=== PATIENT | male | born 1950 | race Caucasian/White ===

== ENCOUNTER → 2017-08-01 08:34 | Outpatient (CLI) | payer MEDICARE, OTHER, SELFPAY ==
--- NOTE | 2017-08-01 08:38 | AAAS_ITS ---
Reason For Study: AAA Aorta Measurements Aorta Doppler Measurements Proximal aorta measures1.6 x 1.6cm. in cross- Peak systolic flow velocities within the proximal sectional axis. aorta measure 77.3 cm/sec. Proximal aorta measures1.7cm. in longitudinal Peak systolic flow velocities within the mid axis. aorta measure 81.2 cm/sec. Mid aorta measures2.5 x 2.6cm. in cross-sectionalPeak systolic flow velocities within the distal axis. aorta measure 99.4 cm/sec. Mid aorta measures2.4cm. in longitudinal axis. Distal aorta measures1.6 x 1.7cm. in cross- sectional axis. Distal aorta measures1.7cm. in longitudinal axis. Left Iliac Artery Left iliac artery measures 1.2 cm. in the longitudinal axis. Left iliac artery measures 1.3 x 1.2 cm. in the cross-sectional axis. Peak systolic velocity in the left iliac artery measures 140.0 cm/sec. Right Iliac Artery Right iliac artery measures 1.1 cm. in the longitudinal axis. Right iliac artery measures 1.1 x 1.1 cm. in the cross-sectional axis. Peak systolic velocity in the right iliac artery measures 83.6 cm/sec. Procedure Aorta IVC Iliac vasculature or bypass grafts 42028. Exam performed in department. Interpretation Summary No evidence for abdominal aortic aneurysm wth maximal mid aortic diameter of 2.5 x 2.6 cm Right iliac 1.1cm Left iliac 1.3 cm Ordering Physician: Zeferino Melchor Referring Physician: Zeferino Melchor Performed By: Sandi Bean RVT
== END ==
PROVIDERS: Family Provider Internal Medicine; PCP Internal Medicine; Visit Provider Surgery
DX: I71.4 Abdominal aortic aneurysm, without rupture (principal)
CPT/HCPCS: 76706

== ENCOUNTER 2022-06-08 08:42 | Day surgery (SDC) | payer MEDICARE, SELFPAY ==
--- NOTE | 2022-06-05 12:06 | EKG12_ITS ---
Test Reason : PREOP Blood Pressure : / mmHG Vent. Rate : 074 BPM Atrial Rate : 074 BPM P-R Int : 198 ms QRS Dur : 078 ms QT Int : 390 ms P-R-T Axes : 046 -17 046 degrees QTc Int : 432 ms Normal sinus rhythm Normal ECG Confirmed by JOANN ALEX, MOISES ([id number]), primer expeditor and drier KEVIN CORONADO ([id number]) on 06/05/2022 1:21:09 PM Referred By: León Cook Confirmed By:MOISES DAVID MD
--- NOTE | 2022-06-05 12:06 | RAD_ITS ---
EXAM: XR CHEST, 2 VIEWS CLINICAL INDICATION: PRE-OP -- HAS EKG FIRST, WILL CALL TECHNIQUE: Frontal and lateral views of the chest. This report was created using [employer] report generation technology. COMPARISON: None. FINDINGS: LUNGS AND PLEURAL SPACES: Unremarkable. No consolidation or edema. No pneumothorax. No effusion. HEART: Unremarkable. Cardiac silhouette not enlarged. MEDIASTINUM: Central airways and mediastinal contour are unremarkable. BONES/JOINTS: Unremarkable. SOFT TISSUES: Unremarkable. RAD/Chest PA and Lateral IMPRESSION: No radiographic evidence of acute cardiopulmonary disease. Electronically Signed: Deshawn Capone MD at 5:54 EST ,
[2022-06-05 12:26] LABS: Absolute Lymphocyte Count 1.55 X10^3/uL (0.83-4.51); Basophil# 0.02 X10^3/uL; Basophil% 0.2 % (0-1); Eosinophil# 0.15 X10^3/uL; Eosinophils% 1.8 % (0-5); Hematocrit 40.3 % (40-54); Hemoglobin 13.8 g/dL (13.0-16.5); Lymphocyte # 1.55 X10^3/ul (0.83-4.51); Lymphocyte % 18.7 % (19-41); Mean Corp Hgb Conc 34.2 g/dL (32-36); Mean Corpuscular Hgb 31.7 pg (27.0-32.0); Mean Corpuscular Volume 92.4 fL (80-94); Mean Platelet Vol. 10.9 fl (6.2-12.0); Monocyte# 0.48 X10^3/uL; Monocyte% 5.8 % (0-10); NRBC Flagged by Analyzer 0 % (0-5); Neutrophil % 72.3 % (47-70); Platelet Count 183 K/mm3 (150-450); RBC Distribution Width CV 12.1 % (11.6-14.6); RBC Distribution Width SD 41.6 fl (35.1-43.9); Red Blood Count 4.36 M/mm3 (4.6-6.2); White Blood Count 8.3 K/mm3 (4.4-11.0)
[2022-06-05 12:57] LABS: Anion Gap 6 (5-15); BUN 24 mg/dL (7-18); BUN/Creat Ratio 24.9 RATIO (10-20); Calcium,Total 8.7 mg/dL (8.5-10.1); Chloride 106 mmol/L (98-107); Creatinine, Serum 0.96 mg/dL (0.70-1.30); EST Glomerular Filtration Rate 82 mL/min (>60); Est Glom Filt Rate - Afr Amer 99 mL/min (>60); Glucose 280 mg/dL (74-106); Sodium Level 140 mmol/L (136-145)
[2022-06-05 14:16] LABS: Hemoglobin A1c 8.1 % (3.8-5.6)
[2022-06-08] MEDS: Lactated Ringers 1,000 ML 15 ML IV (08:55)
[2022-06-08 09:18] VITALS: BP 144/79; PULSE 72; RESP 16; TEMP 36.9; O2SAT 94; BMI 29.8
[2022-06-08 09:41] LABS: Bedside Glucose 193 mg/dL (74-106)
[2022-06-08] MEDS: Cefazolin 2 GM in 0.9% Normal Saline 100 ML IV (10:22)
--- NOTE | 2022-06-08 10:45 | RAD_ITS ---
STUDY: X-RAY - LEFT ANKLE REASON FOR EXAM: Male, 71 years old. Intraoperative digital documentation views of ORIF of ankle. TECHNIQUE: 10 intraoperative digital documentation view(s) of the ankle. COMPARISON: None. FINDINGS: 10 intraoperative digital documentation views show plate and screw fixation of the fibula and syndesmotic fusion. RAD/Ankle 2 Views IMPRESSION: Intraoperative digital documentation views. Electronically Signed: Kimani Lacey, at 11:43 EST ,
[2022-06-08 11:35] VITALS: BP 144/79; BP 147/68; PULSE 90; RESP 18; TEMP 36.1; O2SAT 93
[2022-06-08 11:45] VITALS: BP 144/79; BP 164/77; PULSE 82; RESP 18; O2SAT 95
[2022-06-08 12:00] VITALS: BP 144/79; BP 149/7; PULSE 78; RESP 18; O2SAT 95
[2022-06-08 12:14] VITALS: BP 144/79; BP 150/74; PULSE 77; RESP 18; TEMP 36.4; O2SAT 97
[2022-06-08 12:30] VITALS: BP 144/79
[2022-06-08 12:35] LABS: Bedside Glucose 166 mg/dL (74-106)
--- NOTE | 2022-06-08 20:50 | OP.PCM_ITS ---
Report of Operation Date of Procedure: 06/08/22 Description of Surgical Findings:: Description of Surgical Findings:: Preoperative diagnosis: 1. Left ankle syndesmosis rupture/Maisonneuve fracture Postoperative diagnosis: 1. Left ankle syndesmosis rupture/Maisonneuve fracture Procedure: Open reduction internal fixation left ankle syndesmosis Primary Surgeon: León Cook DO Auto Damage Adjuster: Cammy Nagy PA-C Anesthesia: General with popliteal block [employer] Plant Operator: Deniz De La Rosa CRNA Complications: None apparent Estimated blood loss: 10 cc IV fluids: Per anesthesia record Intraoperative medications: 2 g Ancef, 10 cc 0.25% medial ankle periosteal block Urine output: None recorded Specimen: None Packing/drains: None Implants: Arthrex tight rope x2 with Arthrex 2 hole syndesmosis tubular plate Preoperative indications: This is a 71-year-old male who sustained an injury to his left ankle approximately 2 weeks ago. X-rays revealed a proximal fibula fracture. He followed up in our office and stress radiographs revealed medial clear space widening with concern for syndesmotic injury. Operative intervention in the form of left ankle syndesmosis open reduction internal fixation was reviewed with the patient. I discussed the risks, benefits, alternatives to procedure. Risks included but were not limited to bleeding, infection, loss of life or limb, persistent pain, persistent instability, stiffness, hardware removal or symptomatic hardware, posttraumatic arthritis, risk of anesthesia. Patient expressed understanding of these risks and wished to proceed with surgery. Description of procedure: Patient was identified in the preoperative holding area by name, medical record number, and date of . The operative extremity was marked. All questions were answered to patient satisfaction. Informed consent was confirmed. In the preoperative holding area, a popliteal block was administered by anesthesia staff for intraoperative and postoperative analgesia. At time of his procedure, patient was brought to the operative suite and positioned supine a standard operating table. General anesthesia was induced and laryngeal mask airway placed. After securing the tube, patient was positioned for surgery. A bump was placed under the patient's left hip and the left lower extreme was elevated on bath blankets. All bony prominences were well-padded. We then prepped and draped the right ankle in a normal, sterile orthopedic fashion. We then performed a timeout with all parties in attendance in agreement with the side, site, operation to be performed. No concerns were voiced and elected proceed. 2 g Ancef was administered by the incision by anesthesia staff. I first brought in fluoroscopy to perform stress radiography of the ankle. An external rotation, abduction stress test was applied to the right ankle and revealed medial clear space widening and increased tib-fib gapping. I then planned my incision overlying the syndesmosis. Skin was sharply incised with a 15 blade scalpel. Dissection was carried down to the level of the periosteum of the fibula. I opened the anterior compartment fascia to gain access to the syndesmosis. Injury to the syndesmotic ligaments was visualized. I placed a hemostat within the syndesmosis applying a translatory cotton test, which also demonstrated syndesmotic instability. I applied digital pressure over the lateral fibula to reduce the syndesmosis. I then drilled quad cortically for a Arthrex tight rope at the inferior portion of the syndesmosis and approximately 30 degree anterior angle in line with the qawalangin syndesmosis. The 3.5 mm drill was then removed and the tight rope was passed through the vendor supplied 2 hole plate and subsequently through all 4 cortices. I then flipped the button and subsequently tightened the suture button device to maximum tension. Approximately 1 cm proximal, and additional quad cortical drill course was made parallel with the prior 1 and parallel with the tibial plafond. Again, the tight rope was passed, flipped, tightened, and tied. Sutures were cut. F luoroscopic stress test was applied and syndesmosis appeared stable. Wound was copiously irrigated with normal saline. I anesthetized the medial ankle periosteum with 10 cc 0.25% plain bupivacaine. Dermis was reapproximated with 2-0 Vicryl suture. Horizontal mattress 3-0 nylon suture was used to reapproximate the skin. Sterile compression dressing applied as well as a well- padded posterior fiberglass splint was applied. Patient was able to be safely extubated in the operative suite without difficulty. He was transferred to his hospital bed and subsequently to PACU in stable condition. Need for skilled physician assistant: Cmamy Nagy PA-C was critical to the outcome of the case. During the course of the procedure the physician physician assistant played a vital role. Her intimate knowledge of my steps in the procedure aided in safe and expedient completion of the procedure. The PA played a vital role in positioning particularly in obtaining the appropriate positioning. The PA was also vital in the retraction of soft tissues during the exposure and protecting vital structures. The PA was also vital and obtaining fracture reduction and assisting with hardware placement. She also played a vital role in closure and splint application with my direct supervision. Post Operative Plan: Weightbearing: Nonweightbearing operative extremity Antibiotics: 2 g Ancef x 1 dose preoperatively DVT Prophylaxis:ASA 81 mg BID Hayden: None Dressing: Maintain splint, keep it clean dry and intact until follow-up X-Rays: 2 weeks postop in the office out of splint Pain Medication: Oxycodone prescription provided in the office Follow-up: 2 weeks post-operatively with me in the office
--- NOTE | 2022-06-08 20:50 | DCINST_ITS ---
Discharge Instructions Follow Up Care Test Results: Test results from this visit will be discussed in further detail at your follow- up appointment, if applicable. Discharge Plan Admission Attending Provider: León Coko Primary Care Provider: Gladys Sasm Discharge Orders/Prescriptions Prescriptions: No Action metformin 500 mg tablet extended release 24 hr 500 mg PO TID atorvastatin 20 MG tablet 20 mg PO QHS amlodipine 5 MG tablet 5 mg PO DAILY ascorbic acid (vitamin C) 500 MG tablet 500 mg PO DAILY@0800 lisinopril 30 MG tablet 40 mg PO DAILY aspirin 81 MG tablet,chewable 81 mg PO DAILY@0800 cinnamon bark 500 MG capsule 500 mg PO DAILY carvedilol 6.25 mg Tablet 6.25 mg PO BID Rx Instructions: must administer with a meal/food Referrals / Follow Up: Gladys Sams MD [Primary Care Provider] - Disposition Disposition (needs filled in before D/C Order can be placed): Home, Self Care
== END 2022-06-08 13:00 | disposition home or self-care (01) ==
LOC: SDC 08:46 → AC 08:53
PROVIDERS: Anesthesiology; PCP Internal Medicine; Referring Provider Student in an Organized Health Care Education/Training Program; Visit Provider Student in an Organized Health Care Education/Training Program
PROC: (CPT 27829; principal; 2022-06-08 10:15)
DX: S82.862A Displaced Maisonneuve's fracture of left leg, initial encounter for closed fracture (principal); E11.9 Type 2 diabetes mellitus without complications; W10.9XXA Fall (on) (from) unspecified stairs and steps, initial encounter; I10 Essential (primary) hypertension; E78.00 Pure hypercholesterolemia, unspecified; E66.8 Other obesity; Z68.31 Body mass index [BMI] 31.0-31.9, adult; Z79.82 Long term (current) use of aspirin; Z79.84 Long term (current) use of oral hypoglycemic drugs; Z79.899 Other long term (current) drug therapy; Z87.891 Personal history of nicotine dependence
CPT/HCPCS: 27829; 01480; 36415; 71046; 73600; 76000; 80048; 82962; 83036; 85025; 93005; C1713; J7120; J2405

== ENCOUNTER 2023-04-07 21:34 | Emergency (ER) | payer MEDICARE, SELFPAY ==
[2023-04-07 21:35] VITALS: BP 188/72; PULSE 79; RESP 15; TEMP 36.8; O2SAT 95; BMI 29.9
[2023-04-07 22:01] LABS: Bacteria 0 SEEN /hpf (None Seen); Mucous, Urine 0 SEEN /hpf (<or=2+); Squamous Epithelial Cells - UA 0 SEEN /hpf (0-5)
--- NOTE | 2023-04-07 22:06 | CT_ITS ---
STUDY: CT ABDOMEN AND PELVIS WITHOUT CONTRAST REASON FOR EXAM: Male, 72 years old. flank pain RADIATION DOSAGE (If Supplied By Facility): CTDIvol = ( 10.89 ) mGy, DLP = ( 568.74 ) mGycm TECHNIQUE: Transaxial images were obtained from the dome of the diaphragm to the symphysis pubis without oral contrast, and without intravenous contrast. Sagittal and coronal images were reconstructed. Individualized dose optimization techniques were used for this CT. COMPARISON: None. FINDINGS: The visualized lung bases are unremarkable. Coronary artery atherosclerosis. Normal liver. Normal gallbladder and extrahepatic biliary system. Normal spleen. Normal pancreas. Normal bilateral adrenal glands. Normal right kidney. Mild left hydronephrosis and perinephric stranding with a 3 mm calculus in the distal left ureter on image 148 of series 2. Normal visualized stomach. Normal small intestine. Normal colon. The appendix is visualized and appears normal. Atherosclerosis of the abdominal aorta with aortobiiliac stent graft. Normal inferior vena cava. Normal retroperitoneum. Normal urinary bladder. There is a small umbilical hernia containing fat. There are diffuse degenerative changes of the visualized lumbar spine. CT/Abdomen/Pelvis without Cont IMPRESSION: Distal left ureter calculus with mild hydronephrosis/obstruction. Electronically Signed: Chidi Shetty MD ([place]) at 22:41 EDT ,
[2023-04-07 22:07] LABS: Color, Urine Yellow (Yellow); Glucose, Dipstick 100 mg/dl (Normal); Ketone-Dipstick 15 mg/dl (Negative); Leukocyte Esterase-Dipstick Negative /ul (Negative); Nitrite-Dipstick Negative (Negative); Occult Blood-Urine 250 /ul (Negative); Protein-Dipstick 30 mg/dl (Negative); Specific Gravity, Urine 1.015 (1.002-1.030); Urine Bilirubin Dipstick Negative (Negative); Urine Clarity Sl. Cloudy (Clear); Urine Urobilinogen Normal (Normal)
[2023-04-07] MEDS: Ketorolac 15 MG/ML Vial IV (22:14)
[2023-04-07] MEDS: Ondansetron 4 MG/2 ML Vial IV (22:14)
[2023-04-07] MEDS: 0.9% Normal Saline (1000mL) 1,000 ML 999 ML IV (22:15)
[2023-04-07 22:18] LABS: Red Blood Cells-Urine > 100 SEEN /hpf (0-5)
[2023-04-07 22:21] LABS: White Blood Cells 0-5 SEEN /hpf (0-5)
[2023-04-07 22:27] LABS: Absolute Lymphocyte Count 1.44 X10^3/uL (0.83-4.51); Absolute Neutrophil Count 7.2 X10^3/uL (2.0-7.7); Basophil# 0.02 X10^3/uL; Basophil% 0.2 % (0-1); Eosinophil# 0.19 X10^3/uL; Hematocrit 39.8 % (40-54); Hemoglobin 13.4 g/dL (13.0-16.5); Lymphocyte # 1.44 X10^3/ul (0.83-4.51); Lymphocyte % 15.4 % (19-41); Mean Corp Hgb Conc 33.7 g/dL (32-36); Mean Corpuscular Hgb 31.3 pg (27.0-32.0); Mean Platelet Vol. 11.3 fl (6.2-12.0); Monocyte# 0.45 X10^3/uL; Monocyte% 4.8 % (0-10); NRBC Flagged by Analyzer 0 % (0-5); Neutrophil # 7.24 X10^3/uL (2.7-7.7); Neutrophil % 77.3 % (47-70); Platelet Count 140 K/mm3 (150-450); RBC Distribution Width CV 12.3 % (11.6-14.6); RBC Distribution Width SD 42.1 fl (35.1-43.9); Red Blood Count 4.28 M/mm3 (4.6-6.2); White Blood Count 9.4 K/mm3 (4.4-11.0)
[2023-04-07 22:41] LABS: Anion Gap 8 (5-15); BUN 25 mg/dL (7-18); BUN/Creat Ratio 26.6 RATIO (10-20); Calcium,Total 9.2 mg/dL (8.5-10.1); Chloride 106 mmol/L (98-107); Creatinine, Serum 0.94 mg/dL (0.70-1.30); EST Glomerular Filtration Rate 84 mL/min (>60); Est Glom Filt Rate - Afr Amer 101 mL/min (>60); Estimated Creatinine Clearance 66.41 ml/min; Glucose 246 mg/dL (74-106); Potassium 3.9 mmol/L (3.5-5.1); Sodium Level 142 mmol/L (136-145)
--- NOTE | 2023-04-07 23:31 | EX.ED.DYSGE1 ---
HPI History of Present Illness Chief Complaint: Flank Pain Informant: patient and spouse/S.O. Narrative Narrative: Patient is a 72-year-old male with past medical history of hypertension hyperlipidemia and diabetes. He states that around dinnertime he was sitting at rest when he noticed some left-sided back/flank pain. He states there was no trauma or excessive activity. He states the pain was sharp and causes nausea. He reports the pain improved but then 1 to 2 hours later returned and increased in severity. He states the pain has been persistent since that time and secondary to this comes in for evaluation [facility] Medical History (Updated 04/08/23 @ 00:[address] Gabe Arevalo, DO) AAA (abdominal aortic aneurysm) without rupture Back pain Cardiology follow-up encounter Diabetes Dietary restriction Former smoker History of stress test HTN (hypertension) Hyperlipidemia Wears glasses Home Medications amlodipine 5 mg tablet 5 mg PO DAILY 10/31/16 [History Last Taken 06/08/22] ascorbic acid (vitamin C) 500 mg tablet 500 mg PO DAILY@0800 10/31/16 [History Last Taken 10/31/16] aspirin 81 mg chewable tablet 81 mg PO DAILY@0800 10/31/16 [History Last Taken 10/31/16] atorvastatin 20 mg tablet 20 mg PO QHS 10/31/16 [History Last Taken 10/30/16] cinnamon bark 500 mg capsule 500 mg PO DAILY 10/31/16 [History Last Taken 10/31/16] lisinopril 30 mg tablet 40 mg PO DAILY 10/31/16 [History Last Taken 06/08/22] metformin 500 mg tablet,extended release 24 hr 500 mg PO TID 08/03/17 [History Last Taken Unknown] carvedilol 6.25 mg tablet 6.25 mg PO BID 06/05/22 [History Last Taken 06/08/22] ketorolac 10 mg tablet 10 mg PO Q6H PRN pain 5 days #20 tabs 04/07/23 [Rx Last Taken Unknown] ondansetron 4 mg disintegrating tablet 4 mg PO TID PRN nausea and vomiting #21 tabs 04/07/23 [Rx Last Taken Unknown] oxycodone-acetaminophen 5 mg-325 mg tablet (Percocet) 1 tab PO Q6H PRN pain 3 days #12 tabs 04/07/23 [Rx Last Taken Unknown] tamsulosin 0.4 mg capsule (Flomax) 0.4 mg PO DAILY #14 caps 04/07/23 [Rx Last Taken Unknown] Allergy/AdvReac Type Severity Reaction Status Date / Time No Known Allergies Allergy Verified 04/07/23 21:40 Family History (Updated 08/03/17 @ 09:32 by Danyelle Gonzalez) Mother Cancer lung Father Cancer brain Surgical History S/P colonoscopy S/P tonsillectomy Status post AAA (abdominal aortic aneurysm) repair Social History (Updated 08/03/17 @ 09:[address] Zeferino Melchor MD) Smoking Status: Former smoker ROS ROS ED Constitutional Constitutional ED: Denies chills or fever(s) ENT ENT ED: Denies sore throat Cardiovascular Cardiovascular: Denies chest pain Respiratory/Chest Respiratory/Chest: Denies cough or dyspnea Gastrointestinal Gastrointestinal: Reports abdominal pain; Denies diarrhea, nausea or vomiting Genitourinary Genitourinary ED: Denies dysuria, hematuria or urinary frequency Musculoskeletal Musculoskeletal: Reports back pain; Denies myalgias Integumentary Denies rash Neurologic Neurologic: Denies headache(s) Hematologic/Lymphatic Hematologic/Lymphatic: Denies easy bleeding or easy bruising EXAM Physical Exam Const Vital Signs: 04/07/23 21:35 04/07/23 23:45 Temperature 98.2 F Temperature Source Temporal Pulse Rate 79 70 Respiratory Rate 15 18 Blood Pressure 188/72 H 136/64 H Blood Pressure Mean 110 88 Pulse Ox 95 96 Oxygen Delivery Method Room Air Positive well nourished and well developed General Appearance ED: well developed HEENT HEENT Narrative: Normocephalic atraumatic Eyes PERRL and EOMs intact bilaterally General Eye ED: Negative for scleral icterus Neck supple Resp normal respiratory effort and clear to auscultation bilaterally Cardio regular rate and regular rhythm Rate: other Other Details: Heart is regular rate and rhythm without murmurs rubs or gallops Radial and carotid pulses are equal and symmetric GI normal to inspection, nondistended, normoactive bowel sounds, non-tender, non-distended and no masses GI Narrative: No voluntary guarding or rigidity Pulsatile mass or fluid wave Auscultation: normoactive bowel sounds Palpation: soft Back/Spine Back/Spine Narrative: Positive left CVA pain noted Extremity normal to inspection Neuro oriented x3, CN's II-XII intact bilaterally and no sensory deficits noted Sensorium / Orientation: alert Motor Exam: strength 5/5 throughout Psych mental status grossly normal Skin no rashes or lesions noted Skin Narrative: No overlying soft tissue changes to suggest trauma or infection General Skin Exam: Negative for jaundice MDM MDM MDM Narrative Medical decision making narrative: Patient presented to the ER hypertensive but otherwise with stable vitals. History and exam is most concerning for kidney stone but other differential diagnoses are for diverticulitis versus UTI versus pyelonephritis versus pancreatitis or biliary colic. As history and exam is most consistent with kidney stone I like to perform basic laboratory study. Patient CT scan did show a 3 mm stone causing mild hydronephrosis. However there are no signs of urosepsis or acute kidney injury or UTI or severe electrolyte derangement. After treatment patient reported resolution of his pain and vitals remained stable and therefore he is otherwise safe for discharge and can follow-up with urology on an outpatient basis History & Record Review Discussion w/independent historian: Patient and Significant other Lab Data Attestation: I reviewed the patient's lab results. Labs: Laboratory Results - last 24 hr 04/07/23 04/07/23 21:53 22:15 WBC 9.4 RBC 4.28 L Hgb 13.4 Hct 39.8 L MCV 93.0 MCH 31.3 MCHC 33.7 RDW Std Deviation 42.1 RDW Coeff of Pricila 12.3 Plt Count 140 L MPV 11.3 Immature Gran % (Auto) 0.300 Neut % (Auto) 77.3 H Lymph % (Auto) 15.4 L Woods % (Auto) 4.8 Eos % (Auto) 2.0 Baso % (Auto) 0.2 Absolute Neuts (auto) 7.2 Absolute Lymphs (auto) 1.44 Nucleated RBC % 0 Sodium 142 Potassium 3.9 Chloride 106 Carbon Dioxide 28.0 Anion Gap 8 BUN 25 H Creatinine 0.94 Estim Creat Clear Calc 66.41 Est GFR (MDRD) Af Amer 101 Est GFR (MDRD) Non-Af 84 BUN/Creatinine Ratio 26.6 H Glucose 246 H Calcium 9.2 Urine Color Yellow Urine Clarity Sl. Cloudy Urine pH 8.0 Ur Specific [place] 1.015 Urine Protein 30 H Urine Glucose (UA) 100 H Urine Ketones 15 H Urine Occult Blood 250 H Urine Nitrite Negative Urine Bilirubin Negative Urine Urobilinogen Normal Ur Leukocyte Esterase Negative Urine RBC > 100 SEEN Urine WBC 0-5 SEEN Ur Squamous Epith Cells 0 SEEN Urine Bacteria 0 SEEN Urine Mucus 0 SEEN Radiography Diagnostic Testing: Clinical Impression(s) from Imaging Studies Abdomen/Pelvis CT 04/07/23 22:06 IMPRESSION: Distal left ureter calculus with mild hydronephrosis/obstruction. Electronically Signed: Chidi Shetty MD ([place]) at 22:41 EDT , Discharge Plan Triage Chief Complaint: Flank Pain ED Provider: Gabe Arevalo Dx/Rx/DC Orders Clinical Impression: Renal colic, Kidney stone on left side, Diabetes, HTN (hypertension) Instructions: ED Kidney Stone w/ Colic Prescriptions: New tamsulosin [Flomax] 0.4 mg capsule 0.4 mg PO DAILY Qty: 14 0RF ondansetron 4 mg tablet,disintegrating 4 mg PO TID PRN (Reason: nausea and vomiting) Qty: 21 0RF ketorolac 10 mg tablet 10 mg PO Q6H PRN (Reason: pain) 5 Days Qty: 20 0RF oxycodone-acetaminophen [Percocet] 5-325 mg tablet 1 tab PO Q6H PRN (Reason: pain) 3 Days Qty: 12 0RF No Action metformin 500 mg tablet extended release 24 hr 500 mg PO TID atorvastatin 20 MG tablet 20 mg PO QHS amlodipine 5 MG tablet 5 mg PO DAILY ascorbic acid (vitamin C) 500 MG tablet 500 mg PO DAILY@0800 lisinopril 30 MG tablet 40 mg PO DAILY aspirin 81 MG tablet,chewable 81 mg PO DAILY@0800 cinnamon bark 500 MG capsule 500 mg PO DAILY carvedilol 6.25 mg Tablet 6.25 mg PO BID Rx Instructions: must administer with a meal/food Primary Care Provider: Gladys Sams Referrals: Guillaume Rosas MD [Med Staff - Active Staff] - Gladys Sams MD [Primary Care Provider] - Activity Restrictions/Additional Instructions: Please return to the ER if you develop a fever over 100.4 or your pain is not controlled outpatient therapy Disposition Disposition: Home, Self Care Discharge Date/Time: 04/07/23 23:46
[2023-04-07] MEDS: Oxycodone/Apap 5/325 Tablet PO (23:42)
[2023-04-07 23:45] VITALS: BP 136/64; PULSE 70; RESP 18; O2SAT 96
== END 2023-04-07 23:46 | disposition home or self-care (01) ==
PROVIDERS: Emergency Provider Emergency Medicine; PCP Internal Medicine; Visit Provider Emergency Medicine
DX: N13.2 Hydronephrosis with renal and ureteral calculous obstruction (principal); E11.9 Type 2 diabetes mellitus without complications; I10 Essential (primary) hypertension; E78.5 Hyperlipidemia, unspecified; Z79.82 Long term (current) use of aspirin; Z79.899 Other long term (current) drug therapy; Z87.891 Personal history of nicotine dependence
CPT/HCPCS: 74176; 80048; 81001; 85025; 96361; 96374; 96375; 99283; J7030; A4216; J2405

== ENCOUNTER 2025-04-26 13:00 | Emergency (ER) | payer MEDICARE, SELFPAY ==
[2025-04-26 13:01] VITALS: BP 150/74; PULSE 65; RESP 18; TEMP 36.4; O2SAT 99; BMI 28.2
--- OUTSIDE RECORDS SUMMARY | 2025-04-26 15:22 | XMS RPT_ITS | CCD ---
Author Organization [facility] Care Team Providers Care Bookstore Manager Name Role Phone MARIA ISABEL, TRENT E Unavailable Unavailable MARIA ISABEL, TRENT E Unavailable Unavailable MARIA ISABEL, TRENT Unavailable Unavailable MARIA ISABEL, TRENT Unavailable Unavailable MARIA ISABEL, TRENT Unavailable Unavailable MARIA ISABEL, TRENT Unavailable Unavailable KENNYYOBANI SONG Attending Unavailable KENNYYOBANI RUELAS Primary Care Unavailable KENNYYOBANI RUELAS Admitting Unavailable KENNYYOBANI SONG Attending Unavailable KENNYYOBANI RUELAS Primary Care Unavailable KENNYYOBANI SONG Admitting Unavailable India Sams MD Primary Care Provider Yobani Davis Unavailable India Sams MD Primary Care Provider Yobani Davis Unavailable [phone] Yobani Davis Unavailable [phone] India Sams Primary Care Unavailable Mesfin Acuña Attending Unavailable León Cook Referring Unavailable León Cook Referring Unavailable León Cook Attending Unavailable India Sams Primary Care Unavailable India Sams MD Primary Care Provider Yobani Davis Unavailable [phone] Yobani Davis OD Unavailable India Sams MD Primary Care Provider Torin TECHNICAL SUPPORT ANALYST.SENIOR EDITOR, Abigail Unavailable Teodoro TECHNICAL SUPPORT ANALYST.PACKING AND STAMPING MACHINE OPERATOR, Marium Unavailable Teodoro TECHNICAL SUPPORT ANALYST.PACKING AND STAMPING MACHINE OPERATOR, Marium Unavailable Harkins TECHNICAL SUPPORT ANALYST.SENIOR EDITOR, Abigail Unavailable INDIA SAMS Attending Unavailable TALAMPAS, INDIA D Primary Care Unavailable MARIUM VALERIO Attending Unavailable TALAMPAS, INDIA D Primary Care Unavailable TALAMPAS, INDIA D Primary Care Unavailable MARIUM VALERIO Referring Unavailable TALAMPAS, INDIA D Primary Care Unavailable TALAMPAS, INDIA D Referring Unavailable TALAMPAS, INDIA D Primary Care Unavailable TALAMPAS, INDIA D Referring Unavailable Medications Current Medications Medication Drug Class(es) Dates Sig (Normalized) Sig (Original) acetaminophen 325 mg / oxyCODONE hydrochloride 5 mg oral tablet (1 source) Opioid Agonist Start: 04-07-2023 take 1 tablet by mouth every six hours Oxycodone-Acetam inophen (Percocet) 5-325 mg tablet Active 1 TABLET PO EVERY 6 HOURS 12 3 April 07, 2023 amLODIPine 10 mg oral tablet (20 sources) Dihydropyridine Calcium Channel Charlie Start: 08-05-2024 take 1 tablet by mouth once daily amLODIPine (NORVASC) 10 mg tablet Take 1 tablet by mouth once daily. 90 tablet 3 08/05/2024 Active Start: 03-27-2022 End: 08-02-2024 take 1 tablet by mouth once daily amLODIPine (NORVASC) 10 mg tablet Take 1 tablet by mouth once daily. 90 tablet 3 12/29/2022 08/02/2024 Discontinued Start: 06-09-2021 End: 03-25-2022 take 1 tablet by mouth once daily amLODIPine (NORVASC) 10 mg tablet Take 1 tablet by mouth once daily. 90 tablet 3 06/09/2021 03/25/2022 Discontinued Start: 10-31-2016 take 5 mg by mouth once daily Amlodipine Active 5 MG PO DAILY October 31, 2016 12:00am Comment on above: Take 1 tablet by vania th once daily. ascorbic acid 500 mg oral tablet (20 sources) Vitamin C Start: 08-13-2007 ascorbic acid(VITAMIN C 500 MG TAB) Take one(1) tablet daily. 0 08/13/2007 Active Comment on above: Take one(1) tablet d aily. aspirin 81 mg chewable tablet (20 sources) Platelet Aggregation Inhibitor, Nonsteroidal Anti-inflammatory Drug Start: 10-31-2016 take 81 mg by mouth once daily Aspirin Active 81 MG PO DAILY@0800 October 31, 2016 12:00am Start: 08-13-2007 aspirin(ECOTRI N LOW STRENGTH 81 MG TAB) Take one(1) tablet daily. 0 08/13/2007 Active Comment on above: Take one(1) tablet d aily. atorvastatin 20 mg oral tablet (20 sources) HMG-CoA Reductase Inhibitor Start: take 1 tablet by mouth once daily atorvastatin (LIPITOR) 20 mg tablet Indications: Mixed hyperlipidemia Take 1 tablet by mouth once daily. 90 tablet 3 11/24/2024 Active Start: 10-31-2016 End: 11-22-2024 take 1 tablet by mouth once daily atorvastatin (LIPITOR) 20 mg tablet Indications: Mixed hyperlipidemia Take 1 tablet by mouth once daily. 90 tablet 3 02/21/2023 11/22/2024 Discontinued Comment on above: Take 1 tablet by vania th once daily. carvedilol 6.25 mg oral tablet (20 sources) alpha-Adrenergic Charlie, beta-Adrenergic Charlie Start: 06-05-2022 End: 01-26-2025 take 1 tablet by mouth twice daily carvedilol (COREG) 6.25 mg tablet Indications: Essential hypertension Take 1 tablet by mouth two times a day. 180 tablet 3 01/27/2025 Active Start: 10-31-2021 take 1 tablet by vania th twice daily carvedilol (COREG) 6.25 mg tablet Indications: Essential hypertension Take 1 tablet by mouth twice daily. 180 tablet 3 10/31/2021 Active Start: 01-05-2021 take 1 tablet by vania th twice daily carvedilol (COREG) 6.25 mg tablet Indications: Essential hypertension Take 1 tablet by mouth twice daily. 180 tablet 3 01/05/2021 Active Comment on above: Take 1 tablet by vania th twice daily. Take 1 tablet by vania th two times a day. cinnamon bark 500 mg oral capsule (20 sources) Start: 12-10-19 10 cinnamon bark(CINNAMON 500 MG CAP) Take one(1) tablet daily. 0 12/09/2009 Active Comment on above: Take one(1) tablet d aily. ibuprofen 200 mg oral tablet (20 sources) Nonsteroidal Anti-inflammatory Drug Start: 07-31-19 19 ibuprofen (MOTRIN) 200 mg tablet Indications: Back strain, initial encounter , Acute right-sided low back pain with right-sided sciatica May take 2 to 4 pills up to 4 times daily (max 2400 mg per day) 07/31/2018 Active Comment on above: May take 2 to 4 pill s up to 4 times daily (max 2400 mg per day) ketorolac tromethamine 10 mg oral tablet (1 source) Nonsteroidal Anti-inflammatory Drug, Cyclooxygenase Inhibitor Start: 04-07-20 take 10 mg by mouth every six hours Ketorolac Active 10 MG PO EVERY 6 HOURS 04 11April 07, 2023 12:00am lisinopril 40 mg oral tablet (20 sources) Angiotensin Converting Enzyme Inhibitor Start: 08-05-19 take 1 tablet by mouth once daily lisinopril (ZESTRIL) 40 mg tablet Indications: Essential hypertension Take 1 tablet by mouth once daily. 90 tablet 3 08/05/2024 Active Start: 12-29-2022 End: 08-02-2024 take 1 tablet by mouth once daily lisinopril (ZESTRIL) 40 mg tablet Indications: Essential hypertension Take 1 tablet by mouth once daily. 90 tablet 3 12/29/2022 08/02/2024 Discontinued Start: 05-13-2021 End: 02-27-2022 take 1 tablet by mouth once daily lisinopril (ZESTRIL, PRINIVIL) 40 mg tablet Indications: Essential hypertension Take 1 tablet by mouth once daily. 90 tablet 3 02/28/2022 Active Start: 10-31-2016 take 40 mg by mouth once daily Lisinopril Active 40 MG PO DAILY October 31, 2016 12:00am Comment on above: Take 1 tablet by vania th once daily. 24 hr metFORMIN hydrochloride 500 mg extended release oral tablet (20 sources) Biguanide Start: 08-03-19 End: 10-31-19 take 1 tablet by mouth three times daily before mealtime metFORMIN ER (GLUCOPHAGE XR) 500 mg 24 hr tablet Indications: Controlled type 2 diabetes mellitus without complication, without long-term current use of insulin (HCC) Take 1 tablet by mouth three times a day before meals. 270 tablet 3 10/30/2024 Active Comment on above: TAKE 1 TABLET BY VANIA TH THREE TIMES DAILY BEFORE MEALS. ondansetron 4 mg disintegrating oral tablet (1 source) Serotonin-3 Receptor Antagonist Start: 04-07-20 take 4 mg by mouth three times daily Ondansetron Active 4 MG PO THREE TIMES A DAY April 07, 2023 11:32pm tamsulosin hydrochloride 0.4 mg oral capsule (1 source) alpha-Adrenergic Charlie Start: 04-07-20 take 1 capsule by mouth once daily Tamsulosin (Flomax) 0.4 mg capsule Active 0.4 MG PO DAILY April 07, 2023 12:00am Completed/Discontinued Medications Medication Drug Class(es) Dates Sig (Normalized) Sig (Original) acetaminophen 325 mg / HYDROcodone bitartrate 5 mg oral tablet (2 sources) Opioid Agonist Start: 10-31-2016 End: 08-03-2017 Hydrocodone-Acetami nophen Discontinued 1 EACH PO EVERY 6 HOURS NEEDED October 31, 2016 12:00pm August 03, 2017 10:33am Blood-Glucose Meter (RELION PRIME METER) misc (1 source) Start: 12-21-2015 End: 07-25-2021 Blood-Glucose Meter (RELION PRIME METER) misc Checks sugars every 3 days or so 0 12/21/2015 07/25/2021 Discontinued Comment on above: Checks sugars every 3 days or so Problems Active Problems Problem Classification Problem Date Documented Date Episodic/Chronic Calculus of urinary tract (2 sources) Renal colic; Translations: [Unspecified renal colic] 04-07-2023 Episodic Diabetes mellitus with complications (6 sources) Hyperlipidemia; Translations: [Type 2 diabetes mellitus with other specified complication] Onset: 09-29-2024 09-29-2024 Chronic Diabetes mellitus without complication (20 sources) Type 2 diabetes mellitus without complication; Translations: [Type 2 diabetes mellitus without complications] Onset: 06-13-2021 Chronic Disorders of lipid metabolism (20 sources) Other hyperlipidemia; Translations: [Mixed hyperlipidemia] Onset: 08-13-2007 Resolved: 10-06-2013 Chronic Essential hypertension (20 sources) Essential (primary) hypertension; Translations: [Essential hypertension] Onset: 07-06-2016 Chronic Fracture of lower limb (1 source) Other fracture of upper and lower end of left fibula, initial encounter for closed fracture; Translations: [Other fracture of upper and lower end of left fibula, initial encounter for closed fracture] Onset: 07-18-2022 Episodic Immunizations and screening for infectious disease (6 sources) Patient encounter status; Translations: [Encounter for immunization] 10-02-2023 Episodic Occlusion or stenosis of precerebral arteries (20 sources) Carotid artery occlusion; Translations: [Occlusion and stenosis of unspecified carotid artery] Onset: 11-19-2013 11-19-2013 Chronic Other aftercare (1 source) Encounter for therapeutic drug level monitoring; Translations: [Encounter for therapeutic drug monitoring] Onset: 03-31-2025 Episodic Other circulatory disease (7 sources) History of repair of aneurysm of abdominal aorta using endovascular stent graft; Translations: [Presence of other vascular implants and grafts] 09-24-2016 Chronic Other circulatory disease (15 sources) History of endovascular stent graft for repair of abdominal aortic aneurysm; Translations: [Presence of other vascular implants and grafts] 09-24-2016 Chronic Other infections; including parasitic (1 source) Personal history of other infectious and parasitic diseases; Translations: [Personal history of COVID-19] Episodic Other nervous system disorders (20 sources) Disorder of autonomic nervous system; Translations: [Disorder of the autonomic nervous system, unspecified] Onset: 08-13-2007 11-18-2008 Chronic Other screening for suspected conditions (not mental disorders or infectious disease) (9 sources) Blood chemistry abnormal; Translations: [Other specified abnormal findings of blood chemistry] Onset: 08-13-2007 Resolved: 10-06-2013 10-06-2013 Episodic Other upper respiratory infections (2 sources) Acute upper respiratory infection; Translations: [Acute upper respiratory infection, unspecified] 05-14-2023 Episodic Residual codes; unclassified (2 sources) History of colonoscopy; Translations: [Other specified postprocedural states] 06-05-2022 Episodic Residual codes; unclassified (2 sources) History of repair of aneurysm of abdominal aorta; Translations: [Other specified postprocedural states] 06-05-2022 Episodic Screening and history of mental health and substance abuse codes (2 sources) Encounter for screening for depression; Translations: [Encounter for screening examination for other mental health and behavioral disorders] Onset: 04-07-2025 Episodic Unclassified (1 source) Unknown / UNK(Unknown) Onset: 04-23-2017 Past or Other Problems Problem Classification Problem Date Documented Da te Episodic/Chronic Abdominal hernia (20 sources) Umbilical hernia; Translations: [Umbilical hernia without obstruction or gangrene] Onset: 12-29-2013 12-29-2013 Episodic Aortic; peripheral; and visceral artery aneurysms (10 sources) Abdominal aortic aneurysm without rupture; Translations: [Abdominal aortic aneurysm (AAA) without rupture] Onset: 11-11-2013 Resolved: 09-24-2016 06-05-2022 Chronic Other connective tissue disease (20 sources) Plantar fasciitis of left foot; Translations: [Plantar fascial fibromatosis] Onset: 03-28-2018 03-28-2018 Episodic Other nutritional; endocrine; and metabolic disorders (8 sources) Obesity; Translations: [Obesity, unspecified] Onset: 08-13-2007 Resolved: 10-06-2013 10-06-2013 Chronic Unclassified (8 sources) Type 2 diabetes mellitus without complication; Translations: [Uncontrolled type 2 diabetes mellitus without complication, without long-term current use of insulin] Onset: 09-11-2016 Resolved: 10-11-2017 10-11-2017 Results Test Name Value Interpretation Reference Range Facility ALBUMIN/CREATININE RATIO, UR INEon 03-31-2025 Albumin DL <= 20 mg/L (U) [Mass/Vol] mg/dL Normal [facility] Comment on above: Order Comment: Speci men Type: URINE SPECIMEN Ordering Facility: [facility] Address: [address] [place] [address] Performed By: #### U ACR #### [facility] CLIA [id number] [address] [place] [address] [place] Albumin/Creatinine (U) [Mass ratio] <15 Normal <30 [facility] Comment on above: Order Comment: Speci men Type: URINE SPECIMEN Ordering Facility: [facility] Address: [address] [place] [address] Result Comment: Adul t Male and Female Nephrotic Criteria: <30 mg/g is considered normal to mildly increased 30-300 mg/g is considered moderately increased >300 mg/g is considered severely increased KDIGO. (2013). KDIGO 2012 Clinical Practice Guideline for the Evaluation and Management of Chronic Kidney Disease. Official Journal of the International Society of Nephrology, 3(1), 1-150. Performed By: #### U ACR #### [facility] CLIA [id number] [address] [place] [address] [place] Creatinine (U) [Mass/Vol] 78.6 mg/dL Normal 20.0-300.0 [facility] Comment on above: Order Comment: Speci men Type: URINE SPECIMEN Ordering Facility: [facility] Address: [address] [place] [address] Performed By: #### U ACR #### [facility] CLIA [id number] [address] [place] [address] [place] CBC W Auto Differential pane l (Bld)on 03-31-2025 Basophils (Bld) [#/Vol] 0.03 10*3/uL Normal <0.11 [facility] Comment on above: Order Comment: Speci men Type: BLOOD SPECIMEN Ordering Facility: [facility] Address: [address] [place] [address] Performed By: #### 5 7021-8 #### [facility] CLIA [id number] [address] [place] [address] [place] Basophils/100 WBC (Bld) 0.5 % Normal [facility] Comment on above: Order Comment: Speci men Type: BLOOD SPECIMEN Ordering Facility: [facility] Address: [address] [place] [address] Performed By: #### 5 7021-8 #### [facility] CLIA [id number] [address] [place] [address] [place] Differential cell count method Nom (Bld) Auto Normal [facility] Comment on above: Order Comment: Speci men Type: BLOOD SPECIMEN Ordering Facility: [facility] Address: [address] [place] [address] Performed By: #### 5 7021-8 #### [facility] CLIA [id number] [address] [place] [address] [place] Eosinophils (Bld) [#/Vol] 0.25 10*3/uL Normal <0.46 [facility] Comment on above: Order Comment: Speci men Type: BLOOD SPECIMEN Ordering Facility: [facility] Address: [address] [place] [address] Performed By: #### 5 7021-8 #### [facility] CLIA [id number] [address] [place] [address] [place] Eosinophils/100 WBC (Bld) 4.1 % Normal [facility] Comment on above: Order Comment: Speci men Type: BLOOD SPECIMEN Ordering Facility: [facility] Address: [address] [place] [address] Performed By: #### 5 7021-8 #### [facility] CLIA [id number] [address] [place] [address] [place] Erythrocyte distribution width (RBC) [Ratio] 12.4 % Normal 11.5-15.0 [facility] Comment on above: Order Comment: Speci men Type: BLOOD SPECIMEN Ordering Facility: [facility] Address: [address] [place] [address] Performed By: #### 5 7021-8 #### [facility] CLIA [id number] [address] [place] [address] [place] Hematocrit (Bld) [Volume fraction] 41.5 % Normal 39.0-51.0 [facility] Comment on above: Order Comment: Speci men Type: BLOOD SPECIMEN Ordering Facility: [facility] Address: [address] [place] [address] Performed By: #### 5 7021-8 #### [facility] CLIA [id number] [address] [place] [address] [place] Hemoglobin (Bld) [Mass/Vol] 14.4 g/dL Normal 13.0-17.0 [facility] Comment on above: Order Comment: Speci men Type: BLOOD SPECIMEN Ordering Facility: [facility] Address: [address] [place] [address] Performed By: #### 5 7021-8 #### [facility] CLIA [id number] [address] [place] [address] [place] Immature granulocytes (Bld) [#/Vol] 10*3/uL Normal <0.10 [facility] Comment on above: Order Comment: Speci men Type: BLOOD SPECIMEN Ordering Facility: [facility] Address: [address] [place] [address] Performed By: #### 5 7021-8 #### [facility] CLIA [id number] [address] [place] [address] [place] Immature granulocytes/100 WBC (Bld) 0.2 % Normal [facility] Comment on above: Order Comment: Speci men Type: BLOOD SPECIMEN Ordering Facility: [facility] Address: [address] [place] [address] Performed By: #### 5 7021-8 #### [facility] CLIA [id number] [address] [place] [address] [place] Lymphocytes (Bld) [#/Vol] 1.71 10*3/uL Normal 1.00-4.00 [facility] Comment on above: Order Comment: Speci men Type: BLOOD SPECIMEN Ordering Facility: [facility] Address: [address] [place] [address] Performed By: #### 5 7021-8 #### [facility] CLIA [id number] [address] [place] [address] [place] Lymphocytes/100 WBC (Bld) 28.2 % Normal [facility] Comment on above: Order Comment: Speci men Type: BLOOD SPECIMEN Ordering Facility: [facility] Address: [address] [place] [address] Performed By: #### 5 7021-8 #### [facility] CLIA [id number] [address] [place] [address] [place] MCH (RBC) [Entitic mass] 32.4 pg Normal 26.0-34.0 [facility] Comment on above: Order Comment: Speci men Type: BLOOD SPECIMEN Ordering Facility: [facility] Address: [address] [place] [address] Performed By: #### 5 7021-8 #### [facility] CLIA [id number] [address] [place] [address] [place] MCHC (RBC) [Mass/Vol] 34.7 g/dL Normal 30.5-36.0 [facility] Comment on above: Order Comment: Speci men Type: BLOOD SPECIMEN Ordering Facility: [facility] Address: [address] [place] [address] Performed By: #### 5 7021-8 #### [facility] CLIA [id number] [address] [place] [address] [place] MCV (RBC) [Entitic vol] 93.3 fL Normal 80.0-100.0 [facility] Comment on above: Order Comment: Speci men Type: BLOOD SPECIMEN Ordering Facility: [facility] Address: [address] [place] [address] Performed By: #### 5 7021-8 #### [facility] CLIA [id number] [address] [place] [address] [place] Monocytes (Bld) [#/Vol] 0.35 10*3/uL Normal <0.87 [facility] Comment on above: Order Comment: Speci men Type: BLOOD SPECIMEN Ordering Facility: [facility] Address: [address] [place] [address] Performed By: #### 5 7021-8 #### [facility] CLIA [id number] [address] [place] [address] [place] Monocytes/100 WBC (Bld) 5.8 % Normal [facility] Comment on above: Order Comment: Speci men Type: BLOOD SPECIMEN Ordering Facility: [facility] Address: [address] [place] [address] Performed By: #### 5 7021-8 #### [facility] CLIA [id number] [address] [place] [address] [place] Neutrophils (Bld) [#/Vol] 3.71 10*3/uL Normal 1.45-7.50 [facility] Comment on above: Order Comment: Speci men Type: BLOOD SPECIMEN Ordering Facility: [facility] Address: [address] [place] [address] Performed By: #### 5 7021-8 #### [facility] CLIA [id number] [address] [place] [address] [place] Neutrophils/100 WBC (Bld) 61.2 % Normal [facility] Comment on above: Order Comment: Speci men Type: BLOOD SPECIMEN Ordering Facility: [facility] Address: [address] [place] [address] Performed By: #### 5 7021-8 #### [facility] CLIA [id number] [address] [place] [address] [place] Nucleated RBC (Bld) [#/Vol] 10*3/uL Normal <0.01 [facility] Comment on above: Order Comment: Speci men Type: BLOOD SPECIMEN Ordering Facility: [facility] Address: [address] [place] [address] Performed By: #### 5 7021-8 #### [facility] CLIA [id number] [address] [place] [address] [place] Nucleated RBC/100 WBC (Bld) [Ratio] 0.0 /100 WBC Normal [facility] Comment on above: Order Comment: Speci men Type: BLOOD SPECIMEN Ordering Facility: [facility] Address: [address] [place] [address] Performed By: #### 5 7021-8 #### [facility] CLIA [id number] [address] [place] [address] [place] Platelet mean volume (Bld) [Entitic vol] 11.2 fL Normal 9.0-12.7 [facility] Comment on above: Order Comment: Speci men Type: BLOOD SPECIMEN Ordering Facility: [facility] Address: [address] [place] [address] Performed By: #### 5 7021-8 #### [facility] CLIA [id number] [address] [place] [address] [place] Platelets (Bld) [#/Vol] 165 10*3/uL Normal 150-400 [facility] Comment on above: Order Comment: Speci men Type: BLOOD SPECIMEN Ordering Facility: [facility] Address: [address] [place] [address] Performed By: #### 5 7021-8 #### [facility] CLIA [id number] [address] [place] [address] [place] RBC (Bld) [#/Vol] 4.45 10*6/uL Normal 4.20-6.00 [facility] Comment on above: Order Comment: Speci men Type: BLOOD SPECIMEN Ordering Facility: [facility] Address: [address] [place] [address] Performed By: #### 5 7021-8 #### [facility] CLIA [id number] [address] [place] [address] [place] WBC (Bld) [#/Vol] 6.06 10*3/uL Normal 3.70-11.00 [facility] Comment on above: Order Comment: Speci men Type: BLOOD SPECIMEN Ordering Facility: [facility] Address: [address] [place] [address] Performed By: #### 5 7021-8 #### [facility] CLIA [id number] [address] [place] [address] [place] Comprehensive metabolic 2000 panelon 03-31-2025 Albumin [Mass/Vol] 4.5 g/dL Normal 3.9-4.9 [facility] Comment on above: Order Comment: Speci men Type: BLOOD SPECIMEN Ordering Facility: [facility] Address: [address] [place] [address] Performed By: #### 2 4323-8 #### [facility] CLIA [id number] [address] [place] [address] [place] ALP [Catalytic activity/Vol] 54 U/L Normal 38-113 [facility] Comment on above: Order Comment: Speci men Type: BLOOD SPECIMEN Ordering Facility: [facility] Address: [address] [place] [address] Performed By: #### 2 4323-8 #### [facility] CLIA [id number] [address] [place] [address] [place] ALT [Catalytic activity/Vol] 24 U/L Normal 10-54 [facility] Comment on above: Order Comment: Speci men Type: BLOOD SPECIMEN Ordering Facility: [facility] Address: [address] [place] [address] Performed By: #### 2 4323-8 #### [facility] CLIA [id number] [address] [place] [address] [place] Anion gap [Moles/Vol] 12 mmol/L Normal 8-15 [facility] Comment on above: Order Comment: Speci men Type: BLOOD SPECIMEN Ordering Facility: [facility] Address: [address] [place] [address] Performed By: #### 2 4323-8 #### [facility] CLIA [id number] [address] [place] [address] [place] AST [Catalytic activity/Vol] 20 U/L Normal 14-40 [facility] Comment on above: Order Comment: Speci men Type: BLOOD SPECIMEN Ordering Facility: [facility] Address: [address] [place] [address] Performed By: #### 2 4323-8 #### [facility] CLIA [id number] [address] [place] [address] [place] Bilirubin [Mass/Vol] 0.7 mg/dL Normal 0.2-1.3 [facility] Comment on above: Order Comment: Speci men Type: BLOOD SPECIMEN Ordering Facility: [facility] Address: [address] [place] [address] Performed By: #### 2 4323-8 #### [facility] CLIA [id number] [address] [place] [address] [place] Calcium [Mass/Vol] 9.7 mg/dL Normal 8.5-10.2 [facility] Comment on above: Order Comment: Speci men Type: BLOOD SPECIMEN Ordering Facility: [facility] Address: [address] [place] [address] Performed By: #### 2 4323-8 #### [facility] CLIA [id number] [address] [place] [address] [place] Chloride [Moles/Vol] 104 mmol/L Normal 98-107 [facility] Comment on above: Order Comment: Speci men Type: BLOOD SPECIMEN Ordering Facility: [facility] Address: [address] [place] [address] Performed By: #### 2 4323-8 #### [facility] CLIA [id number] [address] [place] [address] [place] CO2 [Moles/Vol] 28 mmol/L Normal 22-30 [facility] Comment on above: Order Comment: Speci men Type: BLOOD SPECIMEN Ordering Facility: [facility] Address: [address] [place] [address] Performed By: #### 2 4323-8 #### [facility] CLIA [id number] [address] [place] [address] [place] Creatinine [Mass/Vol] 0.80 mg/dL Normal 0.73-1.22 [facility] Comment on above: Order Comment: Speci men Type: BLOOD SPECIMEN Ordering Facility: [facility] Address: [address] [place] [address] Performed By: #### 2 4323-8 #### [facility] CLIA [id number] [address] [place] [address] [place] eGFRcr SerPlBld CKD-EPI 2020 93 mL/min/1.73m??? Normal >=60 [facility] Comment on above: Order Comment: Speci men Type: BLOOD SPECIMEN Ordering Facility: [facility] Address: [address] [place] [address] Result Comment: Nadya mated Glomerular Filtration Rate (eGFR) is calculated using the 2020 CKD-EPI creatinine equation. This equation utilizes serum creatinine, sex, and age as parameters. The creatinine assay has traceable calibration to isotope dilution-mass spectrometry. Refer to KDIGO guidelines for clinical interpretation. In patients with unstable renal function, e.g. those with acute kidney injury, the eGFR may not accurately reflect actual GFR. Performed By: #### 2 4323-8 #### [facility] CLIA [id number] [address] [place] [address] [place] Glucose [Mass/Vol] 128 mg/dL High 74-99 [facility] Comment on above: Order Comment: Agnes olivas Type: BLOOD SPECIMEN Ordering Facility: [facility] Address: [address] [place] [address] Result Comment: The [place] Diabetes [employer] (ADA) provides guidance for cutoff values for fasting glucose and random glucose. The ADA defines fasting as no caloric intake for at least 8 hours. Fasting plasma glucose results between 100 to 125 mg/dL indicate increased risk for diabetes (prediabetes). Fasting plasma glucose results greater than or equal to 126 mg/dL meet the criteria for diagnosis of diabetes. In the absence of unequivocal hyperglycemia, results should be confirmed by repeat testing. In a patient with classic symptoms of hyperglycemia or hyperglycemic crisis, random plasma glucose results greater than or equal to 200 mg/dL meet the criteria for diagnosis of diabetes. Reference: Standards of Medical Care in Diabetes 2016, [place] [employer]. Diabetes Care. 2016.39(Suppl 1). Performed By: #### 2 4323-8 #### [facility] CLIA [id number] [address] [place] [address] [place] Potassium [Moles/Vol] 3.9 mmol/L Normal 3.7-5.1 [facility] Comment on above: Order Comment: Agnes olivas Type: BLOOD SPECIMEN Ordering Facility: [facility] Address: [address] [place] [address] Performed By: #### 2 4323-8 #### [facility] CLIA [id number] [address] [place] [address] [place] Protein [Mass/Vol] 6.9 g/dL Normal 6.3-8.0 [facility] Comment on above: Order Comment: Agnes olivas Type: BLOOD SPECIMEN Ordering Facility: [facility] Address: [address] [place] [address] Performed By: #### 2 4323-8 #### [facility] CLIA [id number] [address] [place] [address] [place] Sodium [Moles/Vol] 144 mmol/L Normal 136-144 [facility] Comment on above: Order Comment: Agnes olivas Type: BLOOD SPECIMEN Ordering Facility: [facility] Address: [address] [place] [address] Performed By: #### 2 4323-8 #### [facility] CLIA [id number] [address] [place] [address] [place] Urea nitrogen [Mass/Vol] 15 mg/dL Normal 9-24 [facility] Comment on above: Order Comment: Agnes olivas Type: BLOOD SPECIMEN Ordering Facility: [facility] Address: [address] [place] [address] Performed By: #### 2 4323-8 #### [facility] CLIA [id number] [address] [place] [address] [place] HbA1c (Bld)on 03-31-2025 Average glucose Estimated from glycated hemoglobin (Bld) [Mass/Vol] 134 mg/dL Normal [facility] Comment on above: Order Comment: Agnes olivas Type: BLOOD SPECIMEN Ordering Facility: [facility] Address: [address] [place] [address] Result Comment: eAG: (Estimated average glucose) is a calculated value from HgbA1c and is financial representative of the average blood glucose level in the last 2-3 month period. Performed By: #### 5 5454-3 #### [facility] CLIA [id number] [address] [place] [address] [place] HbA1c (Bld) [Mass fraction] 6.3 % High 4.3-5.6 [facility] Comment on above: Order Comment: Agnes olivas Type: BLOOD SPECIMEN Ordering Facility: [facility] Address: [address] [place] [address] Result Comment: [place] Diabetes Association guidelines indicate that patients with HgbA1c in the range 5.7-6.4% are at increased risk for development of diabetes, and intervention by lifestyle modification may be beneficial. HgbA1c greater or equal to 6.5% is considered diagnostic of diabetes. 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 Chief Complaint Patient presents with: F/U 6 months HPI Jose D is a 74 year old male who presents for follow-up for hypertension. They are here today for a recheck of blood pressure. Blood pressure appears to be stable. Denies any symptoms referable to elevated blood pressure. No reports of headache, chest pain, palpitations, dyspnea and peripheral edema. Tolerating medications well. Jose D Roman is a 74 year old male here today for a check up on his diabetes. He is compliant on taking his medications :Yes No reports of low blood sugar reaction. No reports of urinating, eating, and drinking. Most recent HbA1c tests were: Lab Results Component Value Date HBA1C 7.6 (H) 09/26/2024 HBA1C 8.0 (H) 03/28/2024 HBA1C 8.0 (H) 09/29/2023 Jose D Roman is an 74 year old male is being seen today for a check on hyperlipidemia. Cholesterol, Total (mg/dL) Date Value 09/26/2024 129 09/29/2023 139 07/19/2021 140 12/31/2020 153 HDL Cholesterol (mg/dL) Date Value 09/26/2024 37 09/29/2023 47 07/19/2021 41 12/31/2020 41 LDL Cholesterol (mg/dL) Date Value 09/26/2024 64 09/29/2023 81 07/19/2021 75 12/31/2020 87 Triglyceride (mg/dL) Date Value 09/26/2024 138 09/29/2023 54 07/19/2021 118 12/31/2020 126 His medications were reviewed today and his list is now up to date. Medications Current Outpatient Medications Medication Sig amLODIPine (NORVASC) 10 mg tablet Take 1 tablet by mouth once daily. lisinopril (ZESTRIL) 40 mg tablet Take 1 tablet by mouth once daily. carvedilol (COREG) 6.25 mg tablet Take 1 tablet by mouth two times a day. atorvastatin (LIPITOR) 20 mg tablet Take 1 tablet by mouth once daily. metFORMIN ER (GLUCOPHAGE XR) 500 mg 24 hr tablet Take 1 tablet by mouth three times daily before meals. ibuprofen (MOTRIN) 200 mg tablet May take 2 to 4 pills up to 4 times daily (max 2400 mg per day) cinnamon bark(CINNAMON 500 MG CAP) Take one(1) tablet daily. aspirin(ECOTRIN LOW STRENGTH 81 MG TAB) Take one(1) tablet daily. ascorbic acid(VITAMIN C 500 MG TAB) Take one(1) tablet daily. No current facility-administered medications for this visit. 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 Respiratory: Negative. Cardiovascular: Negative. OBJECTIVE BP 128/60 Pulse 69 Wt 187 lb 2.7 oz (84.9kg) SpO2 96% Physical Exam Vitals and nursing note reviewed. Constitutional: General: He is awake. He is not in acute distress. Appearance: Normal appearance. He is well-developed and well-groomed. He is not ill-appearing, toxic-appearing or diaphoretic. HENT: Head: Normocephalic. Right Ear: External ear normal. Left Ear: External ear normal. Nose: Nose normal. Eyes: General: Vision grossly intact. Conjunctiva/sclera: Conjunctivae normal. Pupils: Pupils are equal, round, and reactive to light. Neck: Vascular: No JVD. Trachea: Trachea normal. Cardiovascular: Rate and Rhythm: Normal rate and regular rhythm. Pulses: Normal pulses. Heart sounds: Normal heart sounds. No murmur heard. Pulmonary: Effort: Pulmonary effort is normal. No accessory muscle usage, prolonged expiration or respiratory distress. Breath sounds: Normal breath sounds. Musculoskeletal: Cervical back: Neck supple. Skin: General: Skin is warm and dry. Capillary Refill: Capillary refill takes less than 2 seconds. Neurological: General: No focal deficit present. Mental Status: He is alert and oriented to person, place, and time. Mental status is (more content not included)... Normal [facility] CBC panel Auto (Bld)on 09-26 Erythrocyte distribution width (RBC) [Ratio] 12.4 % Normal 11.5-15.0 [facility] Comment on above: Order Comment: Agnes olivas Type: BLOOD SPECIMEN Ordering Facility: [facility] Address: [address] [place] [address] Performed By: #### 5 8410-2 #### [facility] CLIA [id number] [address] [place] [address] [place] [address] [place] Hematocrit (Bld) [Volume fraction] 43.3 % Normal 39.0-51.0 [facility] Comment on above: Order Comment: Agnes olivas Type: BLOOD SPECIMEN Ordering Facility: [facility] Address: [address] [place] [address] Performed By: #### 5 8410-2 #### [facility] CLIA [id number] [address] [place] [address] [place] Hemoglobin (Bld) [Mass/Vol] 14.2 g/dL Normal 13.0-17.0 [facility] Comment on above: Order Comment: Speci men Type: BLOOD SPECIMEN Ordering Facility: [facility] Address: [address] [place] [address] Performed By: #### 5 8410-2 #### [facility] CLIA [id number] [address] [place] [address] [place] MCH (RBC) [Entitic mass] 31.3 pg Normal 26.0-34.0 [facility] Comment on above: Order Comment: Speci men Type: BLOOD SPECIMEN Ordering Facility: [facility] Address: [address] [place] [address] Performed By: #### 5 8410-2 #### [facility] CLIA [id number] [address] [place] [address] [place] MCHC (RBC) [Mass/Vol] 32.8 g/dL Normal 30.5-36.0 [facility] Comment on above: Order Comment: Speci men Type: BLOOD SPECIMEN Ordering Facility: [facility] Address: [address] [place] [address] Performed By: #### 5 8410-2 #### [facility] CLIA [id number] [address] [place] [address] [place] MCV (RBC) [Entitic vol] 95.6 fL Normal 80.0-100.0 [facility] Comment on above: Order Comment: Speci men Type: BLOOD SPECIMEN Ordering Facility: [facility] Address: [address] [place] [address] Performed By: #### 5 8410-2 #### [facility] CLIA [id number] [address] [place] [address] [place] Nucleated RBC (Bld) [#/Vol] 10*3/uL Normal <0.01 [facility] Comment on above: Order Comment: Speci men Type: BLOOD SPECIMEN Ordering Facility: [facility] Address: [address] [place] [address] Performed By: #### 5 8410-2 #### [facility] CLIA [id number] [address] [place] [address] [place] Platelet mean volume (Bld) [Entitic vol] 11.6 fL Normal 9.0-12.7 [facility] Comment on above: Order Comment: Speci men Type: BLOOD SPECIMEN Ordering Facility: [facility] Address: [address] [place] [address] Performed By: #### 5 8410-2 #### [facility] CLIA [id number] [address] [place] [address] [place] Platelets (Bld) [#/Vol] 170 10*3/uL Normal 150-400 [facility] Comment on above: Order Comment: Speci men Type: BLOOD SPECIMEN Ordering Facility: [facility] Address: [address] [place] [address] Performed By: #### 5 8410-2 #### [facility] CLIA [id number] [address] [place] [address] [place] RBC (Bld) [#/Vol] 4.53 10*6/uL Normal 4.20-6.00 [facility] Comment on above: Order Comment: Speci men Type: BLOOD SPECIMEN Ordering Facility: [facility] Address: [address] [place] [address] Performed By: #### 5 8410-2 #### [facility] CLIA [id number] [address] [place] [address] [place] WBC (Bld) [#/Vol] 6.31 10*3/uL Normal 3.70-11.00 [facility] Comment on above: Order Comment: Speci men Type: BLOOD SPECIMEN Ordering Facility: [facility] Address: [address] [place] [address] Performed By: #### 5 8410-2 #### [facility] CLIA [id number] [address] [place] [address] [place] Comprehensive metabolic 2000 panelon 09-26-2024 Albumin [Mass/Vol] 4.5 g/dL Normal 3.9-4.9 [facility] Comment on above: Order Comment: Speci men Type: BLOOD SPECIMEN Ordering Facility: [facility] Address: [address] [place] [address] Performed By: #### 2 4331-1, 68827-2 #### [facility] CLIA [id number] [address] [place] [address] [place] ALP [Catalytic activity/Vol] 57 U/L Normal 38-113 [facility] Comment on above: Order Comment: Speci men Type: BLOOD SPECIMEN Ordering Facility: [facility] Address: [address] [place] [address] Performed By: #### 2 4331-1, 50637-6 #### [facility] CLIA [id number] [address] [place] [address] [place] ALT [Catalytic activity/Vol] 28 U/L Normal 10-54 [facility] Comment on above: Order Comment: Speci men Type: BLOOD SPECIMEN Ordering Facility: [facility] Address: [address] [place] [address] Performed By: #### 2 4331-1, 03601-6 #### [facility] CLIA [id number] [address] [place] [address] [place] Anion gap [Moles/Vol] 10 mmol/L Normal 8-15 [facility] Comment on above: Order Comment: Speci men Type: BLOOD SPECIMEN Ordering Facility: [facility] Address: [address] [place], [place] [address] Performed By: #### 2 4331-1, 79077-1 #### [facility] CLIA [id number] [address] [place] [address] [place] AST [Catalytic activity/Vol] 21 U/L Normal 14-40 [facility] Comment on above: Order Comment: Speci men Type: BLOOD SPECIMEN Ordering Facility: [facility] Address: [address] [place] [address] Performed By: #### 2 4331-1, 50947-4 #### [facility] CLIA [id number] [address] [place] [address] [place] Bilirubin [Mass/Vol] 0.7 mg/dL Normal 0.2-1.3 [facility] Comment on above: Order Comment: Speci men Type: BLOOD SPECIMEN Ordering Facility: [facility] Address: [address] [place] [address] Performed By: #### 2 4331-1, 71168-4 #### [facility] CLIA [id number] [address] [place] [address] [place] Calcium [Mass/Vol] 9.7 mg/dL Normal 8.5-10.2 [facility] Comment on above: Order Comment: Speci men Type: BLOOD SPECIMEN Ordering Facility: [facility] Address: [address] [place] [address] Performed By: #### 2 4331-1, #### [facility] CLIA [id number] [address] [place] [address] [place] Chloride [Moles/Vol] 104 mmol/L Normal 98-107 [facility] Comment on above: Order Comment: Speci men Type: BLOOD SPECIMEN Ordering Facility: [facility] Address: [address] [place], [place] [address] Performed By: #### 2 4331-1, 34621-9 #### [facility] CLIA [id number] [address] [place], [place] [address] [place] CO2 [Moles/Vol] 28 mmol/L Normal 22-30 [facility] Comment on above: Order Comment: Speci men Type: BLOOD SPECIMEN Ordering Facility: [facility] Address: [address] [place] [address] Performed By: #### 2 4331-1, 37819-2 #### [facility] CLIA [id number] [address] [place] [address] [place] Creatinine [Mass/Vol] 0.81 mg/dL Normal 0.73-1.22 [facility] Comment on above: Order Comment: Speci men Type: BLOOD SPECIMEN Ordering Facility: [facility] Address: [address] [place] [address] Performed By: #### 2 4331-1, 98443-1 #### [facility] CLIA [id number] [address] [place] [address] [place] Creatinine and Glomerular filtration rate.predicted panel (S/P/Bld) 93 mL/min/1.73m??? Normal >=60 [facility] Comment on above: Order Comment: Speci men Type: BLOOD SPECIMEN Ordering Facility: [facility] Address: [address] [place] [address] Result Comment: Nadya mated Glomerular Filtration Rate (eGFR) is calculated using the 2020 CKD-EPI creatinine equation. This equation utilizes serum creatinine, sex, and age as parameters. The creatinine assay has traceable calibration to isotope dilution-mass spectrometry. Refer to KDIGO guidelines for clinical interpretation. In patients with unstable renal function, e.g. those with acute kidney injury, the eGFR may not accurately reflect actual GFR. Performed By: #### 2 4331-1, 04158-6 #### [facility] CLIA [id number] [address] [place], [place] [address] [place] Glucose [Mass/Vol] 163 mg/dL High 74-99 [facility] Comment on above: Order Comment: Agnes olivas Type: BLOOD SPECIMEN Ordering Facility: [facility] Address: [address] [place] [address] Result Comment: The [place] Diabetes [employer] (ADA) provides guidance for cutoff values for fasting glucose and random glucose. The ADA defines fasting as no caloric intake for at least 8 hours. Fasting plasma glucose results between 100 to 125 mg/dL indicate increased risk for diabetes (prediabetes). Fasting plasma glucose results greater than or equal to 126 mg/dL meet the criteria for diagnosis of diabetes. In the absence of unequivocal hyperglycemia, results should be confirmed by repeat testing. In a patient with classic symptoms of hyperglycemia or hyperglycemic crisis, random plasma glucose results greater than or equal to 200 mg/dL meet the criteria for diagnosis of diabetes. Reference: Standards of Medical Care in Diabetes 2016, [place] [employer]. Diabetes Care. 2016.39(Suppl 1). Performed By: #### 2 4331-1, 07478-9 #### [facility] CLIA [id number] [address] [place] [address] [place] Potassium [Moles/Vol] 4.1 mmol/L Normal 3.7-5.1 [facility] Comment on above: Order Comment: Agnes olivas Type: BLOOD SPECIMEN Ordering Facility: [facility] Address: [address] [place] [address] Performed By: #### 2 4331-1, 47668-4 #### [facility] CLIA [id number] [address] [place] [address] [place] Protein [Mass/Vol] 6.7 g/dL Normal 6.3-8.0 [facility] Comment on above: Order Comment: Agnes olivas Type: BLOOD SPECIMEN Ordering Facility: [facility] Address: [address] [place] [address] Performed By: #### 2 4331-1, 21362-1 #### [facility] CLIA [id number] [address] [place] [address] [place] Sodium [Moles/Vol] 142 mmol/L Normal 136-144 [facility] Comment on above: Order Comment: Agnes men Type: BLOOD SPECIMEN Ordering Facility: [facility] Address: [address] [place] [address] Performed By: #### 2 4331-1, 96494-6 #### [facility] CLIA [id number] [address] [place] [address] [place] Urea nitrogen [Mass/Vol] 13 mg/dL Normal 9-24 [facility] Comment on above: Order Comment: Gregi men Type: BLOOD SPECIMEN Ordering Facility: [facility] Address: [address] [place] [address] Performed By: #### 2 4331-1, 04678-8 #### [facility] CLIA [id number] [address] [place] [address] [place] HbA1c (Bld)on 09-26-2024 Average glucose Estimated from glycated hemoglobin (Bld) [Mass/Vol] 171 mg/dL Normal [facility] Comment on above: Order Comment: Agnes men Type: BLOOD SPECIMEN Ordering Facility: [facility] Address: [address] [place] [address] Result Comment: eAG: (Estimated average glucose) is a calculated value from HgbA1c and is financial representative of the average blood glucose level in the last 2-3 month period. Performed By: #### 5 5454-3 #### [facility] CLIA [id number] [address] [place] [address] [place] HbA1c (Bld) [Mass fraction] 7.6 % High 4.3-5.6 [facility] Comment on above: Order Comment: Agnes brendon Type: BLOOD SPECIMEN Ordering Facility: [facility] Address: [address] [place] [address] Result Comment: [place] Diabetes Association guidelines indicate that patients with HgbA1c in the range 5.7-6.4% are at increased risk for development of diabetes, and intervention by lifestyle modification may be beneficial. HgbA1c greater or equal to 6.5% is considered diagnostic of diabetes. Performed By: #### 5 5454-3 #### [facility] CLIA [id number] [address] [place] [address] [place] Lipid 1996 panelon 5 Cholesterol [Mass/Vol] 129 mg/dL Normal <200 [facility] Comment on above: Order Comment: Speci men Type: BLOOD SPECIMEN Ordering Facility: [facility] Address: [address] [place] [address] Result Comment: <200 mg/dL, Desirable 200-239 mg/dL, Borderline high >239 mg/dL, High Performed By: #### 2 4331-1, 57439-6 #### [facility] CLIA [id number] [address] [place] [address] [place] Cholesterol in HDL [Mass/Vol] 37 mg/dL Low >39 [facility] Comment on above: Order Comment: Speci men Type: BLOOD SPECIMEN Ordering Facility: [facility] Address: [address] [place] [address] Result Comment: 40-5 9 mg/dL, Acceptable >59 mg/dL, High: Negative risk factor for coronary heart disease <40 mg/dL, Low: Positive risk factor for coronary heart disease Performed By: #### 2 4331-1, 88902-6 #### [facility] CLIA [id number] [address] [place] [address] [place] Cholesterol in LDL [Mass/Vol] 64 mg/dL Normal <100 [facility] Comment on above: Order Comment: Speci men Type: BLOOD SPECIMEN Ordering Facility: [facility] Address: [address] [place] [address] Result Comment: <100 mg/dL, Optimal 100-129 mg/dL, Near optimal/above optimal 130-159 mg/dL, Borderline high 160-189 mg/dL, High >189 mg/dL, Very high Secondary prevention optimal LDL Cholesterol levels are recommended to be < 70 mg/dL Performed By: #### 2 4331-1, 00178-0 #### [facility] CLIA [id number] [address] [place] [address] [place] Cholesterol in LDL/Cholesterol in HDL [Mass ratio] 1.73 {ratio} Normal <2.54 [facility] Comment on above: Order Comment: Agnes olivas Type: BLOOD SPECIMEN Ordering Facility: [facility] Address: [address] [place] [address] Result Comment: Refe rence: 1. National Cholesterol Education Program ATP III Guideline At-A-Glance Quick Desk Reference: National Heart, Lung, and Blood [place]. National Institutes of Health. 2001: NIH Publication No. 01-3305. 2. An International Atherosclerosis Society position paper: global recommendations for the management of dyslipidemia: executive summary, Atherosclerosis. 2014: 232(2):410-413. Performed By: #### 2 4331-1, 56885-8 #### [facility] CLIA [id number] [address] [place] [address] [place] Cholesterol in VLDL [Mass/Vol] 28 mg/dL Normal <30 [facility] Comment on above: Order Comment: Agnes olivas Type: BLOOD SPECIMEN Ordering Facility: [facility] Address: [address] [place] [address] Performed By: #### 2 4331-1, 46029-5 #### [facility] CLIA [id number] [address] [place] [address] [place] Cholesterol non HDL [Mass/Vol] 92 mg/dL Normal <130 [facility] Comment on above: Order Comment: Agnes olivas Type: BLOOD SPECIMEN Ordering Facility: [facility] Address: [address] [place] [address] Result Comment: <130 mg/dL, Optimal 130-159 mg/dL, Near optimal/above optimal 160-189 mg/dL, Borderline high 190-219 mg/dL, High >219 mg/dL, Very high Secondary prevention optimal non HDL Cholesterol levels are recommended to be <100 mg/dL Performed By: #### 2 4331-1, 92207-5 #### [facility] CLIA [id number] [address] [place] [address] [place] Cholesterol.total/Cho lesterol in HDL [Mass ratio] 3.49 {ratio} Normal <5.10 [facility] Comment on above: Order Comment: Speci men Type: BLOOD SPECIMEN Ordering Facility: [facility] Address: [address] [place] [address] Performed By: #### 2 4331-1, 40570-2 #### [facility] CLIA [id number] [address] [place] [address] [place] FASTING TIME 12 hrs Normal [facility] Comment on above: Order Comment: Speci men Type: BLOOD SPECIMEN Ordering Facility: [facility] Address: [address] [place] [address] Performed By: #### 2 4331-1, 15117-9 #### [facility] CLIA [id number] [address] [place] [address] [place] Triglyceride [Mass/Vol] 138 mg/dL Normal <150 [facility] Comment on above: Order Comment: Speci men Type: BLOOD SPECIMEN Ordering Facility: [facility] Address: [address] [place] [address] Result Comment: <150 mg/dL, Normal 150-199 mg/dL, Borderline high 200-499 mg/dL, High >499 mg/dL, Very high Performed By: #### 2 4331-1, 64156-8 #### [facility] CLIA [id number] [address] [place] [address] [place] STREP A MOLECULAR (POC)on Procedural Control Valid [facility] Strep A (POCT) Negative Negative [facility] Absolute lymphocyte countOrd ered By: Gabe Arevalo on 04-07-2023 Lymphocytes Auto (Unsp spec) [#/Vol] 1.44 10*3/uL 0.83-4.51 [facility] Basophil percentageOrdered B y: Gabe Arevalo on 04-07-2023 Basophils/100 WBC (Bld) 0.2 % 0-1 [facility] Chloride [Moles/Vol] 106 mmol/L 98-107 [facility] Eosinophils/100 WBC (Bld) 2.0 % 0-5 [facility] Glucose [Mass/Vol] 246 mg/dL 74-106 [facility] Comment on above: Glucose result great er than or equal to 200 mg/dLsuggests DIABETES MELLITUS per A.D.A. criteria. Neutrophils (Bld) [#/Vol] 7.2 10*3/uL 2.0-7.7 [facility] Neutrophils/100 WBC (Bld) 77.3 % 47-70 [facility] Potassium [Moles/Vol] 3.9 mmol/L 3.5-5.[address] [facility] Sodium [Moles/Vol] 142 mmol/L 136-145 [facility] WBC (Bld) [#/Vol] 9.4 10*3/uL 4.4-11.0 [facility] Basophil percentage 0-5 SEEN /hpf 0-5 [facility] Bilirubin Test strip Ql (U)O rdered By: Gabe Arevalo on 04-07-2023 Bilirubin Ql (U) Negative Negative [facility] Blood erythrocytes count (nu mber/volume)Ordered By: Gabe Arevalo on 04-07-2023 RBC (Bld) [#/Vol] 4.28 10*6/uL 4.6-6.2 [facility] Blood hemoglobin measurement (mass/volume)Ordered By: Gabe Arevalo on 04-07-2023 Hemoglobin (Bld) [Mass/Vol] 13.4 g/dL 13.0-16.5 [facility] Blood lymphocytes/100 leukoc ytesOrdered By: Gabe Arevalo on 04-07-2023 Lymphocytes/100 WBC (Bld) 15.4 % 19-41 [facility] Blood monocytes/100 leukocyt esOrdered By: Gabe Arevalo on 04-07-2023 Monocytes/100 WBC (Bld) 4.8 % 0-10 [facility] Blood platelet mean volumeOr dered By: Gabe Arevalo on 04-07-2023 Platelet mean volume (Bld) [Entitic vol] 11.3 fL 6.2-12.0 [facility] Determination of erythrocyte mean corpuscular volume (MCV)Ordered By: Gabe Arevalo on 04-07-2023 MCV (RBC) [Entitic vol] 93.0 fL 80-94 [facility] Hematocrit Auto (Bld) [Volum e fraction]Ordered By: Gabe Arevalo on 04-07-2023 Hematocrit (Bld) [Volume fraction] 39.8 % 40-54 [facility] Ketones Test strip Ql (U)Ord ered By: Gabe Arevalo on 04-07-2023 Ketones Ql (U) 15 mg/dl Negative [facility] Laboratory - Chemistry and C hemistry - challengeOrdered By: Gabe Arevalo on 04-07-2023 CO2 [Moles/Vol] 28.0 mmol/L 21.0-32.0 [facility] Urea nitrogen/Creatinine [Mass ratio] 26.6 mg/mg 10-20 [facility] Laboratory - Hematology and Cell countsOrdered By: Gabe Arevalo on 04-07-2023 Erythrocyte distribution width (RBC) [Entitic vol] 42.1 fL 35.1-43.9 [facility] Erythrocyte distribution width (RBC) [Ratio] 12.3 % 11.6-14.6 [facility] Immature granulocytes/100 WBC (Bld) 0.300 % 0.0-0.9 [facility] Comment on above: IG% - Immature Granu locytes (promyelocytes, myelocytes and metamyelocytes) > 1% indicates that a LEFT SHIFT is Present. MCH (RBC) [Entitic mass] 31.3 pg 27.0-32.0 [facility] Nucleated RBC/100 WBC (Bld) [Ratio] 0 % 0-5 [facility] MCHC Auto (RBC) [Mass/Vol]Or dered By: Gabe Arevalo on 04-07-2023 MCHC (RBC) [Mass/Vol] 33.7 g/dL 32-[address] [facility] Mucus LM Ql (Urine sed)Order ed By: Gabe Arevalo on 04-07-2023 Mucus Ql (Urine sed) 0 SEEN /hpf [facility] Nitrite Test strip Ql (U)Ord ered By: Gabe Arevalo on 04-07-2023 Nitrite Ql (U) Negative Negative [facility] No Panel InformationOrdered By: Gabe Arevalo on 04-07-2023 Estimated Creatinine Clearance Calc 66.41 ml/min [facility] Estimated GFR (MDRD) Amer 101 mL/min >60 [facility] Comment on above: GFR Calc Estimated GFR (MDRD) Non-Af Amer 84 mL/min >60 [facility] Comment on above: Non- GFR Calc Platelets bldOrdered By: Varun Arevalo on 04-07-2023 Platelets (Bld) [#/Vol] 140 10*3/uL 150-450 [facility] Protein Test strip Ql (U)Ord ered By: Gabe Arevalo on 04-07-2023 Protein Ql (U) 30 mg/dl Negative [facility] Serum or plasma calcium kimberly urement (mass/volume)Ordered By: Gabe Arevalo on 04-07-2023 Calcium [Mass/Vol] 9.2 mg/dL 8.5-10.1 [facility] Serum or plasma creatinine m easurement (mass/volume)Ordered By: Gabe Arevalo on 04-07-2023 Creatinine [Mass/Vol] 0.94 mg/dL 0.70-1.[address] [facility] Comment on above: The validity of the calculated GFR & GFRAA in patients over 70 years has not been determined. Clinical correlation is essential. Serum or plasma urea nitroge n measurement (mass/volume)Ordered By: Gabe Arevalo on 04-07-2023 Urea nitrogen [Mass/Vol] 25 mg/dL 7-18 [facility] Squamous epithelial cells de tection in urine sediment by light microscopyOrdered By: Gabe Arevalo on 04-07-2023 Epithelial cells.squamous LM Ql (Urine sed) 0 SEEN /hpf 0-5 [facility] Thin prep Papanicolaou smear with manual screeningOrdered By: Gabe Arevalo on 04-07-2023 Thin prep Papanicolaou smear with manual screening 8 5-15 [facility] Urine blood detectionOrdered By: Gabe Arevalo on 04-07-2023 RBC Ql (U) 250 /ul Negative [facility] RBC Ql (U) > 100 SEEN /hpf 0-5 [facility] Urine clarityOrdered By: Varun Arevalo on 04-07-2023 Clarity (U) Sl. Cloudy Clear [facility] Urine color determinationOrd ered By: Gabe Arevalo on 04-07-2023 Color (U) Yellow Yellow [facility] Urine glucose detectionOrder ed By: Gabe Arevalo on 04-07-2023 Glucose Ql (U) 100 mg/dl Normal [facility] Urine leukocyte esterase det ection by dipstickOrdered By: Gabe Arevalo on 04-07-2023 Leukocyte esterase Test strip Ql (U) Negative Negative [facility] Urine pHOrdered By: Gabe lopez on 04-07-2023 pH (U) 8.0 [pH] 5.0 - 8.0 [facility] Urine sediment bacteria coun t by microscopy (number/high power field)Ordered By: Gabe Arevalo on 04-07-2023 Bacteria LM.HPF (Urine sed) [#/Area] 0 /[HPF] None Seen [facility] Urine specific gravity measu rementOrdered By: Gabe Arevalo on 04-07-2023 Specific gravity (U) [Rel density] 1.015 1.002-1.03 0 [facility] Urobilinogen Auto test strip Ql (U)Ordered By: Gabe Arevalo on 04-07-2023 Urobilinogen Ql (U) Normal mg/dl Normal [facility] ALBUMIN/CREAT RATIO RND URon 03-27-2023 Albumin DL <= 20 mg/L (U) [Mass/Vol] [facility] Albumin/Creatinine (U) [Mass ratio] <30 mg/g [facility] Creatinine (U) [Mass/Vol] 133.4 mg/dL 20.0 - 300.0 mg/dL [facility] Ankle 2 Viewson 06-08-[address] [facility] [address] [place] [address] Ankle 2 Views MR#: [id number] Acct: [id number] Name: JOSE D ROMAN Jr. Rep #: [id number] : 1950 M 71 From: Kimani Lacey MD PCP: Dr. India Sams MD Status: [facility] Study: Ankle 2 Views Date of Exam: 06/08/22 Exam# [id number] Ordering Dr: León Cook DO STUDY: X-RAY - LEFT ANKLE REASON FOR EXAM: Male, 71 years old. Intraoperative digital documentation views of ORIF of ankle. TECHNIQUE: 10 intraoperative digital documentation view(s) of the ankle. COMPARISON: None. FINDINGS: 10 intraoperative digital documentation views show plate and screw fixation of the fibula and syndesmotic fusion. RAD/Ankle 2 Views IMPRESSION: Intraoperative digital documentation views. Electronically Signed: Kimani Lacey, at 11:43 EST , CC: Dr. India Sams MD; Dr. León Cook DO [employer]: Signed Normal [facility] Bedside Glucoseon 06-08-2022 FINGERSTICK GLU 166 mg/dL High 74-106 [facility] Comment on above: Result Comment: VERONICA GEMENT OF PATIENT CARE PER NURSING PROTOCOL Performed By: #### L 501.080 #### [facility] [address] [facility] [place], [address] FINGERSTICK GLU 193 mg/dL High 74-106 [facility] Comment on above: Result Comment: VERONICA GEMENT OF PATIENT CARE PER NURSING PROTOCOL Performed By: #### L 501.080 #### [facility] [address] [place], [address] Discharge Instructionon 05-19 Discharge Instruction [facility] Medical Records Department [address] [place] [address] Instructions for Home/Discharge Instructions 06/08/222049 MR#: [id number] Acct: [id number] Name: JOSE D ROMAN Jr. Rep #: [id number] : 1950 71 From: León Coko DO PCP: Dr. India Sams MD Status:[facility] Discharge Instructions Follow Up Care Test Results: Test results from this visit will be discussed in further detail at your follow-up appointment, if applicable. Discharge Plan Admission Attending Provider: León Cook Primary Care Provider: India Sams Discharge Orders/Prescriptions Prescriptions: No Action metformin 500 mg tablet extended release 24 hr 500 mg PO TID atorvastatin 20 MG tablet 20 mg PO QHS amlodipine 5 MG tablet 5 mg PO DAILY ascorbic acid (vitamin C) 500 MG tablet 500 mg PO DAILY@0800 lisinopril 30 MG tablet 40 mg PO DAILY aspirin 81 MG tablet,chewable 81 mg PO DAILY@0800 cinnamon bark 500 MG capsule 500 mg PO DAILY carvedilol 6.25 mg Tablet 6.25 mg PO BID Rx Instructions: must administer with a meal/food Referrals / Follow Up: India Sams MD [Primary Care Provider] - Disposition Disposition (needs filled in before D/C Order can be placed): Home, Self Care 06/08/222049 León Cook DO CC: Dr. India Sams MD Signed Normal [facility] Glucose Glucometer (BldC) [M ass/Vol]on 06-08-2022 Glucose [Mass/Vol] 166 mg/dL 74-106 [facility] Work Phone: Comment on above: MANAGEMENT OF PATIEN T CARE PER NURSING PROTOCOL Operative Reporton Operative Report [facility] Medical Records Department [address] [place] [address] Operative Report 06/08/222049 MR#: [id number] Acct: [id number] Name: JOSE D ROMAN Rep #: [id number] : 1950 71 From: León Cook DO PCP: Dr. India Sams MD Status:[facility] Location: [facility] Report of Operation Date of Procedure: 06/08/22 Description of Surgical Findings:: Description of Surgical Findings:: Preoperative diagnosis: 1. Left ankle syndesmosis rupture/Maisonneuve fracture Postoperative diagnosis: 1. Left ankle syndesmosis rupture/Maisonneuve fracture Procedure: Open reduction internal fixation left ankle syndesmosis Primary Surgeon: León Cook DO Miter Operator: Cammy Nagy PA-C Anesthesia: General with popliteal block Pipe Line Walker: Deniz De La Rosa CRNA Complications: None apparent Estimated blood loss: 10 cc IV fluids: Per anesthesia record Intraoperative medications: 2 g Ancef, 10 cc 0.25% medial ankle periosteal block Urine output: None recorded Specimen: None Packing/drains: None Implants: Arthrex tight rope x2 with Arthrex 2 hole syndesmosis tubular plate Preoperative indications: This is a 71-year-old male who sustained an injury to his left ankle approximately 2 weeks ago. X-rays revealed a proximal fibula fracture. He followed up in our offi ce and stress radiographs revealed medial clear space widening with concern for syndesmotic injury. Operative intervention in the form of left ankle syndesmosis open reduction internal fixation was reviewed with the patient. I discussed the risks, benefits, alternatives to procedure. Risks included but were not limited to bleeding, infection, loss of life or limb, persistent pain, persistent instability, stiffness, hardware removal or symptomatic hardware, posttraumatic arthritis, risk of anesthesia. Patient expressed understanding of these risks and wished to proceed with surgery. Description of procedure: Patient was identified in the preoperative holding area by name, medical record number, and date of . The operative extremity was marked. All questions were answered to patient satisfaction. Informed consent was confirmed. In the preoperative holding area, a popliteal block was administered by anesthesia staff for intraoperative and postoperative analgesia. At time of his procedure, patient was brought to the operative suite and positioned supine a standard operating table. General anesthesia was induced and laryngeal mask airway placed. After securing the tube, patient was positioned for surgery. A bump was placed under the patient's left hip and the left lower extreme was elevated on bath blankets. All bony prominences were well- padded. We then prepped and draped the right ankle in a normal, sterile orthopedic fashion. We then performed a timeout with all parties in attendance in agreement with the side, site, operation to be performed. No concerns were voiced and elected proceed. 2 g Ancef was administered by the incision by anesthesia staff. I first brought in fluoroscopy to perform stress radiography of the ankle. An external rotation, abduction stress test was applied to the right ankle and revealed medial clear space widening and increased tib-fib gapping. I then planned my incision overlying the syndesmosis. Skin was sharply incised with a 15 blade scalpel. Dissection was carried down to the level of the periosteum of the fibula. I opened the anterior compartment fascia to gain access to the syndesmosis. Injury to the syndesmotic ligaments was visualized. I placed a hemostat within the syndesmosis applying a translatory cotton test, which also demonstrated syndesmotic instability. I applied digital pressure over the lateral fibula to reduce the syndesmosis. I then drilled quad cortically for a Arthrex tight rope at the inferior portion of the syndesmosis and approximately 30 degree anterior angle in line with the cold springs syndesmosis. The 3.5 mm drill was then removed and the tight rope was passed through the vendor supplied 2 hole plate and subsequently through all 4 cortices. I then flipped the button and subsequently tightened the suture button device to maximum tension. Approximately 1 cm proximal, and additional quad cortical drill course was made parallel with the prior 1 and parallel with the tibial plafond. Again, the tight rope was passed, flipped, tightened, and tied. Sutures were cut. Fluoroscopic stress test was applied and syndesmosis appeared stable. Wound was copiously irrigated with normal saline. I anesthetized the medial ankle periosteum with 10 cc 0.25% plain bupivacaine. Dermis was reapproximated with 2-0 Vicryl suture. Horizontal mattress 3-0 nylon suture was used to reapproximate the skin. Sterile compression dressing applied as well as a well-padded posterior fiberglass splint was applied. (more content not included)... Normal [facility] 12 Lead EKGon 06-05-2022 12 Lead EKG [facility] [address] [place] [address] 12 Lead EKG 06/05/22 1215 MR#: [id number] Acct: [id number] Name: JOSE D ROMAN Jr. Rep #: [id number] : 1950 71 From: Mesfin Acuña MD Attending Dr: Dr. León Cook DO Status: PRE [facility] Ordering Dr: León Cook DO Date: 06/05/22 Location: [facility] Sex: M C Admitted: Test Reason : PREOP Blood Pressure : / mmHG Vent. Rate : 074 BPM Atrial Rate : 074 BPM P-R Int : 198 ms QRS Dur : 078 ms QT Int : 390 ms P-R-T Axes : 046 -17 046 degrees QTc Int : 432 ms Normal sinus rhythm Normal ECG Confirmed by JOANN ALEX, MESFIN ([id number]), proposal editor KEVIN CORONADO ([id number]) on 06/05/2022 1:21:09 PM Referred By: León Cook Confirmed By:MESFIN ACUÑA MD 06/05/22 1321 Date Mesfin Acuña MD CC: Dr. India Sams MD; Dr. León Cook DO Signed Normal [facility] Absolute lymphocyte counton 06-05-2022 Lymphocytes Auto (Unsp spec) [#/Vol] 1.55 10*3/uL 0.83-4.51 [facility] Work Phone: Basic Metabolic Profile (BMP )on 06-05-2022 BUN/CRE 24.9 RATIO High 10-20 [facility] Comment on above: Performed By: #### L 100.0100, L500.2500 #### [facility] [address] [place], [address] CA,Total 8.7 mg/dL Normal 8.5-10.1 [facility] Comment on above: Performed By: #### L 100.0100, L500.2500 #### [facility] [address] [place], [address] Chloride [Moles/Vol] 106 mmol/L Normal 98-107 [facility] Comment on above: Performed By: #### L 100.0100, L500.2500 #### [facility] [address] [place], [address] CO2 [Moles/Vol] 28.0 mmol/L Normal 21.0-32.0 [facility] Comment on above: Performed By: #### L 100.0100, L500.2500 #### [facility] [address] [place], [address] Creatinine [Mass/Vol] 0.96 mg/dL Normal 0.70-1.[address] [facility] Comment on above: Result Comment: The validity of the calculated GFR GFRAA in patients over 70 years has not been determined. Clinical correlation is essential. Performed By: #### L 100.0100, L500.2500 #### [facility] [address] [place], [address] EST GFR - AA 99 mL/min Normal >60 [facility] Comment on above: Result Comment: Afri can [place] GFR Calc Performed By: #### L 100.0100, L500.2500 #### [facility] [address] [place], [address] GAP 6 Normal 5-15 [facility] Comment on above: Performed By: #### L 100.0100, L500.2500 #### [facility] [address] [place], [address] GFR/1.73 sq M.predicted among non-blacks MDRD (S/P/Bld) [Vol rate/Area] 82 mL/min/{1.73_m2} Normal >60 [facility] Comment on above: Result Comment: Non- GFR Calc Performed By: #### L 100.0100, L500.2500 #### [facility] [address] [place], [address] Glucose [Mass/Vol] 280 mg/dL High 74-106 [facility] Comment on above: Result Comment: Gluc ose result greater than or equal to 200 mg/dL suggests DIABETES MELLITUS per A.D.A. criteria. Performed By: #### L 100.0100, L500.2500 #### [facility] [address] [place], [address] Potassium [Moles/Vol] 4.0 mmol/L Normal 3.5-5.[address] [facility] Comment on above: Performed By: #### L 100.0100, L500.2500 #### [facility] [address] [place], [address] Sodium [Moles/Vol] 140 mmol/L Normal 136-145 [facility] Comment on above: Performed By: #### L 100.0100, L500.2500 #### [facility] [address] [place], [address] Urea nitrogen [Mass/Vol] 24 mg/dL High 7-18 [facility] Comment on above: Performed By: #### L 100.0100, L500.2500 #### [facility] [address] [place], [address] Basophil percentageon -- 2021 Basophils/100 WBC (Bld) 0.2 % 0-1 [facility] Work Phone: Chloride [Moles/Vol] 106 mmol/L 98-107 [facility] Work Phone: Eosinophils/100 WBC (Bld) 1.8 % 0-5 [facility] Work Phone: Glucose [Mass/Vol] 280 mg/dL 74-106 [facility] Work Phone: Comment on above: Glucose result great er than or equal to 200 mg/dLsuggests DIABETES MELLITUS per A.D.A. criteria. Neutrophils (Bld) [#/Vol] 6.0 10*3/uL 2.0-7.7 [facility] Work Phone: Neutrophils/100 WBC (Bld) 72.3 % 47-70 [facility] Work Phone: Potassium [Moles/Vol] 4.0 mmol/L 3.5-5.[address] [facility] Work Phone: Sodium [Moles/Vol] 140 mmol/L 136-145 [facility] Work Phone: WBC (Bld) [#/Vol] 8.3 10*3/uL 4.4-11.0 [facility] Work Phone: Blood erythrocytes count (nu mber/volume)on 06-05-2022 RBC (Bld) [#/Vol] 4.36 10*6/uL 4.6-6.2 [facility] Work Phone: Blood hemoglobin measurement (mass/volume)on 06-05-2022 Hemoglobin (Bld) [Mass/Vol] 13.8 g/dL 13.0-16.5 [facility] Work Phone: Blood lymphocytes/100 leukoc yteson 06-05-2022 Lymphocytes/100 WBC (Bld) 18.7 % 19-41 [facility] Work Phone: Blood monocytes/100 leukocyt eson 06-05-2022 Monocytes/100 WBC (Bld) 5.8 % 0-10 [facility] Work Phone: Blood platelet mean volumeon 06-05-2022 Platelet mean volume (Bld) [Entitic vol] 10.9 fL 6.2-12.0 [facility] Work Phone: CBC W/Diff, Automatedon 05-18 Absolute Lymph 1.55 X10 3/uL Normal 0.83-4.51 [facility] Comment on above: Performed By: #### L 100.0100, L500.2500 #### [facility] [address] [place], [address] Absolute Neut 6.0 X10 3/uL Normal 2.0-7.7 [facility] Comment on above: Performed By: #### L 100.0100, L500.2500 #### [facility] [address] [place], [address] Basophils/100 WBC (Bld) 0.2 % Normal 0-1 [facility] Comment on above: Performed By: #### L 100.0100, L500.2500 #### [facility] [address] [place], [address] Eosinophils/100 WBC (Bld) 1.8 % Normal 0-5 [facility] Comment on above: Performed By: #### L 100.0100, L500.2500 #### [facility] [address] [place], [address] Erythrocyte distribution width (RBC) [Ratio] 12.1 % Normal 11.6-14.6 [facility] Comment on above: Performed By: #### L 100.0100, L500.2500 #### [facility] [address] [place], [address] Hematocrit (Bld) [Volume fraction] 40.3 % Normal 40-54 [facility] Comment on above: Performed By: #### L 100.0100, L500.2500 #### [facility] [address] [place], [address] Hemoglobin (Bld) [Mass/Vol] 13.8 g/dL Normal 13.0-16.5 [facility] Comment on above: Performed By: #### L 100.0100, L500.2500 #### [facility] [address] [place], [address] IG% 1.200 High 0.0-0.9 [facility] Comment on above: Result Comment: IG% - Immature Granulocytes (promyelocytes, myelocytes and metamyelocytes) > 1% indicates that a LEFT SHIFT is Present. Performed By: #### L 100.0100, L500.2500 #### [facility] [address] [place], [address] Lymphocytes/100 WBC (Bld) 18.7 % Low 19-41 [facility] Comment on above: Performed By: #### L 100.0100, L500.2500 #### [facility] [address] [place], [address] MCH (RBC) [Entitic mass] 31.7 pg Normal 27.0-32.0 [facility] Comment on above: Performed By: #### L 100.0100, L500.2500 #### [facility] [address] [place], [address] MCHC (RBC) [Mass/Vol] 34.2 g/dL Normal 32-[address] [facility] Comment on above: Performed By: #### L 100.0100, L500.2500 #### [facility] [address] [place], [address] MCV (RBC) [Entitic vol] 92.4 fL Normal 80-94 [facility] Comment on above: Performed By: #### L 100.0100, L500.2500 #### [facility] [address] [place], [address] Monocytes/100 WBC (Bld) 5.8 % Normal 0-10 [facility] Comment on above: Performed By: #### L 100.0100, L500.2500 #### [facility] [address] [place], [address] Neutrophils/100 WBC (Bld) 72.3 % High 47-70 [facility] Comment on above: Performed By: #### L 100.0100, L500.2500 #### [facility] [address] [place], [address] Nucleated RBC (Bld) [#/Vol] 0 10*3/uL Normal 0-5 [facility] Comment on above: Performed By: #### L 100.0100, L500.2500 #### [facility] [address] [place], [address] Platelet mean volume (Bld) [Entitic vol] 10.9 fL Normal 6.2-12.0 [facility] Comment on above: Performed By: #### L 100.0100, L500.2500 #### [facility] [address] [place], [address] Platelets (Bld) [#/Vol] 183 10*3/uL Normal 150-450 [facility] Comment on above: Performed By: #### L 100.0100, L500.2500 #### [facility] [address] [place], [address] RBC (Bld) [#/Vol] 4.36 10*6/uL Low 4.6-6.2 [facility] Comment on above: Performed By: #### L 100.0100, L500.2500 #### [facility] [address] [place], [address] RDW SD 41.6 fl Normal 35.1-43.9 [facility] Comment on above: Performed By: #### L 100.0100, L500.2500 #### [facility] [address] [place], [address] WBC (Bld) [#/Vol] 8.3 10*3/uL Normal 4.4-11.0 [facility] Comment on above: Performed By: #### L 100.0100, L500.2500 #### [facility] [address] [place], [address] Chest PA and Lateralon 06-05 Chest PA and Lateral [facility] [address] [place] [address] Chest PA and Lateral MR#: [id number] Acct: [id number] Name: JOSE D ROMAN JrPina Rep #: [id number] : 1950 M 71 From: Deshawn North PCP: Dr. India Sams MD Status: PRE SDC Study: Chest PA and Lateral Date of Exam: 06/05/22 Exam# [id number] Ordering Dr: León Cook DO EXAM: XR CHEST, 2 VIEWS CLINICAL INDICATION: PRE-OP -- HAS EKG FIRST, WILL CALL TECHNIQUE: Frontal and lateral views of the chest. This report was created using [employer] report generation technology. COMPARISON: None. FINDINGS: LUNGS AND PLEURAL SPACES: Unremarkable. No consolidation or edema. No pneumothorax. No effusion. HEART: Unremarkable. Cardiac silhouette not enlarged. MEDIASTINUM: Central airways and mediastinal contour are unremarkable. BONES/JOINTS: Unremarkable. SOFT TISSUES: Unremarkable. RAD/Chest PA and Lateral IMPRESSION: No radiographic evidence of acute cardiopulmonary disease. Electronically Signed: Deshawn Capone MD at 5:54 EST , CC: Dr. India Sams MD; Dr. León Cook DO [employer]: Signed Normal [facility] Determination of erythrocyte mean corpuscular volume (MCV)on 06-05-2022 MCV (RBC) [Entitic vol] 92.4 fL 80-94 [facility] Work Phone: Hematocrit Auto (Bld) [Volum e fraction]on 06-05-2022 Hematocrit (Bld) [Volume fraction] 40.3 % 40-54 [facility] Work Phone: Hemoglobin A1con 06-05-2022 HbA1c (Bld) [Mass fraction] 8.1 % High 3.8-5.6 [facility] Comment on above: Result Comment: Norm al < 5.7 % Prediabetic 5.7 - 6.4 % Diabetic >or= 6.5 % Please note range changes. Performed By: #### L 501.9985 #### [facility] [address] [place], [place], [id number] Laboratory - Chemistry and C hemistry - challengeon 06-05-2022 CO2 [Moles/Vol] 28.0 mmol/L 21.0-32.0 [facility] Work Phone: Urea nitrogen/Creatinine [Mass ratio] 24.9 mg/mg 10-20 [facility] Work Phone: Laboratory - Hematology and Cell countson 06-05-2022 Erythrocyte distribution width (RBC) [Entitic vol] 41.6 fL 35.1-43.9 [facility] Work Phone: Erythrocyte distribution width (RBC) [Ratio] 12.1 % 11.6-14.6 [facility] Work Phone: Immature granulocytes/100 WBC (Bld) 1.200 % 0.0-0.9 [facility] Work Phone: Comment on above: IG% - Immature Granu locytes (promyelocytes, myelocytes and metamyelocytes) > 1% indicates that a LEFT SHIFT is Present. MCH (RBC) [Entitic mass] 31.7 pg 27.0-32.0 [facility] Work Phone: Nucleated RBC/100 WBC (Bld) [Ratio] 0 % 0-5 [facility] Work Phone: MCHC Auto (RBC) [Mass/Vol]on 06-05-2022 MCHC (RBC) [Mass/Vol] 34.2 g/dL 32-[address] [facility] Work Phone: No Panel Informationon 06-05 Estimated GFR (MDRD) Amer 99 mL/min >60 [facility] Work Phone: Comment on above: GFR Calc Estimated GFR (MDRD) Non-Af Amer 82 mL/min >60 [facility] Work Phone: Comment on above: Non- GFR Calc Platelets bldon 06-05-2022 Platelets (Bld) [#/Vol] 183 10*3/uL 150-450 [facility] Work Phone: Serum or plasma calcium kimberly urement (mass/volume)on 06-05-2022 Calcium [Mass/Vol] 8.7 mg/dL 8.5-10.1 [facility] Work Phone: Serum or plasma creatinine m easurement (mass/volume)on 06-05-2022 Creatinine [Mass/Vol] 0.96 mg/dL 0.70-1.[address] [facility] Work Phone: Comment on above: The validity of the calculated GFR & GFRAA in patients over 70 years has not been determined. Clinical correlation is essential. Serum or plasma urea nitroge n measurement (mass/volume)on 06-05-2022 Urea nitrogen [Mass/Vol] 24 mg/dL 7- [facility] Work Phone: Thin prep Papanicolaou smear with manual screeningon 06-05-2022 Thin prep Papanicolaou smear with manual screening 6 -15 [facility] Work Phone: Whole blood hemoglobin A1c/t otal hemoglobin ratio (mass fraction)on 06-05-2022 HbA1c (Bld) [Mass fraction] 8.1 % 3.8-5.6 [facility] Work Phone: Comment on above: Normal < 5.7 % Predi abetic 5.7 - 6.4 % Diabetic >or= 6.5 % Please note range changes. CNOVon 04-23-2017 CNOV Office Visit (AGCARDWST) ----JOSE D ROMAN ([id number]) 1950 MDate Time Provider Cwmxuqkcow75/6/17 9:00 AM TRENT NICOLAS During your visit today, we recorded the following information about you: Pulse Blood pressure Weight 58/minute 172/77 85.4 kgTrent Nicolas MD 04/24/2017 8:46 AM SignedPERTINENT CARDIAC HISTORYADHERENCE TO GUIDELINESACE-I or ARB for HF with prior LVEFANDlt;40 (NQF 0081) - N/AASA or Plavix for ASHD (NQF 0067) - metBeta charlie for ASHD with prior VA or prior LVEFANDlt;40 (NQF 0070) - N/ABeta charlie for HF with prior LVEFANDlt;40 (NQF 0083) - N/AACE-I or ARB for ASHD with DM or prior LVEFANDlt;40 (NQF 0066) - metStatin therapy for ASHD or FHL or DM - metBMI documented and plan if ANDgt;25 (NQ 0421) - lifestyle recommendation formTobacco use screening and referral (NQ 0028) - lifestyle recommendation formRecommendation for whole food, plant based diet - lifestyle recommendation formCLINICAL IMPRESSION/PLAN:Jose D Roman is doing well. He's had no recurrent syncope. Blood pressure isprobably okay at home, but he's been advised to check this frequently over thenext 2 weeks and contact me. We can increase amlodipine if necessary.I've encouraged him to continue his current activity.I will see him in 8 months or as needed.Written and verbal health teaching given to patient, patient verbalizesunderstanding and agrees with treatment plan.This note was generated using [employer] voice recognition system, and there may besome incorrect words, spellings, and punctuation that were not noted inchecking the note before saving.DIAGNOSIS FOR VISIT:HypertensionHISTORY OF PRESENT ILLNESSJose D Roman returns for follow-up of his hypertension and syncope. Hereports good exercise tolerance. He has been walking 5 miles per day onaverage. He's had no chest discomfort.He denies orthopnea, edema, palpitations, TIAs, amaurosis or claudication. Hehas had no syncope. He has been under better control with systolic pressures inthe 130-140 range. These have been confirmed on recent visits when he broughthis own cough in for validation. He has been following in vascular surgery.ALLERGIES:ALLERGIESNo Known AllergiesCURRENT OUTPATIENT MEDICATIONS:amLODIPine (NORVASC) 5 mg tablet Take 1 tablet by mouth once daily.metFORMIN (GLUCOPHAGE) 500 mg tablet Take 1 tablet by mouth daily withbreakfast.metoprolol tartrate, short acting, (LOPRESSOR) 25 mg tablet Take 0.5 tablets bymouth twice daily.atorvastatin (LIPITOR) 20 mg tablet Take 1 tablet by mouth once daily.lisinopril 30 mg tablet Take 1 tablet by mouth once daily.blood sugar diagnostic (RELION PRIME TEST STRIPS) test strip Test glucose onceevery 3 days or soBlood-Glucose Meter (RELION PRIME METER) [facility] Checks sugars every 3 days or socinnamon bark(CINNAMON 500 MG CAP) Take one(1) tablet daily.aspirin(ECOTRIN LOW STRENGTH 81 MG TAB) Take one(1) tablet daily.ascorbic acid(VITAMIN C 500 MG TAB) Take one(1) tablet daily.PHYSICAL EXAMINATION:VITAL SIGNS: BP 172/77 Pulse 58 Wt 188 lb 4.8 oz (85.4kg)Chest: Clear to percussion and auscultation. Trachea is midline. Air entry isequal. Cardiac: Regular rhythm. S1 and S2 are normal. PMI is nondisplaced.There are no murmurs, rubs or gallops. Carotids are brisk without bruits.JVP is less than 10 cm. Abdomen: Soft and nontender. There are no pulsatilemasses or bruits. No liver enlargement. Bowel sounds are active.Extremities: No edema. Pulses are intact and symmetrical.Recent labs reviewed. Renal function is normal. LDL was 68.Electronically Signed:Trent Nicolas MDApril 23, 2017 9:04 [facility]: Phillip Stanley MD 04/23/2017 9:05 AM SignedLIFESTYLE CHANGEA healthy lifestyle is the most important component of your overall treatmentplan. Please give serious thought to the following areas and commit to makinglong term changes.EAT A WHOLE FOOD, PLANT BASED DIETThe nutrition your body gets is more important than the medicine you take.What matters most is the overall way you eat. We encourage you to minimize theuse of animal products (which include dairy and all meats except fatty fish)and use whole, unprocessed plant foods to provide your protein, vitamins andother nutrients. We have a lot of information to share with you on this topic. We also hold Shared Medical Appointments, where you can come visit with in the company of other patients and spend over an hour talking aboutthe challenges of changing the way you eat. This is not a ANDquot;dietANDquot;.It is a way of life that you will keep with you.EXERCISE REGULARLYIt is not important to spend hours in the gym, lifting weights and perspiringheavily. A total of 2-3 hours per week of aerobic (causing you to bemoderately short of breath) exercise is sufficient to improve your health.Talk to us before you begin a new exercise program, if you have heart diseaseor experience shortness of breath or chest pain.REDUCE STRESSChronic emotional and physical stress leads to disease. Ways of reducingstress include meditation, visualization, prayer, yoga and other forms ofrelaxation therapy. Consistency is the combs. Find a technique that works foryou and do it every day.CULTIVATE RELATIONSHIPSLoneliness and isolation have a major negative impact on health. Seek outothers who can love, care for and nurture you. Avoid hurtful relationships.MAINTAIN IDEAL BODY WEIGHTThe best way to do this is to do all the things above. Our bodies naturallyfind the right weight if we keep moving and feed ourselves the right food. Ifyour BMI is greater than 25, we strongly recommend a referral to a weightmanagement program. Please speak to us or your family physician aboutavailable programs.AVOID NICOTINE IN ALL FORMSThis includes all tobacco products, whether chewed, smoked, vaped, or rubbed onthe skin. Smoking cessation programs, which can make use of tobaccosubstitutes, medications to suppress cravings and behavior management, areavailable. Please contact your family physician about programs in your area.Referring Provider: TRENT NICOLAS [[id number]]Allergies As of Date: 04/23/2017(No Known Allergies)Date Reviewed: 04/23/2017Reviewed by: Khalida Manzano - Fully AssessedReason for Visit: Recheck [92]Primary Visit Diagnosis:Other hyperlipidemia [E78.4] Other Visit Diagnosis:Hypertension, essential [I10]Prescriptions as of 04/23/2017 Sig: AMLODIPINE 5 MG TABLET Take 1 tablet by mouth once d* METFORMIN 500 MG TABLET Take 1 tablet by mouth daily * METOPROLOL TARTRATE 25 MG TAB* Take 0.5 tablets by mouth twi* ATORVASTATIN 20 MG TABLET Take 1 tablet by mouth once d* LISINOPRIL 30 MG TABLET Take 1 tablet by mouth once d* BLOOD SUGAR DIAGNOSTIC STRIPS Test glucose once every 3 day* BLOOD-GLUCOSE METER Checks sugars every 3 days or* CINNAMON 500 MG CAPSULE Take one(1) tablet daily. ECOTRIN LOW STRENGTH 81 MG TA* Take one(1) tablet daily. VITAMIN C 500 MG TABLET Take one(1) tablet daily.Problem List As Of Date 04/23/2017 Noted Resolved LEFT HORNERS SYNDROME [G90.9] INVALID FOR* Other and unspecified hyperlipidemia [E78.5] INVALID FOR*10/06/2013 HYPERGLYCEMIA [R79.89] INVALID FOR*10/06/2013 OVERWEIGHT [E66.9] INVALID FOR*10/06/2013 AAA (abdominal aortic aneurysm) (HCC) [I71.4] INVALID FOR*09/24/2016 Occlusion and stenosis of carotid artery withou*INVALID FOR* Umbilical hernia [K42.9] INVALID FOR* Diabetes mellitus type 2, controlled, without c* More... Hyperlipidemia [E78.5] Essential hypertension [I10] INVALID FOR* Uncontrolled type 2 diabetes mellitus without c*INVALID FOR* Hx of endovascular stent graft for abdominal ao* Other instructions from your clinician: LIFESTYLE CHANGE A healthy lifestyle is the most important component of your overall treatment plan. 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 EAT A WHOLE FOOD, PLANT BASED DIET The nutrition your body gets is more important than the medicine you take. What matters most is the overall way you eat. We encourage you to minimize the use of animal products (which include dairy and all meats except fatty fish) and use whole, unprocessed plant foods to provide your protein, vitamins and other nutrients. We have a lot of information to share with you on this topic. We also hold Shared Medical Appointments, where you can come visit with Dr. Nicolas in the company of other patients and spend over an hour talking about the challenges of changing the way you eat. This is not a diet. It is a way of life that you will keep with you. EXERCISE REGULARLY It is not important to spend hours in the gym, lifting weights and perspiring heavily. A total of 2-3 hours per week of aerobic (causing you to be moderately short of breath) exercise is sufficient to improve your health. Talk to us before you begin a new exercise program, if you have heart disease or experience shortness of breath or chest pain. REDUCE STRESS Chronic emotional and physical stress leads to disease. Ways of reducing stress include meditation, visualization, prayer, yoga and other forms of relaxation therapy. Consistency is the combs. Find a technique that works for you and do it every day. CULTIVATE RELATIONSHIPS Loneliness and isolation have a major negative impact on health. Seek out others who can love, care for and nurture you. Avoid hurtful relationships. MAINTAIN IDEAL BODY WEIGHT The best way to do this is to do all the things above. Our bodies naturally find the right weight if we keep moving and feed ourselves the right food. If your BMI is greater than 25, we strongly recommend a referral to a weight management program. Please speak to us or your family physician about available programs. AVOID NICOTINE IN ALL FORMS This includes all tobacco products, whether chewed, smoked, vaped, or rubbed on the skin. Smoking cessation programs, which can make use of tobacco substitutes, medications to suppress cravings and behavior management, are available. Please contact your family physician about programs in your area. Status:Closed by TRENT NICOLAS MD on 04/24/17 [facility] PROGRESSon 04-23-2017 PROGRESS HNO ID: [id number] thor: Trent Navas: (none)Author Type: PhysicianType: Progress NotesFiled: 04/24/2017 8:46 AMNote Text:PERTINENT CARDIAC HISTORYADHERENCE TO GUIDELINESACE-I or ARB for HF with prior LVEF<40 (NQF 0081) - N/AASA or Plavix for ASHD (NQF 0067) - metBeta charlie for ASHD with prior VA or prior LVEF<40 (NQF 0070) - N/ABeta charlie for HF with prior LVEF<40 (NQF 0083) - N/AACE-I or ARB for ASHD with DM or prior LVEF<40 (NQF 0066) - metStatin therapy for ASHD or FHL or DM - metBMI documented and plan if >25 (NQF 0421) - lifestyle recommendation formTobacco use screening and referral (NQF 0028) - lifestyle recommendationformRecommendat ion for whole food, plant based diet - lifestyle recommendationformCLINICAL IMPRESSION/PLAN:Jose D Roman is doing well. He's had no recurrent syncope. Bloodpressure is probably okay at home, but he's been advised to check thisfrequently over the next 2 weeks and contact me. We can increaseamlodipine if necessary.I've encouraged him to continue his current activity.I will see him in 8 months or as needed.Written and verbal health teaching given to patient, patient verbalizesunderstanding and agrees with treatment plan.This note was generated using My e[employer] App voice recognition system, and theremay be some incorrect words, spellings, and punctuation that were notnoted in checking the note before saving.DIAGNOSIS FOR VISIT:HypertensionHISTORY OF PRESENT ILLNESSJose D Roman returns for follow-up of his hypertension and syncope. Hereports good exercise tolerance. He has been walking 5 miles per day onaverage. He's had no chest discomfort.He denies orthopnea, edema, palpitations, TIAs, amaurosis or claudication.He has had no syncope. He has been under better control with systolicpressures in the 130-140 range. These have been confirmed on recent visitswhen he brought his own cough in for validation. He has been following invascular surgery.ALLERGIES:ALLERGIESNo Known AllergiesCURRENT OUTPATIENT MEDICATIONS:amLODIPine (NORVASC) 5 mg tablet Take 1 tablet by mouth once daily.metFORMIN (GLUCOPHAGE) 500 mg tablet Take 1 tablet by mouth daily withbreakfast.metoprolol tartrate, short acting, (LOPRESSOR) 25 mg tablet Take 0.5tablets by mouth twice daily.atorvastatin (LIPITOR) 20 mg tablet Take 1 tablet by mouth once daily.lisinopril 30 mg tablet Take 1 tablet by mouth once daily.blood sugar diagnostic (RELION PRIME TEST STRIPS) test strip Test glucoseonce every 3 days or soBlood-Glucose Meter (RELION PRIME METER) [facility] [place] sugars every 3 daysor socinnamon bark(CINNAMON 500 MG CAP) Take one(1) tablet daily.aspirin(ECOTRIN LOW STRENGTH 81 MG TAB) Take one(1) tablet daily.ascorbic acid(VITAMIN C 500 MG TAB) Take one(1) tablet daily.PHYSICAL EXAMINATION:VITAL SIGNS: BP 172/77 Pulse 58 Wt 188 lb 4.8 oz (85.4kg)Chest: Clear to percussion and auscultation. Trachea is midline. Airentry is equal. Cardiac: Regular rhythm. S1 and S2 are normal. PMI isnondisplaced. There are no murmurs, rubs or gallops. Carotids are briskwithout bruits. JVP is less than 10 cm. Abdomen: Soft and nontender.There are no pulsatile masses or bruits. No liver enlargement. Bowelsounds are active. Extremities: No edema. Pulses are intact andsymmetrical.Recent labs reviewed. Renal function is normal. LDL was 68.Electronically Signed:Trent Nicolas MDNov2016 9:04 [facility]: India Sams MD [facility] Vital Signs Date Time Vital Sign Value Performing Clinician Facility 09-29-2024 07:08-0400 Body mass index (BMI) [Ratio] 29.03 kg/m2 Marium Teodoro TECHNICAL SUPPORT ANALYST.PACKING AND STAMPING MACHINE OPERATOR Work Phone: [facility] 09-29-2024 07:08-0400 Body weight 84.9 kg Marium Teodoro TECHNICAL SUPPORT ANALYST.PACKING AND STAMPING MACHINE OPERATOR Work Phone: [facility] 09-29-2024 07:08-0400 Diastolic blood pressure 60 mm[Hg] Marium Hesterr TECHNICAL SUPPORT ANALYST.PACKING AND STAMPING MACHINE OPERATOR Work Phone: [facility] 09-29-2024 07:08-0400 Heart rate 69 /min Marium Teodoro TECHNICAL SUPPORT ANALYST.PACKING AND STAMPING MACHINE OPERATOR Work Phone: [facility] 09-29-2024 07:08-0400 SaO2% (BldA) [Mass fraction] 96 % Marium Hesterr TECHNICAL SUPPORT ANALYST.PACKING AND STAMPING MACHINE OPERATOR Work Phone: [facility] 09-29-2024 07:08-0400 Systolic blood pressure 128 mm[Hg] Marium Hesterr TECHNICAL SUPPORT ANALYST.PACKING AND STAMPING MACHINE OPERATOR Work Phone: [facility] 04-02-2024 09:13-0400 Diastolic blood pressure 62 mm[Hg] India Sams MD Work Phone: [facility] 04-02-2024 09:13-0400 Systolic blood pressure 136 mm[Hg] India Sams MD Work Phone: [facility] 04-02-2024 08:38-0400 Body height 171 cm India Sams MD Work Phone: [facility] 04-02-2024 08:38-0400 Body mass index (BMI) [Ratio] 29.38 kg/m2 India Sams MD Work Phone: [facility] 04-02-2024 08:38-0400 Body temperature 97.2 [degF] India Sams MD Work Phone: [facility] 04-02-2024 08:38-0400 Body weight 85.9 kg India Sams MD Work Phone: [facility] 04-02-2024 08:38-0400 Heart rate 73 /min India Sams MD Work Phone: [facility] 04-02-2024 08:38-0400 Respiratory rate 16 /min India Sams MD Work Phone: [facility] 04-02-2024 08:38-0400 SaO2% (BldA) [Mass fraction] 98 % India Sams MD Work Phone: [facility] 10-02-2023 09:47-0400 Body mass index (BMI) [Ratio] 29.7 kg/m2 India Sams MD Work Phone: [facility] 10-02-2023 09:47-0400 Body temperature 96.3 [degF] India Sams MD Work Phone: [facility] 10-02-2023 09:47-0400 Body weight 83.46 kg India Sams MD Work Phone: [facility] 10-02-2023 09:47-0400 Diastolic blood pressure 64 mm[Hg] India Sams MD Work Phone: [facility] 10-02-2023 09:47-0400 Heart rate 70 /min India Sams MD Work Phone: [facility] 10-02-2023 09:47-0400 Respiratory rate 18 /min India Sams MD Work Phone: [facility] 10-02-2023 09:47-0400 SaO2% (BldA) [Mass fraction] 96 % India Sams MD Work Phone: [facility] 10-02-2023 09:47-0400 Systolic blood pressure 118 mm[Hg] India Sams MD Work Phone: [facility] 05-14-2023 13:22-0500 Body temperature 99 [degF] Donya Benites APRN.PACKING AND STAMPING MACHINE OPERATOR Work Phone: [facility] 05-14-2023 13:22-0500 Body weight 84.55 kg Donya Benites APRN.PACKING AND STAMPING MACHINE OPERATOR Work Phone: [facility] 05-14-2023 13:22-0500 Diastolic blood pressure 58 mm[Hg] Donya Benites APRN.PACKING AND STAMPING MACHINE OPERATOR Work Phone: [facility] 05-14-2023 13:22-0500 Heart rate 90 /min Donya Benites APRN.PACKING AND STAMPING MACHINE OPERATOR Work Phone: [facility] 05-14-2023 13:22-0500 Respiratory rate 21 /min Donya Benites APRN.PACKING AND STAMPING MACHINE OPERATOR Work Phone: [facility] 05-14-2023 13:22-0500 SaO2% (BldA) [Mass fraction] 94 % Donya Benites APRN.PACKING AND STAMPING MACHINE OPERATOR Work Phone: [facility] 05-14-2023 13:22-0500 Systolic blood pressure 122 mm[Hg] Donya Benites APRN.PACKING AND STAMPING MACHINE OPERATOR Work Phone: [facility] 04-07-2023 23:45-0400 Diastolic blood pressure 64 mm[Hg] [facility] 04-07-2023 23:45-0400 Heart rate 70 /min [facility] 04-07-2023 23:45-0400 Respiratory rate 18 /min [facility] 04-07-2023 23:45-0400 SaO2% (BldA) [Mass fraction] 96 % [facility] 04-07-2023 23:45-0400 Systolic blood pressure 136 mm[Hg] [facility] 04-07-2023 21:35-0400 Body height 170.18 cm [facility] 04-07-2023 21:35-0400 Body mass index (BMI) [Ratio] 29.9 kg/m2 [facility] 04-07-2023 21:35-0400 Body temperature 98.2 [degF] [facility] 04-07-2023 21:35-0400 Body weight 86.63 kg [facility] 03-27-2023 08:47-0400 Diastolic blood pressure 62 mm[Hg] India Sams MD Work Phone: [facility] 03-27-2023 08:47-0400 Systolic blood pressure 132 mm[Hg] India Sams MD Work Phone: [facility] 03-27-2023 08:04-0400 Body height 167.6 cm India Sams MD Work Phone: [facility] 03-27-2023 08:04-0400 Body temperature 97.39 [degF] India Sams MD Work Phone: [facility] 03-27-2023 08:04-0400 Body weight 85.73 kg India Sams MD Work Phone: [facility] 03-27-2023 08:04-0400 Heart rate 70 /min India Sams MD Work Phone: [facility] 03-27-2023 08:04-0400 Respiratory rate 18 /min India Sams MD Work Phone: [facility] 03-27-2023 08:04-0400 SaO2% (BldA) [Mass fraction] 97 % India Sams MD Work Phone: [facility] 09-15-2022 09:47-0400 Body temperature 97.39 [degF] India Sams MD Work Phone: [facility] 09-15-2022 09:47-0400 Body weight 85.73 kg India Sams MD Work Phone: [facility] 09-15-2022 09:47-0400 Diastolic blood pressure 68 mm[Hg] India Sams MD Work Phone: [facility] 09-15-2022 09:47-0400 Heart rate 67 /min India Sams MD Work Phone: [facility] 09-15-2022 09:47-0400 Respiratory rate 18 /min India Sams MD Work Phone: [facility] 09-15-2022 09:47-0400 SaO2% (BldA) [Mass fraction] 97 % India Sams MD Work Phone: [facility] 09-15-2022 09:47-0400 Systolic blood pressure 126 mm[Hg] India Sams MD Work Phone: [facility] 06-08-2022 12:14-0500 Body temperature 97.5 [degF] [facility] Work Phone: 06-08-2022 12:14-0500 Diastolic blood pressure 74 mm[Hg] [facility] Work Phone: 06-08-2022 12:14-0500 Heart rate 77 /min [facility] Work Phone: 06-08-2022 12:14-0500 Respiratory rate 18 /min [facility] Work Phone: 06-08-2022 12:14-0500 SaO2% (BldA) [Mass fraction] 97 % [facility] Work Phone: 06-08-2022 12:14-0500 Systolic blood pressure 150 mm[Hg] [facility] Work Phone: 06-08-2022 09:18-0500 Body height 170.18 cm [facility] Work Phone: 06-08-2022 09:18-0500 Body mass index (BMI) [Ratio] 29.8 kg/m2 [facility] Work Phone: 06-08-2022 09:18-0500 Body weight 86.5 kg [facility] Work Phone: 07-25-2021 09:18-0500 Diastolic blood pressure 72 mm[Hg] India Sams MD Work Phone: [facility] 07-25-2021 09:18-0500 Systolic blood pressure 130 mm[Hg] India Sams MD Work Phone: [facility] 07-25-2021 08:53-0500 Body weight 88.91 kg India Sams MD Work Phone: [facility] 07-25-2021 08:53-0500 Heart rate 82 /min India Sams MD Work Phone: [facility] Encounters Encounter Date Encounter Type Care Provider Facility Start: 04-07-2025 End: 04-07-2025 ambulatory INDIA SAMS Facility:[facility] Start: 04-07-2025 Patient encounter procedure INDIA SAMS [facility] Start: 04-03-2025 End: 04-03-2025 ambulatory INDIA Can SAMS Facility:[facility] Start: 03-31-2025 End: 03-31-2025 ambulatory INDIA Can SAMS Facility:[facility] Start: 01-26-2025 End: 01-27-2025 Refill India Sams MD Work Phone: [facility] Comment on above: Refill Request Start: 11-22-2024 End: 11-24-2024 Refill Francoise Urrutia TECHNICAL SUPPORT ANALYST.PACKING AND STAMPING MACHINE OPERATOR Work Phone: [facility] [place] Comment on above: Refill Request Start: 10-30-2024 End: 10-30-2024 Refill India Sams MD Work Phone: [facility] Comment on above: Refill Request Start: 09-29-2024 End: 09-29-2024 ambulatory MARIUM VALERIO Facility:[facility] Start: 09-29-2024 End: 09-29-2024 Patient encounter procedure Marium Valerio TECHNICAL SUPPORT ANALYST.PACKING AND STAMPING MACHINE OPERATOR Work Phone: [facility] Comment on above: Essential hypertensi on (Primary Dx); Controlled type 2 diabetes mellitus without complication, without long-term current use of insulin (HCC); Mixed hyperlipidemia; Hyperlipidemia associated with type 2 diabetes mellitus (HCC); Encounter for therapeutic drug monitoring Start: 09-26-2024 End: 09-26-2024 ambulatory INDIA SAMS Facility:[facility] Start: 08-02-2024 End: 08-05-2024 Refill Abigail Harkins APRN.SENIOR EDITOR Work Phone: [facility] Comment on above: Refill Request Start: 07-31-2024 End: 07-31-2024 ambulatory India Sams MD Work Phone: [facility] Comment on above: Allied Health Visit (Medication Adherence Outreach ) Start: 04-02-2024 End: 04-02-2024 Patient encounter procedure India Sams MD Work Phone: [facility] Comment on above: Medicare annual well ness visit, subsequent (Primary Dx); Controlled type 2 diabetes mellitus without complication, without long-term current use of insulin (HCC); Essential hypertension; Mixed hyperlipidemia; Encounter for screening examination for other mental health and behavioral disorders; Encounter for immunization; Screening for depression Start: 10-02-2023 End: 10-02-2023 Office outpatient visit 25 minutes India Sams MD Work Phone: [facility] [place] Comment on above: Controlled type 2 di abetes mellitus without complication, without long-term current use of insulin (HCC) (Primary Dx); Essential hypertension; Mixed hyperlipidemia; Encounter for immunization; Encounter for long-term current use of medication Start: 06-04-2023 Refill Abigail PRESTONSENIOR EDITOR Work Phone: [facility] [place] Comment on above: Refill Request Start: 05-15-2023 Telephone encounter India ulrich MD Work Phone: [facility] Comment on above: Patient Update (coug h continues and elevated blood sugars) Start: 05-14-2023 End: 05-14-2023 Patient encounter procedure Donya Benites APRN.PACKING AND STAMPING MACHINE OPERATOR Work Phone: [facility] Comment on above: URI, acute (Primary Dx); Sore throat Start: 04-07-2023 End: 04-07-2023 Emergency department patient visit [facility] Work Phone: Start: 03-27-2023 End: 03-27-2023 Office outpatient visit 25 minutes India Sams MD Work Phone: Internal [facility] Comment on above: Controlled type 2 di abetes mellitus without complication, without long-term current use of insulin (HCC) (Primary Dx); Essential hypertension; Mixed hyperlipidemia; Umbilical hernia without obstruction and without gangrene Start: 02-20-2023 Refill Abigail Seymour PRN.SENIOR EDITOR Work Phone: [facility] [place] Comment on above: Refill Request Start: 02-06-2023 Refill Francoise Andrews TECHNICAL SUPPORT ANALYST .PACKING AND STAMPING MACHINE OPERATOR Work Phone: [facility] Comment on above: Refill Request Start: 12-29-2022 Refill India maddox MD Work Phone: Internal [facility] Comment on above: Refill Request Start: 09-15-2022 End: 09-15-2022 Office outpatient visit 25 minutes India Sams MD Work Phone: [facility] [place] Comment on above: Controlled type 2 di abetes mellitus without complication, without long-term current use of insulin (HCC) (Primary Dx); Essential hypertension; Mixed hyperlipidemia Start: 06-08-2022 End: 06-08-2022 ambulatory León Cook Facility:[facility] Start: 06-08-2022 End: 06-08-2022 Admission to same day surgery center [facility] Start: 06-08-2022 End: 06-08-2022 ambulatory [facility] Work Phone: Start: 06-05-2022 End: 06-05-2022 ambulatory India Sams [place] [place] Start: 04-29-2022 Refill Abigail Seymour PRN.SENIOR EDITOR Work Phone: Internal [facility] Comment on above: Refill Request Start: 04-19-2022 Refill Rafael MARTIN.PACKING AND STAMPING MACHINE OPERATOR Work Phone: [facility] Comment on above: Refill Request Start: 04-08-2022 End: 04-08-2022 ambulatory [facility] Work Phone: [facility] Comment on above: Arrived Start: 03-25-2022 Refill Abigail Seymour PRN.SENIOR EDITOR Work Phone: Internal [facility] Comment on above: Refill Request Start: 02-27-2022 Refill India maddox MD Work Phone: [facility] Comment on above: Refill Request Start: 07-25-2021 End: 07-25-2021 Patient encounter procedure India Sams MD Work Phone: [facility] [place] Comment on above: Essential hypertensi on (Primary Dx); Mixed hyperlipidemia; Controlled type 2 diabetes mellitus without complication, without long-term current use of insulin (HCC); Personal history of COVID-19 Start: 09-06-2020 End: 09-06-2020 Patient encounter procedure [facility] Start: 08-12-2020 End: 08-12-2020 Patient encounter procedure [facility] Start: 12-21-2017 Ambulatory TRENT NICOLAS Facility :[facility] Start: 04-23-2017 End: 04-23-2017 [facility] Procedures Date Procedure Procedure Detail Performing Clinician Start: 04-02-2024 Adult depression scr eening assessment India Sams MD Work Phone: Start: 05-14-2023 STREP A MOLECULAR (POC) Donya Benites APRN.PACKING AND STAMPING MACHINE OPERATOR Work Phone: Start: 04-07-2023 CT of abdomen and pe lvis without contrast Start: 06-08-2022 Fluoroscopic guidance Start: 06-08-2022 Radiography of ankle Start: 06-08-2022 Open reduction with internal fixation Start: 06-05-2022 Plain chest X-ray Start: 04-08-2022 INFLUENZA SEASONAL QUADRIVALENT HIGH DOSE AGE 65+ Gavin Gamboa MD Work Phone: Start: 07-25-2021 Adult depression scr eening assessment India Sams MD Work Phone: Start: 07-29-2018 Colonoscopy India flores MD Work Phone: History of tonsillectomy S/P tonsillectom y Plan of Treatment Date Care Activity Detail Author Start: 01-05-2031 Urine microalbumin profile [facility] Start: 07-29-[address] [facility] Start: 07-29-2028 COLORECTAL CANCER SCREENING COLORECTAL CANCER SCREENING [facility] Start: 07-29-2028 Screening for malign ant neoplasm of colon [facility] Start: 09-29-2025 Annual PCP Team Strip Polisher freedom Disease Visit Annual PCP Team Chronic Disease Visit [facility] Start: 09-29-2025 BP Controlled (<130/80) BP Controlle d (<130/80) [facility] Start: 09-26-2025 Hepatitis B surface antibody level LDL Cholesterol [facility] Start: 2025 RSV Vaccine (1 - 1-d ose 75+ series) RSV Vaccine (1 - 1-dose 75+ series) [facility] Start: 04-07-2025 End: 04-07-2025 Patient encounter procedure 04/07/2025 9:40 AM EDT Office Visit [facility] [address], [place] [id number] India Sams MD [address] [place], [place] [id number] Medicare Wellness [facility] [place] Comment on above: Medicare Wellness Start: 04-02-2025 Annual PCP Team Strip Polisher freedom Disease Visit Annual PCP Team Chronic Disease Visit [facility] Start: 04-02-2025 Anxiety Screening Anxiety Screening [facility] Start: 04-02-2025 Depression Screening Depression Scre ening [facility] Start: 04-02-2025 Diabetic foot examination Diabetic Foot Exam [facility] Start: 03-28-2025 Hemoglobin A1c measurement HbA1C [facility] Start: 03-28-2025 Hepatitis B screening Urine Al bumin:Creatinine Ratio [facility] Start: 03-01-2025 End: 05-31-2025 CBC W Auto Differential panel - Blood COMPLETE BLOOD COUNT AND DIFFERENTIAL Lab Routine Encounter for therapeutic drug monitoring Expected: 03/01/2025, Expires: 05/31/2025 [facility] Work Phone: Comment on above: Expected: 03/01/2025 , Expires: 05/31/2025 Start: 03-01-2025 End: 05-31-2025 Comprehensive metabolic 2000 panel - Serum or Plasma COMPREHENSIVE METABOLIC PANEL Lab Routine Essential hypertension Encounter for therapeutic drug monitoring Expected: 03/01/2025, Expires: 05/31/[address] [facility] Comment on above: Expected: 03/01/2025 , Expires: 05/31/2025 Start: 03-01-2025 End: 05-31-2025 Hemoglobin A1c in Blood HEMOGLOBIN A1C Lab Routine Controlled type 2 diabetes mellitus without complication, without long-term current use of insulin (HCC) Expected: 03/01/2025, Expires: 05/31/[address] [facility] Comment on above: Expected: 03/01/2025 , Expires: 05/31/2025 Start: 03-01-2025 End: 05-31-2025 Microalbumin/Creatinine [Mass Ratio] in Urine ALBUMIN/CREATININE RATIO, URINE Lab Routine Controlled type 2 diabetes mellitus without complication, without long-term current use of insulin (HCC) Hyperlipidemia associated with type 2 diabetes mellitus (HCC) Expected: 03/01/2025, Expires: 05/31/[address] [facility] Comment on above: Expected: 03/01/2025 , Expires: 05/31/2025 Start: 02-16-2025 Influenza vaccination Influenza Vacc ine (#1) [facility] Start: 01-22-2025 Glaucoma screening Dilated Retinal E xam [facility] Start: 10-01-2024 Annual PCP Team Strip Polisher freedom Disease Visit Annual PCP Team Chronic Disease Visit [facility] Start: 10-01-2024 BP Controlled (<130/80) BP Controlle d (<130/80) [facility] Start: 10-01-2024 End: 10-01-2024 Patient encounter procedure 10/01/2024 9:00 AM EDT Office Visit [facility] [address] [place] [address] India Sams MD [address] [facility] [place] [address] 6 month follow up [facility] Comment on above: 6 month follow up Start: 09-28-2024 Hepatitis B surface antibody level LDL Cholesterol [facility] Start: 08-31-2024 End: 11-30-2024 CBC panel - Blood by Automated count COMPLETE BLOOD COUNT Lab Routine Controlled type 2 diabetes mellitus without complication, without long-term current use of insulin (HCC) Essential hypertension Expected: 08/31/2024 (Approximate), Expires: 11/30/[address] [facility] Comment on above: Expected: 08/31/2024 (Approximate), Expires: 11/30/2024 Start: 08-31-2024 End: 11-30-2024 Comprehensive metabolic 2000 panel - Serum or Plasma COMPREHENSIVE METABOLIC PANEL Lab Routine Controlled type 2 diabetes mellitus without complication, without long-term current use of insulin (HCC) Essential hypertension Expected: 08/31/2024 (Approximate), Expires: 11/30/2024 [facility] Work Phone: Comment on above: Expected: 08/31/2024 (Approximate), Expires: 11/30/2024 Start: 08-31-2024 End: 11-30-2024 Hemoglobin A1c in Blood HEMOGLOBIN A1C Lab Routine Controlled type 2 diabetes mellitus without complication, without long-term current use of insulin (HCC) Expected: 08/31/2024 (Approximate), Expires: 11/30/[address] [facility] Comment on above: Expected: 08/31/2024 (Approximate), Expires: 11/30/2024 Start: 08-31-2024 End: 11-30-2024 Lipid 1996 panel - Serum or Plasma LIPID PANEL BASIC Lab Routine Controlled type 2 diabetes mellitus without complication, without long-term current use of insulin (HCC) Mixed hyperlipidemia Expected: 08/31/2024 (Approximate), Expires: 11/30/[address] [facility] Comment on above: Expected: 08/31/2024 (Approximate), Expires: 11/30/2024 Start: 07-31-2024 Glaucoma screening Dilated Retinal E xam [facility] Start: 06-28-2024 Hemoglobin A1c measurement HbA1C [facility] Start: 06-18-2024 Advance Directive Discussion Advance Directive Discussion [facility] Start: 06-18-2024 Medicare Advantage Annual Wellness Visit Medicare Advantage Annual Wellness Visit [facility] Start: 05-14-2024 BP Controlled (<130/80) BP Controlle d (<130/80) [facility] Start: 04-02-2024 End: 04-02-2024 Patient encounter procedure 04/02/2024 8:40 AM EDT Office Visit Internal Medicine [facility] [address] [place], [place] [id number] India Sams MD [address] [place] [address] Yearly/6 month follow up [facility] Comment on above: Yearly/6 month follo w up Start: 03-27-2024 3 comp foot exam completed Diabetic Foot Exam [facility] Start: 03-27-2024 Annual PCP Team Strip Polisher freedom Disease Visit Annual PCP Team Chronic Disease Visit [facility] Start: 03-27-2024 Covid-19 Vaccine () Covid-19 Vaccine () [facility] Comment on above: Postponed from 02/16 (Declined at this time) Start: 03-27-2024 Diabetic foot examination Diabetic Foot Exam [facility] Start: 03-27-2024 Hepatitis B screening Urine Al bumin:Creatinine Ratio [facility] Start: 03-27-2024 Hepatitis B Vaccine (1 of 3 - Risk 3-dose series) Hepatitis B Vaccine (1 of 3 - Risk 3-dose series) [facility] Comment on above: Postponed from 08/10 (Declined at this time) Start: 03-22-2024 Hepatitis B surface antibody level LDL Cholesterol [facility] Start: 03-03-2024 End: 06-02-2024 Comprehensive metabolic 2000 panel - Serum or Plasma COMPREHENSIVE METABOLIC PANEL Lab Routine Controlled type 2 diabetes mellitus without complication, without long-term current use of insulin (HCC) Essential hypertension Encounter for long-term current use of medication Expected: 03/03/2024 (Approximate), Expires: 06/02/[address] [facility] Comment on above: Expected: 03/03/2024 (Approximate), Expires: 06/02/2024 Start: 03-03-2024 End: 06-02-2024 Hemoglobin A1c in Blood HEMOGLOBIN A1C Lab Routine Controlled type 2 diabetes mellitus without complication, without long-term current use of insulin (HCC) Encounter for long-term current use of medication Expected: 03/03/2024 (Approximate), Expires: 06/02/2024 [facility] Work Phone: Comment on above: Expected: 03/03/2024 (Approximate), Expires: 06/02/2024 Start: 03-03-2024 End: 06-02-2024 Microalbumin/Creatinine [Mass Ratio] in Urine ALBUMIN/CREATININE RATIO, URINE Lab Routine Controlled type 2 diabetes mellitus without complication, without long-term current use of insulin (HCC) Encounter for long-term current use of medication Expected: 03/03/2024 (Approximate), Expires: 06/02/[address] [facility] Comment on above: Expected: 03/03/2024 (Approximate), Expires: 06/02/2024 Start: 02-24-2024 Glaucoma screening Dilated Retinal E xam [facility] Start: 02-24-2024 Hepatitis C antibody , confirmatory test Dilated Retinal Exam [facility] Start: 12-29-2023 Hemoglobin A1c measurement HbA1C [facility] Start: 09-26-2023 End: 11-26-2023 CBC panel - Blood by Automated count CBC Lab Routine Controlled type 2 diabetes mellitus without complication, without long-term current use of insulin (HCC) Essential hypertension Expected: 09/26/2023 (Approximate), Expires: 11/26/2023 [facility] Work Phone: Comment on above: Expected: 09/26/2023 (Approximate), Expires: 11/26/2023 Start: 09-26-2023 End: 11-26-2023 Comprehensive metabolic 2000 panel - Serum or Plasma COMP METABOLIC PANEL Lab Routine Controlled type 2 diabetes mellitus without complication, without long-term current use of insulin (HCC) Essential hypertension Expected: 09/26/2023 (Approximate), Expires: 11/26/2023 [facility] Work Phone: Comment on above: Expected: 09/26/2023 (Approximate), Expires: 11/26/2023 Start: 09-26-2023 End: 11-26-2023 Hemoglobin A1c in Blood HGB A1C Lab Routine Controlled type 2 diabetes mellitus without complication, without long-term current use of insulin (HCC) Expected: 09/26/2023 (Approximate), Expires: 11/26/2023 [facility] Work Phone: Comment on above: Expected: 09/26/2023 (Approximate), Expires: 11/26/2023 Start: 09-26-2023 End: 11-26-2023 Lipid 1996 panel - Serum or Plasma LIPID PANEL BASIC Lab Routine Controlled type 2 diabetes mellitus without complication, without long-term current use of insulin (HCC) Mixed hyperlipidemia Expected: 09/26/2023 (Approximate), Expires: 11/26/2023 [facility] Work Phone: Comment on above: Expected: 09/26/2023 (Approximate), Expires: 11/26/2023 Start: 09-21-2023 Hemoglobin A1c measurement HbA1C [facility] Start: 09-21-2023 Hemoglobin A1c/Hemoglobin.total in Blood HbA1C [facility] Start: 09-16-2023 ANNUAL PCP TEAM SENIOR QA ENGINEER FREEDOM DISEASE VISIT ANNUAL PCP TEAM CHRONIC DISEASE VISIT [facility] Start: 09-16-2023 BP CONTROLLED (<130/80) BP CONTROLLE D (<130/80) [facility] Start: 09-12-2023 Hepatitis B surface antibody level LDL CHOLESTEROL [facility] Start: 06-18-2023 Behavioral Health Screening Behavioral Health Screening [facility] Start: 06-17-2023 DEPRESSION ASSESSMENT DEPRESSION ASS ESSMENT [facility] Comment on above: Postponed from 06/18 (Declined at this time) Start: 04-07-2023 [facility] Start: 03-17-2023 End: 05-17-2023 CBC panel - Blood by Automated count CBC Lab Routine Essential hypertension Expected: 03/17/2023 (Approximate), Expires: 05/17/2023 [facility] Work Phone: Comment on above: Expected: 03/17/2023 (Approximate), Expires: 05/17/2023 Start: 03-17-2023 End: 05-17-2023 Comprehensive metabolic 2000 panel - Serum or Plasma COMP METABOLIC PANEL Lab Routine Essential hypertension Controlled type 2 diabetes mellitus without complication, without long-term current use of insulin (HCC) Expected: 03/17/2023 (Approximate), Expires: 05/17/2023 [facility] Work Phone: Comment on above: Expected: 03/17/2023 (Approximate), Expires: 05/17/2023 Start: 03-17-2023 End: 05-17-2023 Hemoglobin A1c in Blood HGB A1C Lab Routine Controlled type 2 diabetes mellitus without complication, without long-term current use of insulin (HCC) Expected: 03/17/2023 (Approximate), Expires: 05/17/2023 [facility] Work Phone: Comment on above: Expected: 03/17/2023 (Approximate), Expires: 05/17/2023 Start: 03-17-2023 End: 05-17-2023 Lipid 1996 panel - Serum or Plasma LIPID PANEL BASIC Lab Routine Mixed hyperlipidemia Expected: 03/17/2023 (Approximate), Expires: 05/17/2023 [facility] Work Phone: Comment on above: Expected: 03/17/2023 (Approximate), Expires: 05/17/2023 Start: 03-17-2023 End: 05-17-2023 Urinalysis complete panel - Urine URINALYSIS, WITH MICROSCOPIC Lab Routine Controlled type 2 diabetes mellitus without complication, without long-term current use of insulin (HCC) Expected: 03/17/2023 (Approximate), Expires: 05/17/2023 [facility] Work Phone: Comment on above: Expected: 03/17/2023 (Approximate), Expires: 05/17/2023 Start: 03-14-2023 Hemoglobin A1c/Hemoglobin.total in Blood HBA1C [facility] Start: 02-23-2023 Hepatitis C antibody , confirmatory test DILATED RETINAL EXAM [facility] Start: 02-16-2023 Influenza vaccination INFLUENZA (#1) [facility] Start: 01-23-2023 3 comp foot exam completed DIABETIC FOOT EXAM [facility] Start: 01-23-2023 ANNUAL PCP TEAM SENIOR QA ENGINEER FREEDOM DISEASE VISIT ANNUAL PCP TEAM CHRONIC DISEASE VISIT [facility] Start: 01-23-2023 COVID-19 VACCINE (4 - Booster for Pfizer series) COVID-19 VACCINE (4 - Booster for Pfizer series) [facility] Comment on above: Postponed from 08/19 (Declined at this time) Postponed from 06/16 (Declined at this time) Start: 01-23-2023 COVID-19 VACCINE (4 - Pfizer series) COVID-19 VACCINE (4 - Pfizer series) [facility] Comment on above: Postponed from 06/16 (Declined at this time) Start: 01-17-2023 Hepatitis B screening URINE AL BUMIN:CREATININE RATIO [facility] Start: 01-17-2023 Hepatitis B surface antibody level LDL CHOLESTEROL [facility] Start: 07-25-2022 Adult depression screening assessment DEPRESSION SCREENING [facility] Start: 07-25-2022 ANNUAL PCP TEAM SENIOR QA ENGINEER FREEDOM DISEASE VISIT ANNUAL PCP TEAM CHRONIC DISEASE VISIT [facility] Start: 07-25-2022 BP CONTROLLED (<130/80) BP CONTROLLE D (<130/80) [facility] Start: 07-19-2022 Hepatitis B surface antibody level LDL CHOLESTEROL [facility] Start: 06-08-2022 Patient discharge [facility] Work Phone: Start: 04-19-2022 Hemoglobin A1c/Hemoglobin.total in Blood HBA1C [facility] Start: 02-16-2022 Influenza vaccination INFLUENZA (#1) [facility] Start: 01-31-2022 Hepatitis C antibody , confirmatory test DILATED RETINAL EXAM [facility] Start: 01-22-2022 End: 07-25-2022 ALBUMIN/CREAT RATIO RND UR ALBUMIN/CREAT RATIO RND UR Lab Routine Controlled type 2 diabetes mellitus without complication, without long-term current use of insulin (HCC) Expected: 01/22/2022, Expires: 07/25/2022 [facility] Work Phone: Comment on above: Expected: 01/22/2022 , Expires: 07/25/2022 Start: 01-22-2022 End: 07-25-2022 CBC panel - Blood by Automated count CBC Lab Routine Essential hypertension Expected: 01/22/2022, Expires: 07/25/2022 [facility] Work Phone: Comment on above: Expected: 01/22/2022 , Expires: 07/25/2022 Start: 01-22-2022 End: 07-25-2022 Comprehensive metabolic 2000 panel - Serum or Plasma COMP METABOLIC PANEL Lab Routine Essential hypertension Controlled type 2 diabetes mellitus without complication, without long-term current use of insulin (HCC) Expected: 01/22/2022, Expires: 07/25/2022 [facility] Work Phone: Comment on above: Expected: 01/22/2022 , Expires: 07/25/2022 Start: 01-22-2022 End: 07-25-2022 Hemoglobin A1c/Hemoglobin.total in Blood HGB A1C Lab Routine Controlled type 2 diabetes mellitus without complication, without long-term current use of insulin (HCC) Expected: 01/22/2022, Expires: 07/25/2022 [facility] Work Phone: Comment on above: Expected: 01/22/2022 , Expires: 07/25/2022 Start: 01-22-2022 End: 07-25-2022 LIPID PANEL BASIC LIPID PANEL BASIC Lab Routine Mixed hyperlipidemia Expected: 01/22/2022, Expires: 07/25/2022 [facility] Work Phone: Comment on above: Expected: 01/22/2022 , Expires: 07/25/2022 Start: 01-16-2022 Hemoglobin A1c/Hemoglobin.total in Blood HBA1C [facility] Start: 01-05-2022 3 comp foot exam completed DIABETIC FOOT EXAM [facility] Start: 12-31-2021 Hepatitis B screening URINE AL BUMIN:CREATININE RATIO [facility] Start: 06-18-2021 ADVANCE DIRECTIVE DISCUSSION ADVANCE DIRECTIVE DISCUSSION [facility] Start: 06-18-2021 DEPRESSION ASSESSMENT DEPRESSION ASS ESSMENT [facility] Start: 06-16-2021 COVID-19 VACCINE (4 - Pfizer series) COVID-19 VACCINE (4 - Pfizer series) [facility] Start: 10-14-2014 FECAL OCCULT BLOOD FECAL OCCULT BLOO D [facility] Start: 10-14-2014 Screening for malign ant neoplasm of colon Fecal Occult Blood [facility] Start: 2010 RSV Vaccine (1 1-d ose 60+ series) RSV Vaccine (1 - 1-dose 60+ series) [facility] Start: 1995 COLOGUARD (FIT-DNA) COLOGUARD (FIT-D NA) [facility] Start: [address] COLONOGRAPHY [facility] Start: 1995 Screening for malign ant neoplasm of colon [facility] Start: 1995 SIGMOIDOSCOPY SIGMOIDOSCOPY [facility] Patient Education ED Kidney Stone w/ Coli c [facility] Work Phone: Patient referral [facility] Work Phone: [facility] Immunizations Immunization Date Immunization Notes Care Provider [facility] 04-02-2024 influenza, high dose seasonal, preservative-free India Sams MD Work Phone: [facility] 04-02-2024 influenza virus vaccine, unspecified formulation India Sams MD Work Phone: [facility] 03-31-2023 influenza (HD-IIV4) vaccine, age 65+ yr, high dose, quadrivalent, PF (FLUZONE HIGH-DOSE) Donya Benites APRN.[facility] Work Phone: [facility] 04-08-2022 influenza, high-dose , quadrivalent vaccine (FLUZONE HIGH DOSE QUADRIVALENT) Immunization [place] Work Phone: [facility] 04-21-2021 COVID-19 vaccine, ag e 12+ yr ([employer] - PURPLE TOP) India Sams MD Work Phone: [facility] 04-09-2021 influenza, high-dose , quadrivalent vaccine (FLUZONE HIGH DOSE QUADRIVALENT) India Sams MD Work Phone: [facility] Work Phone: 01-05-2021 tetanus toxoid, redu tracy diphtheria toxoid, and acellular pertussis vaccine, adsorbed India Sams MD Work Phone: [facility] Work Phone: 09-06-2020 COVID-19 vaccine, ag e 12+ yr (PFIZER-BIONTECH - PURPLE TOP) India Sams MD Work Phone: [facility] 08-12-2020 COVID-19 vaccine, ag e 12+ yr (PFIZER-BIONTECH - PURPLE TOP) India Sams MD Work Phone: [facility] 06-28-2020 zoster vaccine recombinant India Sams MD Work Phone: [facility] 04-10-2020 influenza, high-dose , quadrivalent vaccine (FLUZONE HIGH DOSE QUADRIVALENT) India Sams MD Work Phone: [facility] 03-08-2020 zoster vaccine recombinant India Sams MD Work Phone: [facility] 04-01-2019 influenza, high dose seasonal, preservative-free India Sams MD Work Phone: [facility] 03-28-2018 influenza, high dose seasonal, preservative-free India Sams MD Work Phone: [facility] 03-28-2018 pneumococcal polysaccharide vaccine, 23 valent India Sams MD Work Phone: [facility] Work Phone: 04-07-2017 influenza, high dose seasonal, preservative-free India Sams MD Work Phone: [facility] 05-08-2016 influenza, high dose seasonal, preservative-free India Sams MD Work Phone: [facility] 08-18-2015 pneumococcal conjuga te vaccine, 13 valent India Sams MD Work Phone: [facility] 03-17-2015 influenza, injectabl e, quadrivalent, contains preservative India Sams MD Work Phone: [facility] 03-25-2014 influenza, seasonal, injectable India Sams MD Work Phone: [facility] 03-14-2013 influenza virus vaccine, unspecified formulation India Sams MD Work Phone: [facility] 01-03-2013 pneumococcal polysaccharide vaccine, 23 valent India Sams MD Work Phone: [facility] 01-03-2013 zoster vaccine, live India srinivasan MD Work Phone: [facility] 03-16-2012 influenza virus vaccine, unspecified formulation India Sams MD Work Phone: [facility] Work Phone: 04-08-2011 influenza virus vaccine, unspecified formulation India Sams MD Work Phone: [facility] Work Phone: 04-26-2010 influenza virus vaccine, unspecified formulation India Sams MD Work Phone: [facility] Work Phone: 03-18-2009 influenza virus vaccine, unspecified formulation India Sams MD Work Phone: [facility] Work Phone: 02-28-2008 tetanus toxoid, redu tracy diphtheria toxoid, and acellular pertussis vaccine, adsorbed India Sams MD Work Phone: [facility] 03-18-2007 influenza virus vaccine, unspecified formulation India Sams MD Work Phone: [facility] Work Phone: 06-18-1993 pneumococcal polysaccharide vaccine, 23 valent India Sams MD Work Phone: [facility] Work Phone: Payers Date Payer Category Payer Self-pay [id number] 2020 Medicare HUMANA MEDICARE HUMANA MEDICARE PPO [id number] 2020-[facility] [phone] [place] [address] PPO [id number] 2020 Medicare HUMANA MEDICARE HUMANA MEDICARE PPO [id number] 2020-Present [phone] [place] [address] PPO [id number] 2020 Medicare (Managed Care) HUMANA M EDICARE [id number] 2020 Medicare [id number] 2013 Medicare [id number] 1950 Unknown [id number] 1950 Unknown [id number] Medicare [id number] Unknown [facility] [id number] Unknown [id number] Unknown [id number] Social History Date Type Detail Facility Start: 01-23-2022 End: 04-02-2024 Tobacco smoking status NHIS Ex-smoker [facility] Work Phone: Start: 04-07-1972 End: 04-07-1987 History of tobacco use Current smoker [facility] Start: 04-07-1972 End: 04-07-1987 History of tobacco use Cigarette Smoker [facility] Start: 07-25-2021 End: 09-29-2024 Alcohol intake Current drinker of alcohol (finding) [facility] Start: 05-25-2020 End: 09-14-2022 History SDOH Alcohol Frequency [address] [facility] Start: 05-25-2020 History SDOH Alcohol Std Drinks [address] [facility] Start: 11-25-2013 History SDOH Alcohol Comment rarely [facility] Start: 05-25-2020 End: 09-14-2022 History SDOH Social Connections Phone [address] [facility] Start: 05-25-2020 End: 09-14-2022 History SDOH Social Connections Living [address] [facility] Start: 05-25-2020 History SDOH Physical Activity DPW [address] [facility] Start: 05-25-2020 End: 09-14-2022 History SDOH Financial [address] [facility] Start: 05-25-[address] [facility] Start: 1950 Sex Assigned At Male [facility] Start: 06-25-2021 End: 07-25-2021 Exposure to SARS-CoV-2 (event) Not sure [facility] Start: 01-23-2022 End: 03-31-2023 Cigarettes smoked current (pack per day) - Reported [address] [facility] Start: 01-23-2022 End: 04-02-2024 Tobacco use and exposure Smokeless tobacco non-user [facility] Start: 06-05-2022 End: 04-07-2023 Tobacco smoking status NHIS Unknown if ever smoked [facility] Start: 09-14-2022 History SDOH Alcohol Std Drinks [address] [facility] Start: 09-14-2022 End: 03-31-2023 Social connection and isolation panel [facility] Do you belong to any clubs or organizations such as episcopal groups, unions, fraternal or athletic groups, or school groups? Yes [facility] Are you now , , , , never or living with a partner? [facility] How often to you hav e a drink containing alcohol? Never [facility] Start: 05-19-2012 How many standard drinks containing alcohol do you have on a typical day? Patient does not drink [facility] Do you feel stress - tense, restless, nervous, or anxious, or unable to sleep at night because your mind is troubled all the time - these days [OSQ] Not at all [facility] (I/We) worried wheth er (my/our) food would run out before (I/we) got money to buy more. Never true [facility] In the past 12 month s, was there a time when you were not able to pay the mortgage or rent on time? No [facility] Start: 05-25-2020 Gender identity Identifies as male gender (finding) [facility] Start: 05-25-2020 Sexual orientation Heterosexual (finding) [facility] Medical Equipment Procedure Code Equipment Code Equipment Original Text Equipment Identifier Dates ORIF, ankle TIGHTROPE, XP FDA Start: 06-08-2022 ORIF, ankle TIGHTROPE, XP FDA Start: 06-08-2022 ORIF, ankle TWO HOLE PLATE FDA Start: 06-08-2022 Start: 12-21-2015 End: 07-25-2021 Comment on above: Test glucose once ev angelica 3 days or so Test blood sugar(s) one time daily. Dx: Type 2 DM - Controlled E11.9 Insulin: No Goals Date Patient Goal Desired Activity /State Functional Status Date Assessment Result Facility 10-14-2014 Are you deaf, or do you have serious difficulty hearing No 10/14/2014 10:06 AM [facility] 10-14-2014 Are you blind, or do you have serious difficulty seeing, even when wearing glasses No 10/14/2014 10:06 AM Isiah Thurston [facility] 10-14-2014 Do you have serious difficulty walking or climbing stairs No 10/14/2014 10:06 AM Isiah Thurston [facility] 10-14-2014 Do you have difficul ty dressing or bathing No 10/14/2014 10:06 AM Isiah Thurston [facility] 10-14-2014 Because of a physica l, mental, or emotional condition, do you have difficulty doing errands alone such as visiting a physician's office or shopping No 10/14/2014 10:06 AM Isiah Thurston [facility] Mental Status Date Assessment Result Facility 06-08-2022 Cognitive function Voice/Name [facility] Work Phone: 10-14-2014 Because of a physica l, mental, or emotional condition, do you have serious difficulty concentrating, remembering, or making decisions No 10/14/2014 10:06 AM EDT Isiah Graham [facility] Clinical Notes 09-11-2016 to 01-27-2025 Telephone Encounter - Dione Aaron LPN - 01/27/2025 1:47 PM EDTTelephone Encounter - Dione Aaron LPN - 01/27/2025 1:47 PM EDTCMarium john APRN.CNP - 09/29/2024 7:09 AM EDT Note Date & Type Note Facility 01-27-2025 Telephone encounter Note Patient has been identified by name and date of : Yes Patient phones for refill(s): Requested Prescriptions Pending Prescriptions Disp Refills carvedilol (COREG) 6.25 mg tablet 180 tablet 3 Sig: Take 1 tablet by mouth two times a day. Date of last office visit in primary care: 09/29/2024 Date of next office visit in primary care: 04/07/2025 Please advise. Thank you. Dione Aaron LPN. [facility] 01-27-2025 Miscellaneous Notes Patient has been identified by name and date of : Yes Patient phones for refill(s): Requested Prescriptions Pending Prescriptions Disp Refills carvedilol (COREG) 6.25 mg tablet 180 tablet 3 Sig: Take 1 tablet by mouth two times a day. Date of last office visit in primary care: 09/29/2024 Date of next office visit in primary care: 04/07/2025 Please advise. Thank you. Dione Aaron LPN. documented in this encounter [facility] 11-24-2024 Telephone encounter Note The following approved medication requests have been transmitted electronically. Requested Prescriptions Pending Prescriptions Disp Refills atorvastatin (LIPITOR) 20 mg tablet 90 tablet 3 Sig: Take 1 tablet by mouth once daily. India Sams MD [facility] 11-24-2024 Miscellaneous Notes The following approved medication requests have been transmitted electronically. Requested Prescriptions Pending Prescriptions Disp Refills atorvastatin (LIPITOR) 20 mg tablet 90 tablet 3 Sig: Take 1 tablet by mouth once daily. India Sams MD Prescription Refill Information The patient has been identified by name and date of : Yes Caregiver verified no other encounters exist for this prescription request: Yes Caregiver confirmed with patient/requestor that no other refills are due, in the near future, with this provider at this time: Yes The last office visit in the department: 09/29/24 Does the patient have a future office visit with this provider/department: Yes 04/07/25 Requested Prescriptions Pending Prescriptions Disp Refills atorvastatin (LIPITOR) 20 mg tablet 90 tablet 3 Sig: Take 1 tablet by mouth once daily. April Masters LPN November 24, 2024 11:33 AM documented in this encounter [facility] 11-24-2024 Telephone encounter Note Prescription Refill Information The patient has been identified by name and date of : Yes Caregiver verified no other encounters exist for this prescription request: Yes Caregiver confirmed with patient/requestor that no other refills are due, in the near future, with this provider at this time: Yes The last office visit in the department: 09/29/24 Does the patient have a future office visit with this provider/department: Yes 04/07/25 Requested Prescriptions Pending Prescriptions Disp Refills atorvastatin (LIPITOR) 20 mg tablet 90 tablet 3 Sig: Take 1 tablet by mouth once daily. April Masters LPN November 24, 2024 11:[address] [facility] 10-30-2024 Telephone encounter Note Spoke to Jose D, pharmacy kept sending the medication, Patient had an overstock, now he is needing new prescription. Patient has been identified by name and date of : Yes Patient phones for refill(s): Requested Prescriptions Pending Prescriptions Disp Refills metFORMIN ER (GLUCOPHAGE XR) 500 mg 24 hr tablet 270 tablet 3 Sig: Take 1 tablet by mouth three times a day before meals. Date of last office visit in primary care: 09/29/2024 Date of next office visit in primary care: 04/07/2025 Please advise. Thank you. Dione Aaron LPN. [facility] 10-30-2024 Miscellaneous Notes Spoke to Jose D, pharmacy kept sending the medication, Patient had an overstock, now he is needing new prescription. Patient has been identified by name and date of : Yes Patient phones for refill(s): Requested Prescriptions Pending Prescriptions Disp Refills metFORMIN ER (GLUCOPHAGE XR) 500 mg 24 hr tablet 270 tablet 3 Sig: Take 1 tablet by mouth three times a day before meals. Date of last office visit in primary care: 09/29/2024 Date of next office visit in primary care: 04/07/2025 Please advise. Thank you. Dione Aaron LPN. documented in this encounter [facility] 09-29-2024 Note HNO ID: [id number] Author: MARIUM VALERIO APRN.PACKING AND STAMPING MACHINE OPERATOR Service: ? Author Type: Nurse Practitioner Type: Progress Notes Filed: 09/29/2024 07:34 Note Text: SUBJECTIVE Jose D Roman is a 74 year old male here today for a check up on his medical problems. Chief Complaint Patient presents with: F/U 6 months HPI Jose D is a 74 year old male who presents for follow-up for hypertension. They are here today for a recheck of blood pressure. Blood pressure appears to be stable. Denies any symptoms referable to elevated blood pressure. No reports of headache, chest pain, palpitations, dyspnea and peripheral edema. Tolerating medications well. Jose D Roman is a 74 year old male here today for a check up on his diabetes. He is compliant on taking his medications :Yes No reports of low blood sugar reaction. No reports of urinating, eating, and drinking. Most recent HbA1c tests were: Lab Results Component Value Date HBA1C 7.6 (H) 09/26/2024 HBA1C 8.0 (H) 03/28/2024 HBA1C 8.0 (H) 09/29/2023 Jose D Roman is an 74 year old male is being seen today for a check on hyperlipidemia. Cholesterol, Total (mg/dL) Date Value 09/26/2024 129 09/29/2023 139 07/19/2021 140 12/31/2020 153 HDL Cholesterol (mg/dL) Date Value 09/26/2024 37 09/29/2023 47 07/19/2021 41 12/31/2020 41 LDL Cholesterol (mg/dL) Date Value 09/26/2024 64 09/29/2023 81 07/19/2021 75 12/31/2020 87 Triglyceride (mg/dL) Date Value 09/26/2024 138 09/29/2023 54 07/19/2021 118 12/31/2020 126 His medications were reviewed today and his list is now up to date. Medications Current Outpatient Medications Medication Sig amLODIPine (NORVASC) 10 mg tablet Take 1 tablet by mouth once daily. lisinopril (ZESTRIL) 40 mg tablet Take 1 tablet by mouth once daily. carvedilol (COREG) 6.25 mg tablet Take 1 tablet by mouth two times a day. atorvastatin (LIPITOR) 20 mg tablet Take 1 tablet by mouth once daily. metFORMIN ER (GLUCOPHAGE XR) 500 mg 24 hr tablet Take 1 tablet by mouth three times daily before meals. ibuprofen (MOTRIN) 200 mg tablet May take 2 to 4 pills up to 4 times daily (max 2400 mg per day) cinnamon bark(CINNAMON 500 MG CAP) Take one(1) tablet daily. aspirin(ECOTRIN LOW STRENGTH 81 MG TAB) Take one(1) tablet daily. ascorbic acid(VITAMIN C 500 MG TAB) Take one(1) tablet daily. No current facility-administered medications for this visit. 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 Respiratory: Negative. Cardiovascular: Negative. OBJECTIVE BP 128/60 Pulse 69 Wt 187 lb 2.7 oz (84.9kg) SpO2 96% Physical Exam Vitals and nursing note reviewed. Constitutional: General: He is awake. He is not in acute distress. Appearance: Normal appearance. He is well-developed and well-groomed. He is not ill-appearing, toxic-appearing or diaphoretic. HENT: Head: Normocephalic. Right Ear: External ear normal. Left Ear: External ear normal. Nose: Nose normal. Eyes: General: Vision grossly intact. Conjunctiva/sclera: Conjunctivae normal. Pupils: Pupils are equal, round, and reactive to light. Neck: Vascular: No JVD. Trachea: Trachea normal. Cardiovascular: Rate and Rhythm: Normal rate and regular rhythm. Pulses: Normal pulses. Heart sounds: Normal heart sounds. No murmur heard. Pulmonary: Effort: Pulmonary effort is normal. No accessory muscle usage, prolonged expiration or respiratory distress. Breath sounds: Normal breath sounds. Musculoskeletal: Cervical back: Neck supple. Skin: General: Skin is warm and dry. Capillary Refill: Capillary refill takes less than 2 seconds. Neurological: General: No focal deficit present. Mental Status: He is alert and oriented to person, place, and time. Mental status is at baseline. Psychiatric: Attention and Perception: Attention and perception normal. Mood and Affect: Mood and affect normal. Speech: Speech normal. Behavior: Behavior normal. Behavior is cooperative. Thought Content: Thought c (more content not included)... [facility] 09-29-2024 History of Presen t illness Narrative SUBJECTIVE Jose D Roman is a 74 year old male here today for a check up on his medical problems. Chief Complaint Patient presents with: F/U 6 months HPI Jose D is a 74 year old male who presents for follow-up for hypertension. They are here today for a recheck of blood pressure. Blood pressure appears to be stable. Denies any symptoms referable to elevated blood pressure. No reports of headache, chest pain, palpitations, dyspnea and peripheral edema. Tolerating medications well. Jose D Roman is a 74 year old male here today for a check up on his diabetes. He is compliant on taking his medications :Yes No reports of low blood sugar reaction. No reports of urinating, eating, and drinking. Most recent HbA1c tests were: Lab Results Component Value Date HBA1C 7.6 (H) 09/26/2024 HBA1C 8.0 (H) 03/28/2024 HBA1C 8.0 (H) 09/29/2023 Jose D Roman is an 74 year old male is being seen today for a check on hyperlipidemia. Cholesterol, Total (mg/dL) Date Value 09/26/2024 129 09/29/2023 139 07/19/2021 140 12/31/2020 153 HDL Cholesterol (mg/dL) Date Value 09/26/2024 37 09/29/2023 47 07/19/2021 41 12/31/2020 41 LDL Cholesterol (mg/dL) Date Value 09/26/2024 64 09/29/2023 81 07/19/2021 75 12/31/2020 87 Triglyceride (mg/dL) Date Value 09/26/2024 138 09/29/2023 54 07/19/2021 118 12/31/2020 126 His medications were reviewed today and his list is now up to date. Medications Current Outpatient Medications Medication Sig amLODIPine (NORVASC) 10 mg tablet Take 1 tablet by mouth once daily. lisinopril (ZESTRIL) 40 mg tablet Take 1 tablet by mouth once daily. carvedilol (COREG) 6.25 mg tablet Take 1 tablet by mouth two times a day. atorvastatin (LIPITOR) 20 mg tablet Take 1 tablet by mouth once daily. metFORMIN ER (GLUCOPHAGE XR) 500 mg 24 hr tablet Take 1 tablet by mouth three times daily before meals. ibuprofen (MOTRIN) 200 mg tablet May take 2 to 4 pills up to 4 times daily (max 2400 mg per day) cinnamon bark(CINNAMON 500 MG CAP) Take one(1) tablet daily. aspirin(ECOTRIN LOW STRENGTH 81 MG TAB) Take one(1) tablet daily. ascorbic acid(VITAMIN C 500 MG TAB) Take one(1) tablet daily. No current facility-administered medications for this visit. 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 Respiratory: Negative. Cardiovascular: Negative. OBJECTIVE BP 128/60 Pulse 69 Wt 187 lb 2.7 oz (84.9kg) SpO2 96% Physical Exam Vitals and nursing note reviewed. Constitutional: General: He is awake. He is not in acute distress. Appearance: Normal appearance. He is well-developed and well-groomed. He is not ill-appearing, toxic-appearing or diaphoretic. HENT: Head: Normocephalic. Right Ear: External ear normal. Left Ear: External ear normal. Nose: Nose normal. Eyes: General: Vision grossly intact. Conjunctiva/sclera: Conjunctivae normal. Pupils: Pupils are equal, round, and reactive to light. Neck: Vascular: No JVD. Trachea: Trachea normal. Cardiovascular: Rate and Rhythm: Normal rate and regular rhythm. Pulses: Normal pulses. Heart sounds: Normal heart sounds. No murmur heard. Pulmonary: Effort: Pulmonary effort is normal. No accessory muscle usage, prolonged expiration or respiratory distress. Breath sounds: Normal breath sounds. Musculoskeletal: Cervical back: Neck supple. Skin: General: Skin is warm and dry. Capillary Refill: Capillary refill takes less than 2 seconds. Neurological: General: No focal deficit present. Mental Status: He is alert and oriented to person, place, and time. Mental status is at baseline. Psychiatric: Attention and Perception: Attention and perception normal. Mood and Affect: Mood and affect normal. Speech: Speech normal. Behavior: Behavior normal. Behavior is cooperative. Thought Content: Thought content normal. Cognition and Memory: Cognition and memory normal. Judgment: Judgment normal. ASSESSMENT/PLAN: 1. Essential hypertension - ICD9: 401.9, ICD10: I10 (primary diagnosis) - Controlled - Continue current medications - Recommend home blood pressure monitoring, to bring results to next visit - Encouraged sodium restriction, DASH or Mediterranean diet - Recommend regular aerobic exercise - COMPREHENSIVE METABOLIC PANEL 2. Controlled type 2 diabetes mellitus without complication, without long-term current use of insulin (HCC) - ICD9: 250.00, ICD10: E11.9 - Improving control - Continue current medications - Counseled on healthy diet and regular exercise - Discussed need for and benefit of weight loss. BMI 29.03 kg/(m^2) - HEMOGLOBIN A1C - ALBUMIN/CREATININE RATIO, URINE 3. Mixed hyperlipidemia - ICD9: 272.2, ICD10: E78.2 - Controlled - Continue current medications - Counseled on healthy diet and regular exercise 4. Hyperlipidemia associated with type 2 diabetes mellitus (HCC) - ICD9: 250.80, 272.4, ICD10: E11.69, E78.5 - Controlled - Continue current medications - Counseled on healthy diet and regular exercise - Discussed need for and benefit of weight loss. BMI 29.03 kg/(m^2) - Controlled - Continue current medications - Counseled on healthy diet and regular exercise - ALBUMIN/CREATININE RATIO, URINE 5. Encounter for therapeutic drug monitoring - ICD9: V58.83, ICD10: Z51.81 - COMPLETE BLOOD COUNT AND DIFFERENTIAL - COMPREHENSIVE METABOLIC PANEL Portions of this note have been entered by ancillary staff. I have reviewed and when necessary edited, so that they are an adequate record of my encounter with this patient Please note that parts of this document were created using voice recognition software and therefore may contain grammatical errors. Patient verbalizes understanding of instructions from today's visit and in agreement with treatment plan. Questions answered. Agrees to call the office if questions, concerns of issues with acute symptoms not improving or if they worsen. See diagnoses and orders for additional plan(s). Allergies and medications were reviewed, list was updated, and refills given if needed. Past medical, surgical, social, and family history reviewed and updated as appropriate. Encouraged proper diet & exercise as well as compliance with taking medications. Age-appropriate health preventative measures were discussed.. Return if symptoms worsen or fail to improve, for Keep next scheduled appointment.. Marium Valerio APRN-IMAN documented in this encounter [facility] 08-05-2024 Telephone encounter Note The following approved medication requests have been transmitted electronically. Requested Prescriptions Pending Prescriptions Disp Refills amLODIPine (NORVASC) 10 mg tablet 90 tablet 3 Sig: Take 1 tablet by mouth once daily. lisinopril (ZESTRIL) 40 mg tablet 90 tablet 3 Sig: Take 1 tablet by mouth once daily. India Sams MD [facility] 08-05-2024 Miscellaneous Notes The following approved medication requests have been transmitted electronically. Requested Prescriptions Pending Prescriptions Disp Refills amLODIPine (NORVASC) 10 mg tablet 90 tablet 3 Sig: Take 1 tablet by mouth once daily. lisinopril (ZESTRIL) 40 mg tablet 90 tablet 3 Sig: Take 1 tablet by mouth once daily. India Sams MD Patient has been identified by name and date of : Yes Patient phones for refill(s): Requested Prescriptions Pending Prescriptions Disp Refills amLODIPine (NORVASC) 10 mg tablet 90 tablet 3 Sig: Take 1 tablet by mouth once daily. lisinopril (ZESTRIL) 40 mg tablet 90 tablet 3 Sig: Take 1 tablet by mouth once daily. Date of last office visit in primary care: 04/02/2024 Date of next office visit in primary care: 10/01/2024 Please advise. Thank you. Dione Aaron LPN. documented in this encounter [facility] 08-04-2024 Telephone encounter Note Patient has been identified by name and date of : Yes Patient phones for refill(s): Requested Prescriptions Pending Prescriptions Disp Refills amLODIPine (NORVASC) 10 mg tablet 90 tablet 3 Sig: Take 1 tablet by mouth once daily. lisinopril (ZESTRIL) 40 mg tablet 90 tablet 3 Sig: Take 1 tablet by mouth once daily. Date of last office visit in primary care: 04/02/2024 Date of next office visit in primary care: 10/01/2024 Please advise. Thank you. Dione Aaron LPN. [facility] 07-31-2024 Note HNO ID: [id number] Author: ?, ?, ? Service: ? Author Type: ? Type: Progress Notes Filed: 08/06/2024 09:50 Note Text: Jose D Roman is identified through a medication adherence outreach initiative based on pharmacy claims data from [employer] (insurer) for SUPA medication(s) and Non-insulin DM medication(s) Patient is reviewed 07/31/24 due to medication adherence concerns with the following medications (name, strength, sig): Metformin ER 500mg 1 tab three times daily, Lisinopril 40mg 1 tab daily . Atorvastatin 20mg 1 tab daily Per data/report, last fill date and days supply: Metformin ER due 12/30/23, Lisinopril due 11/05/23, Atorvastatin due 01/13/24 Per reconcile dispense, last fill date and days supply: Metformin ER 09/15/23 for 90 ds, Lisinopril 08/08/23 for 90 ds , Atorvastatin 09/29/23 for 90 ds Per call to pharmacy, last picked up date and days supply: n/a Contacted patient: No answer; left generic VM, MyChart Any need for new prescription (I.e. out of refills on most recent prescription) YES/NO/Active: Yes Outcome of review/outreach: (choose outcome source and status) - Called pt had to [facility], [facility] 04/02/24 The patient has a supply of medications, including metformin, that will last until next summer. I have been prescribed an abundance of all of my meds. This was do to them being on auto refill and me not trusting the [place] Mail. I will be renewing a few prescriptions in a week or so. So thank you for your concern. Jose D [facility] [employer] History of Presen t illness Narrative Jose D Roman is identified through a medication adherence outreach initiative based on pharmacy claims data from [employer] (ins[employer]) for SUPA medication(s) and Non-insulin DM medication(s) Patient is reviewed 07/31/24 due to medication adherence concerns with the following medications (name, strength, sig): Metformin ER 500mg 1 tab three times daily, Lisinopril 40mg 1 tab daily . Atorvastatin 20mg 1 tab daily Per data/report, last fill date and days supply: Metformin ER due 12/30/23, Lisinopril due 11/05/23, Atorvastatin due 01/13/24 Per reconcile dispense, last fill date and days supply: Metformin ER 09/15/23 for 90 ds, Lisinopril 08/08/23 for 90 ds , Atorvastatin 09/29/23 for 90 ds Per call to pharmacy, last picked up date and days supply: n/a Contacted patient: No answer; left generic VM, MyChart Any need for new prescription (I.e. out of refills on most recent prescription) YES/NO/Active: Yes Outcome of review/outreach: (choose outcome source and status) - Called pt had to [facility], Sent [facility] 04/02/24 The patient has a supply of medications, including metformin, that will last until next summer. Mary [employer] documented in this encounter [facility] 07-31-2024 Note Patient Outreach ( POHE) JOSE D ROMAN ([id number]) 1950 M Date Time Provider Department 07/31/24 [place] SAMS During your visit today, we recorded the following information about you: Mary Martin 08/06/2024 9:50 AM Addendum Jose D Roman is identified through a medication adherence outreach initiative based on pharmacy claims data from [employer] (ins[employer]) for SUPA medication(s) and Non-insulin DM medication(s) Patient is reviewed 07/31/24 due to medication adherence concerns with the following medications (name, strength, sig): Metformin ER 500mg 1 tab three times daily, Lisinopril 40mg 1 tab daily . Atorvastatin 20mg 1 tab daily Per data/report, last fill date and days supply: Metformin ER due 12/30/23, Lisinopril due 11/05/23, Atorvastatin due 01/13/24 Per reconcile dispense, last fill date and days supply: Metformin ER 09/15/23 for 90 ds, Lisinopril 08/08/23 for 90 ds , Atorvastatin 09/29/23 for 90 ds Per call to pharmacy, last picked up date and days supply: n/a Contacted patient: No answer; left generic VM, MyChart Any need for new prescription (I.e. out of refills on most recent prescription) YES/NO/Active: Yes Outcome of review/outreach: (choose outcome source and status) - Called pt had to [facility], [facility] 04/02/24 The patient has a supply of medications, including metformin, that will last until next summer. I have been prescribed an abundance of all of my meds. This was do to them being on auto refill and me not trusting the [place] Mail. I will be renewing a few prescriptions in a week or so. So thank you for your concern. Jose D Ingrammatilde [employer] Allergies As of Date: 07/31/2024 (No Known Allergies) Date Reviewed: 04/02/2024 Reviewed by: Trinity Alejandre LPN - Fully Assessed Reason for Visit: Allied Health Visit [5] Cmt: Medication Adherence Outreach Prescriptions as of 08/06/2024 - amLODIPine (NORVASC) 10 mg tablet Take 1 tablet by mouth once daily. - lisinopril (ZESTRIL) 40 mg tablet Take 1 tablet by mouth once daily. - carvedilol (COREG) 6.25 mg tablet Take 1 tablet by mouth two times a day. - atorvastatin (LIPITOR) 20 mg tablet Take 1 tablet by mouth once daily. - metFORMIN ER (GLUCOPHAGE XR) 500 mg 24 hr tablet Take 1 tablet by mouth three times daily before meals. - ibuprofen (MOTRIN) 200 mg tablet May take 2 to 4 pills up to 4 times daily (max 2400 mg per day) - cinnamon bark(CINNAMON 500 MG CAP) Take one(1) tablet daily. - aspirin(ECOTRIN LOW STRENGTH 81 MG TAB) Take one(1) tablet daily. - ascorbic acid(VITAMIN C 500 MG TAB) Take one(1) tablet daily. 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] 08/13/2007 Other and unspecified hyperlipidemia [E78.5] 08/13/2007 10/06/2013 HYPERGLYCEMIA [R79.89] 08/13/2007 10/06/2013 OVERWEIGHT [E66.9] 08/13/2007 10/06/2013 AAA (abdominal aortic aneurysm) (HCC) [I71.40] 11/11/2013 09/24/2016 Occlusion and stenosis of carotid artery withou*11/19/2013 Umbilical hernia [K42.9] 12/29/2013 Diabetes mellitus type 2, controlled, without c* Hyperlipidemia [E78.5] Essential hypertension [I10] 07/06/2016 Uncontrolled type 2 diabetes mellitus without c*09/11/2016 10/11/2017 Hx of endovascular stent graft for abdominal ao* Plantar fasciitis of left foot [M72.2] 03/28/2018 Encounter Status:Closed by MARY MARTIN on 07/31/24 [facility] 04-02-2024 Instructions India Sams MD - 04/02/2024 8:51 AM EDT - Continue taking your current medications as prescribed. - Maintain your exercise routine of 30 minutes, five days a week. - Follow a healthy diet, aiming to eat healthy foods more than half of the time. Monitor carbohydrate intake, especially bread and potatoes. - Monitor your blood pressure regularly at home. - Keep taking good care of your feet. - Next appointment in 6 months. - Labs scheduled for next appointment, including fasting cholesterol, blood counts, metabolic panel, A1c, and cholesterol panel. Please fast before the appointment. - Flu shot to be administered today. - Annual wellness visit scheduled for next year. Screening schedule The following prevention plan is recommended: Depression Screening Never done Anxiety Screening Never done BP Controlled (<130/80) due on 07/25/2022 Influenza Vaccine(1) due on 02/17/2024 Diabetic Foot Exam due on 03/27/2024 WHAT YOU CAN DO TO PREVENT FALLS Many falls can be prevented. By making some changes, you can lower your chances of falling. Four things YOU can do to prevent falls for you* and your caregiver 1. Begin a regular exercise program Exercise is one of the most important ways to lower your chances of falling. It makes you stronger and helps you feel better. Exercises that improve balance and coordination (like [place]) are the most helpful. Lack of exercise leads to weakness and increases your chances of falling. Ask your doctor or health care provider about the best type of exercise program for you. 2. Have your health care provider review your medicines Have your doctor or pharmacist review all the medicines you take, even [id number] medicines. As you get older, the way medicines work in your body can change. Some medicines, or combinations of medicines, can make you sleepy or dizzy and can cause you to fall. 3. Have your vision checked Have your eyes checked by an eye doctor at least once a year. You may be wearing the wrong glasses or have a condition like glaucoma or cataracts that limits your vision. Poor vision can increase your chances of falling. 4. Make your home safer About half of all falls happen at home. To make your home safer: Remove things you can trip over (like papers, books, clothes, and shoes) from stairs and places where you walk. Remove small throw rugs or use double-sided tape to keep the rugs from slipping. Keep items you use often in cabinets you can reach easily without using a step stool. Have grab bars put in next to your toilet and in the tub or shower. Use non-slip mats in the bathtub and on shower floors. Improve the lighting in your home. As you get older, you need brighter lights to see well. Hang light-weight curtains or shades to reduce glare. Have handrails and lights put in on all staircases. Wear shoes both inside and outside the house. Avoid going barefoot or wearing slippers. For more information, contact: Centers for Disease Control and Prevention www.cdc.gov/injury * This information may not apply if you have certain medical conditions. documented in this encounter [facility] 04-02-2024 History of Presen t illness Narrative Images from the original note were not included. This note was created using Sealed. Subjective Jose D Roman is a 73 year old male. HISTORY Jose D Roman is a 73 year old gentleman here for Medicare Annual Wellness Visit, yearly exam and follow up appointment. The patient is a 73-year-old male with a history of DM, HTN, and cataracts, presenting for a Medicare Annual Wellness Visit. The patient reports receiving a letter from [facility] requesting a urine test, despite having recently completed one. He is unsure why the request was made. He also notes that his A1c remains at 8.0%, and he is actively trying to exercise and watch his carbohydrate intake. He mentions a recent glucose level of 167 mg/dL and is working on maintaining a healthier diet, although he finds it challenging to avoid bread and potatoes. The patient has a supply of medications, including metformin, that will last until next summer. He also takes amlodipine and has noticed slight swelling in his feet, which he attributes to the medication. He denies any discomfort from the swelling but mentions that his socks leave lara on his legs. He also takes wkdh-dym-axjvick medications such as ibuprofen, cinnamon, aspirin, and vitamin C as needed. The patient exercises routinely, achieving 30 minutes of physical activity five days a week, and reports eating healthy foods more than half of the time. He follows up with an eye doctor, Dr. Arias, for cataract management and has two sisters and a brother, none of whom have any known health issues. He denies any issues with plantar fasciitis, stating it is well-controlled. He also denies any symptoms of high blood pressure, such as headaches or vision changes, and reports that his blood pressure readings at home are typically between 127-133 mmHg. He mentions forgetting to take his blood pressure medication this morning. The patient has completed his COVID-19 vaccinations and has a diabetic retinopathy screening scheduled for January 2025. He reports normal bowel movements and wakes up once or twice a night to urinate. He has not yet completed his advanced directives but plans to do so, designating his spouse, Xiao, as his healthcare proxy. PAST MEDICAL HISTORY Diagnosis Date AAA (abdominal aortic aneurysm) (HCC) Diarrhea Diverticulosis of colon (without mention of hemorrhage) horners syndrome left Hx of endovascular stent graft for abdominal aortic aneurysm HYPERLIPIDEMIA NEC/NOS 08/13/2007 Hypertension IFG (impaired fasting glucose) Other and unspecified hyperlipidemia Type II or unspecified type diabetes mellitus without mention of complication, not stated as uncontrolled Changed to IFG after 6 years of HGA1C<6.5 on no meds; HgA1C back up to 8.0 so DM diagnosis again Current Outpatient Medications Medication Sig carvedilol (COREG) 6.25 mg tablet Take 1 tablet by mouth two times a day. atorvastatin (LIPITOR) 20 mg tablet Take 1 tablet by mouth once daily. metFORMIN ER (GLUCOPHAGE XR) 500 mg 24 hr tablet Take 1 tablet by mouth three times daily before meals. amLODIPine (NORVASC) 10 mg tablet Take 1 tablet by mouth once daily. lisinopril (ZESTRIL) 40 mg tablet Take 1 tablet by mouth once daily. ibuprofen (MOTRIN) 200 mg tablet May take 2 to 4 pills up to 4 times daily (max 2400 mg per day) cinnamon bark(CINNAMON 500 MG CAP) Take one(1) tablet daily. aspirin(ECOTRIN LOW STRENGTH 81 MG TAB) Take one(1) tablet daily. ascorbic acid(VITAMIN C 500 MG TAB) Take one(1) tablet daily. No current facility-administered medications for this visit. ALLERGIES No Known Allergies FAMILY HISTORY Problem Relation Age of Onset Diabetes Mother other (Brain Tumor) Father At age 37 Heart Paternal Grandfather Diabetes Sister MR Diabetes Maternal Grandmother other (Melanoma) Sister Social History Tobacco Use Smoking status: Former Current packs/day: 0.00 Average packs/day: 1 pack/day for 15.0 years (15.0 ttl pk-yrs) Types: Cigarettes Start date: 04/07/1972 Quit date: 04/07/1987 Years since quittin.0 Smokeless tobacco: Never Substance Use Topics Alcohol use: Yes Comment: rarely Drug use: No Review of Systems Objective BP 142/72 Pulse 73 Temp 36.2 C (97.2 F) Resp 16 Ht 171 cm (5' 7.32) Wt 85.9 kg (189 lb 6 oz) SpO2 98% BMI 29.38 kg/m Physical Exam Vitals reviewed. Constitutional: Appearance: Normal appearance. HENT: Head: Normocephalic. Right Ear: Tympanic membrane, ear canal and external ear normal. Left Ear: Tympanic membrane, ear canal and external ear normal. Mouth/Throat: Mouth: Mucous membranes are moist. Pharynx: Oropharynx is clear. Eyes: Extraocular Movements: Extraocular movements intact. Conjunctiva/sclera: Conjunctivae normal. Cardiovascular: Rate and Rhythm: Normal rate and regular rhythm. Pulses: Normal pulses. Dorsalis pedis pulses are 2+ on the right side and 2+ on the left side. Posterior tibial pulses are 2+ on the right side and 2+ on the left side. Heart sounds: Normal heart sounds. Comments: No pedal edema Pulmonary: Effort: Pulmonary effort is normal. Breath sounds: Normal breath sounds. Abdominal: General: Abdomen is flat. There is no distension. Palpations: Abdomen is soft. There is no mass. Musculoskeletal: Cervical back: Normal range of motion. Right lower le+ Pitting Edema present. Left lower le+ Pitting Edema present. Feet: Right foot: Protective Sensation: 10 sites tested. 10 sites sensed. Skin integrity: Skin integrity normal. Toenail Condition: Right toenails are normal. Left foot: Protective Sensation: 10 sites tested. 10 sites sensed. Skin integrity: Skin integrity normal. Toenail Condition: Left toenails are normal. Skin: General: Skin is warm and dry. Neurological: General: No focal deficit present. Mental Status: He is alert and oriented to person, place, and time. Psychiatric: Attention and Perception: Attention normal. Mood and Affect: Mood normal. Speech: Speech normal. Behavior: Behavior normal. Thought Content: Thought content normal. Cognition and Memory: Cognition normal. Judgment: Judgment normal. Latest Ref Rng 03/22/2023 03/27/2023 09/29/2023 03/28/2024 Protein, Total 6.3 - 8.0 g/dL 6.4 6.1 (L) 6.6 Albumin 3.9 - 4.9 g/dL 4.2 4.2 4.2 Calcium 8.5 - 10.2 mg/dL 9.2 9.6 9.3 Bilirubin, Total 0.2 - 1.3 mg/dL 0.6 0.6 0.8 Alkaline Phosphatase 38 - 113 U/L 62 65 65 AST 14 - 40 U/L 20 19 16 ALT 10 - 54 U/L 21 17 19 Glucose 74 - 99 mg/dL 147 (H) 175 (H) 167 (H) BUN 9 - 24 mg/dL 16 13 16 Creatinine 0.73 - 1.22 mg/dL 0.81 0.77 0.80 Sodium 136 - 144 mmol/L 144 144 144 Potassium 3.7 - 5.1 mmol/L 3.8 4.0 4.1 Chloride 98 - 107 mmol/L 104 106 (H) 104 CO2 22 - 30 mmol/L 26 27 27 Anion Gap 8 - 15 mmol/L 14 11 13 eGFR >=60 mL/min/1.73m 94 95 93 Color Yellow Yellow Clarity Clear Clear Glucose, Urine Trace, Negative Negative Bilirubin, Urine Negative Negative Ketones, Urine Trace, Negative Trace Specific [place], Ur 1.005 - 1.030 1.020 Hemoglobin/Blood,Ur Negative, Trace Negative pH, Urine 5.0 - 8.0 5.5 Protein, Urine Trace, Negative Trace Urobilinogen Negative Negative Nitrites Negative Negative Leukest Negative, 25 [place]/uL Negative WBC, Urine 0-5 /HPF 0-5 /HPF RBC, Urine 0-3 /HPF 0-3 /HPF Hyaline Cast 0 /LPF 1-3 /LPF ! WBC 3.70 - 11.00 k/uL 7.09 6.24 RBC 4.20 - 6.00 m/uL 4.40 4.50 Hemoglobin 13.0 - 17.0 g/dL 13.7 14.1 Hematocrit 39.0 - 51.0 % 41.0 41.2 MCV 80.0 - 100.0 fL 93.2 91.6 MCH 26.0 - 34.0 pg 31.1 31.3 MCHC 30.5 - 36.0 g/dL 33.4 34.2 RDW-CV 11.5 - 15.0 % 11.9 12.4 Platelet Count 150 - 400 k/uL 192 152 MPV 9.0 - 12.7 fL 12.0 11.6 Absolute nRBC <0.01 k/uL <0.01 <0.01 Cholesterol, Total <200 mg/dL 127 139 Triglyceride <150 mg/dL 128 54 HDL Cholesterol >39 mg/dL 35 (L) 47 Non HDL Cholesterol <130 mg/dL 92 92 Fasting Time hrs 14 12 VLDL Cholesterol <30 mg/dL 26 11 TC:HDL Ratio <5.10 3.63 2.96 LDL Cholesterol <100 mg/dL 66 81 LDL:HDL Ratio <2.54 1.89 1.72 Creatinine, Ur Random (UCRR) 20.0 - 300.0 mg/dL 133.4 93.4 Albumin, Urine Random mg/L <12.0 <12.0 Albumin/Creat Ratio <30 mg/g <9 <13 Hemoglobin A1C 4.3 - 5.6 % 7.8 (H) 8.0 (H) 8.0 (H) Estimated Average Glucose mg/dL 177 183 183 Legend: (H) High ! Abnormal (L) Low Assessment and Plan Jose D Roman is a 73 year old male here for a Medicare wellness visit. Medicare Health Risk Assessment General Health Very good Exercise: Minutes/Day 30 min Exercise: Days/Week 5 days Alcohol: Daily Use Never Alcohol: Drinks/Day Patient does not drink Alcohol: 6 or more drinks Never Feel off balance No Concerns: Teeth/Dentures No Concerns: Sexual function No Troubled by feelings None of the above Frequency: Eating healthy diet More than half the days ADLs requiring help None of the above Safety precautions in home/vehicle Yes Smoke, vape, chews tobacco No Difficulty hearing No Difficulty seeing No Current Providers Specialists: I have reviewed specialist-related care of the patient in the medical record. Outside specialists seen: [facility]. Arias ([facility]) Medical/Family history review Reviewed and updated problem list, medical/surgical/family/social history, medications, and allergies. Opioid use review Opioid Medications (last 90 days) No data to display Anxiety/Depression screening PHQ-9 Score: 0. ANGELIC-7 Score: 0. Recommendation: no further intervention at this time Cognitive screening Mini Cog Score: 5 Cognitive screening reviewed and No further action needed (score 3-5). Functional Observation Was the patient's Timed Up & Go test unsteady or >= 12 seconds? No Advance Care Planning Surrogate decision maker and/or advance care plan documented Will drop off copy of HCDPOA and LW after completed. Surrogate Decision maker is spouse. Measurements BP 142/72 Pulse 73 Temp 36.2 C (97.2 F) Resp 16 Ht 171 cm (5' 7.32) Wt 85.9 kg (189 lb 6 oz) SpO2 98% BMI 29.38 kg/m Last 5 Encounter Wt Readings: Date: Wt: 04/02/2024 85.9 kg (189 lb 6 oz) 10/02/2023 83.5 kg (184 lb) 05/14/2023 84.6 kg (186 lb 6.4 oz) 03/27/2023 85.7 kg (189 lb) 09/15/2022 85.7 kg (189 lb) No waist measurement recorded Estimated body mass index is 29.38 kg/m as calculated from the following: Height as of this encounter: 171 cm (5' 7.32). Weight as of this encounter: 85.9 kg (189 lb 6 oz). Last 5 Encounter BP Readings: Date: BP: 04/02/2024 142/72 10/02/2023 118/64 05/14/2023 122/58 03/27/2023 132/62 09/15/2022 126/68 04/02/24 0838 04/02/24 0913 BP: 142/72 136/62 Pulse: 73 Resp: 16 Temp: 36.2 C (97.2 F) SpO2: 98% Weight: 85.9 kg (189 lb 6 oz) Height: 171 cm (5' 7.32) Vision Screening: Follows with optometry/ophthalmology Assessment/Plan Medicare annual wellness visit, subsequent (Z.) - Counseled on healthy diet and regular exercise - Fall avoidance information provided - Personalized prevention plan provided # Medicare annual wellness visit, subsequent (Z00.) - Completed Medicare annual wellness visit. - Discussed health maintenance, including diet and exercise. - Reviewed family history; confirmed two sisters and a brother with no known health issues. - Discussed the importance of maintaining a healthy diet and regular exercise. - Advised to continue current exercise routine of 30 minutes, five days a week. - Discussed the importance of having an advanced directive; patient will complete and provide a copy. - Next wellness visit scheduled for next year. # Controlled type 2 diabetes mellitus without complication, without long-term current use of insulin (HCC) (E11.9) - Recent labs show A1c at 8.0%, glucose at 167 mg/dL. - Urine [id number]-lc-uzrdsbuxkn ratio (UACR) was undetectable. - Kidney and liver function tests are normal. - Reinforced importance of carbohydrate control and regular exercise. - Ordered fasting cholesterol, blood counts, metabolic panel, and A1c for next appointment. # Essential hypertension (I10) - Blood pressure today measured at 136/62 mmHg. - Patient forgot to take antihypertensive medication this morning. - Home blood pressure readings range from 127-133 mmHg. - Discussed breathing exercises to help manage blood pressure. - Continue current antihypertensive regimen. # Mixed hyperlipidemia (E78.2) - Previous cholesterol levels reviewed; next cholesterol panel ordered for next appointment. - Continue current lipid-lowering therapy. # Encounter for screening examination for other mental health and behavioral disorders (Z13.39) # Screening for depression (Z13.31) - Completed screenings for anxiety and depression; no issues identified. # Encounter for immunization (Z23) - Administered flu vaccine. India Sams MD documented in this encounter [facility] 10-02-2023 History of Presen t illness Narrative This note was created using [email or web address]. Subjective Jose D Roman is a 73 year old male. Patient presents with: F/U 6 months: Labs prior SUBJECTIVE: Jose D Roman is a 73 year old year old gentleman here today for 6 month follow up appointment for review of medical conditions. Doing well. Had cataracts taken care of. Will get reading glasses later. Noted is way ahead on refills for meds. Does not need sent yet. Has paperwork to complete. Surrogate decision maker --Xiao () PAST MEDICAL HISTORY Diagnosis Date AAA (abdominal aortic aneurysm) (HCC) Diarrhea Diverticulosis of colon (without mention of hemorrhage) horners syndrome left Hx of endovascular stent graft for abdominal aortic aneurysm HYPERLIPIDEMIA NEC/NOS 08/13/2007 Hypertension IFG (impaired fasting glucose) Other and unspecified hyperlipidemia Type II or unspecified type diabetes mellitus without mention of complication, not stated as uncontrolled Changed to IFG after 6 years of HGA1C<6.5 on no meds; HgA1C back up to 8.0 so DM diagnosis again Current Outpatient Medications Medication Sig carvedilol (COREG) 6.25 mg tablet Take 1 tablet by mouth two times a day. atorvastatin (LIPITOR) 20 mg tablet Take 1 tablet by mouth once daily. metFORMIN ER (GLUCOPHAGE XR) 500 mg 24 hr tablet Take 1 tablet by mouth three times daily before meals. amLODIPine (NORVASC) 10 mg tablet Take 1 tablet by mouth once daily. lisinopril (ZESTRIL) 40 mg tablet Take 1 tablet by mouth once daily. ibuprofen (MOTRIN) 200 mg tablet May take 2 to 4 pills up to 4 times daily (max 2400 mg per day) cinnamon bark(CINNAMON 500 MG CAP) Take one(1) tablet daily. aspirin(ECOTRIN LOW STRENGTH 81 MG TAB) Take one(1) tablet daily. ascorbic acid(VITAMIN C 500 MG TAB) Take one(1) tablet daily. No current facility-administered medications for this visit. Review of Systems Objective BP 118/64 Pulse 70 Temp (!) 35.7 C (96.3 F) Resp 18 Wt 83.5 kg (184 lb) SpO2 96% BMI 29.70 kg/m Last 5 Encounter Wt Readings: Date: Wt: 10/02/2023 83.5 kg (184 lb) 05/14/2023 84.6 kg (186 lb 6.4 oz) 03/27/2023 85.7 kg (189 lb) 09/15/2022 85.7 kg (189 lb) 01/23/2022 88.5 kg (195 lb) No waist measurement recorded Estimated body mass index is 29.7 kg/m as calculated from the following: Height as of 03/27/23: 167.6 cm (5' 6). Weight as of this encounter: 83.5 kg (184 lb). Last 5 Encounter BP Readings: Date: BP: 10/02/2023 118/64 05/14/2023 122/58 03/27/2023 132/62 09/15/2022 126/68 01/23/2022 138/74 Physical Exam Vitals reviewed. Constitutional: Appearance: Normal appearance. Eyes: Conjunctiva/sclera: Conjunctivae normal. Cardiovascular: Rate and Rhythm: Normal rate and regular rhythm. Heart sounds: Normal heart sounds. Pulmonary: Effort: Pulmonary effort is normal. Breath sounds: Normal breath sounds. Musculoskeletal: Right lower leg: No edema. Left lower leg: No edema. Skin: General: Skin is warm and dry. Neurological: General: No focal deficit present. Mental Status: He is alert and oriented to person, place, and time. Psychiatric: Attention and Perception: Attention and perception normal. Mood and Affect: Mood and affect normal. Speech: Speech normal. Behavior: Behavior normal. Thought Content: Thought content normal. Judgment: Judgment normal. Latest Ref Rn 09/11/2022 03/22/2023 03/27/2023 09/29/2023 Protein, Total 6.3 - 8.0 g/dL 6.6 6.4 6.1 (L) Albumin 3.9 - 4.9 g/dL 4.4 4.2 4.2 Calcium 8.5 - 10.2 mg/dL 9.6 9.2 9.6 Bilirubin, Total 0.2 - 1.3 mg/dL 0.7 0.6 0.6 Alkaline Phosphatase 38 - 113 U/L 59 62 65 AST 14 - 40 U/L 16 20 19 ALT 10 - 54 U/L 17 21 17 Glucose 74 - 99 mg/dL 173 (H) 147 (H) 175 (H) BUN 9 - 24 mg/dL 15 16 13 Creatinine 0.73 - 1.22 mg/dL 0.78 0.81 0.77 Sodium 136 - 144 mmol/L 143 144 144 Potassium 3.7 - 5.1 mmol/L 4.2 3.8 4.0 Chloride 97 - 105 mmol/L 105 104 106 (H) CO2 22 - 30 mmol/L 28 26 27 Anion Gap 9 - 18 mmol/L 10 14 11 eGFR >=60 mL/min/1.73m 95 94 95 Color Yellow Yellow Clarity Clear Clear Glucose, Urine Trace, Negative Negative Bilirubin, Urine Negative Negative Ketones, Urine Trace, Negative Trace Specific [place], Ur 1.005 - 1.030 1.020 Hemoglobin/Blood,Ur Negative, Trace Negative pH, Urine 5.0 - 8.0 5.5 Protein, Urine Trace, Negative Trace Urobilinogen Negative Negative Nitrites Negative Negative Leukest Negative, 25 [place]/uL Negative WBC, Urine 0-5 /HPF 0-5 /HPF RBC, Urine 0-3 /HPF 0-3 /HPF Hyaline Cast 0 /LPF 1-3 /LPF ! WBC 3.70 - 11.00 k/uL 7.18 7.09 6.24 RBC 4.20 - 6.00 m/uL 4.43 4.40 4.50 Hemoglobin 13.0 - 17.0 g/dL 14.0 13.7 14.1 Hematocrit 39.0 - 51.0 % 40.0 41.0 41.2 MCV 80.0 - 100.0 fL 90.3 93.2 91.6 MCH 26.0 - 34.0 pg 31.6 31.1 31.3 MCHC 30.5 - 36.0 g/dL 35.0 33.4 34.2 RDW-CV 11.5 - 15.0 % 12.1 11.9 12.4 Platelet Count 150 - 400 k/uL 178 192 152 MPV 9.0 - 12.7 fL 11.7 12.0 11.6 Absolute nRBC <0.01 k/uL <0.01 <0.01 <0.01 Cholesterol, Total <200 mg/dL 130 127 139 Triglyceride <150 mg/dL 114 128 54 HDL Cholesterol >39 mg/dL 36 (L) 35 (L) 47 Non HDL Cholesterol <130 mg/dL 94 92 92 Fasting Time hrs 13 14 12 VLDL Cholesterol <30 mg/dL 23 26 11 TC:HDL Ratio <5.10 3.61 3.63 2.96 LDL Cholesterol <100 mg/dL 71 66 81 LDL:HDL Ratio <2.54 1.97 1.89 1.72 Creatinine, Ur Random (UCRR) 20.0 - 300.0 mg/dL 133.4 Albumin, Urine Random mg/L <12.0 Albumin/Creat Ratio <30 mg/g <9 Hemoglobin A1C 4.3 - 5.6 % 7.4 (H) 7.8 (H) 8.0 (H) Estimated Average Glucose mg/dL 166 177 183 Legend: (H) High (L) Low ! Abnormal Assessment and Plan Encounter Diagnosis ICD-10-CM 1. Controlled type 2 diabetes mellitus without complication, without long-term current use of insulin (HCC) E11.9 HEMOGLOBIN A1C COMPREHENSIVE METABOLIC PANEL ALBUMIN/CREATININE RATIO, URINE HgA1C up a little to 8.0--get back on track with regular exercise and watching portions on carbs and get more protein in. Stay on metformin 2. Essential hypertension I10 COMPREHENSIVE METABOLIC PANEL BP controlled. Continue same meds 3. Mixed hyperlipidemia E78.2 Lipids doing great--HDL now over 40 4. Encounter for immunization Z23 RSV PRINTED PHARMACY INSTRUCTIONS 5. Encounter for long-term current use of medication Z79.899 HEMOGLOBIN A1C COMPREHENSIVE METABOLIC PANEL ALBUMIN/CREATININE RATIO, URINE Above issues addressed with patient. Patient involved in shared decision making for management of medical issues. History and medications reviewed. Epic updated as needed Refills and/or prescriptions taken care of and meds adjusted as indicated after reviewed history, exam and labs. Health Maintenance reviewed. Updated record and/or ordered tests as recorded. Encouraged on efforts at healthy diet and regular exercise and adequate sleep. India Sams MD documented in this encounter [facility] 06-04-2023 Miscellaneous Notes Patient has been identified by name and date of : Yes Patient phones for refill(s): Requested Prescriptions Pending Prescriptions Disp Refills carvedilol (COREG) 6.25 mg tablet 180 tablet 3 Sig: Take 1 tablet by mouth two times a day. Date of last office visit in primary care: 03/27/2023 Date of next office visit in primary care: 10/02/2023 Last 2 Encounter Wt Readings: Date: Wt: 05/14/2023 84.6 kg (186 lb 6.4 oz) 03/27/2023 85.7 kg (189 lb) Previous labs/tests for medication: Blood Pressure: BUN (mg/dL) Date Value 03/22/2023 16 07/19/2021 14 Sodium (mmol/L) Date Value 03/22/2023 144 07/19/2021 143 Last 1 Encounter BP Readings: Date: BP: 05/14/2023 122/58 Please advise. Thank you. Dione Aaron LPN. documented in this encounter [facility] 05-15-2023 Miscellaneous Notes Pt's calling back for her test results from [facility] yesterday. In talking with her, (pt in the background and answering questions as well) she states that both she and the pt are still not doing well. She states her is unable to lay flat, is up all night coughing with no relief, is not eating and states that is blood sugars have been out of whack. Pt states 2 days ago his blood sugar was 345 and today it was 225. He states his normal BS is in the 160's. No change in medications. Offered pt an appt several times but he refuses. Instructed to call if BS gets elevated again or if he doesn't feel better or improving in the next few days. documented in this encounter [facility] 05-14-2023 History of Presen t illness Narrative CC: Patient presents with: Cough: Congestion, sore throat, HELMS, fatigue x 5 days HPI: Jose D Roman is a 72 year old male who presents to the office with complaint of head congestion and cough, nonproductive for 5 days. Symptoms are staying the same. Associated symptoms includes headache and body aches. Denies fever, nausea, vomiting , and diarrhea. Treatments tried include nothing so far. with no relief of symptoms. Sick contacts: unknown. History of asthma, frequent episodes of bronchitis, chronic bronchitis, bronchiectasis or COPD: No Smoker: No Seasonal/environmental allergies: No The ROS is otherwise negative. The patient's pmh, medications, allergies, and past visits are reviewed. PHYSICAL EXAM: BP 122/58 Pulse 90 Temp 37.2 C (99 F) Resp 21 Wt 84.6 kg (186 lb 6.4 oz) SpO2 94% BMI 30.09 kg/m General appearance: alert, cooperative, pleasant, in no acute distress Head: Normocephalic Eyes: EOM's intact, conjunctiva pink and moist, no icterus, sclera white, non-injected Oropharynx:moderate erythema, without exudates present Heart: Negative. RRR without obvious murmur, gallop, or rubs. No ectopy. Lungs: clear to auscultation, without rales or wheeze, good air exchange PAST MEDICAL HISTORY Diagnosis Date AAA (abdominal aortic aneurysm) (HCC) Diarrhea Diverticulosis of colon (without mention of hemorrhage) horners syndrome left Hx of endovascular stent graft for abdominal aortic aneurysm HYPERLIPIDEMIA NEC/NOS 08/13/2007 Hypertension IFG (impaired fasting glucose) Other and unspecified hyperlipidemia Type II or unspecified type diabetes mellitus without mention of complication, not stated as uncontrolled Changed to IFG after 6 years of HGA1C<6.5 on no meds; HgA1C back up to 8.0 so DM diagnosis again PAST SURGICAL HISTORY Procedure Laterality Date ARTL CATHJ/CANNULJ MNTR/TRANSFUSION SPX PRQ 12-03-13 COLONOSCOPY FLX DX W/COLLJ SPEC WHEN PFRMD 05/11/2008 Colonoscopy COLONOSCOPY FLX DX W/COLLJ SPEC WHEN PFRMD 07/29/2018 Colonoscopy ENDOVASC REPAIR ABDOM AORTA 12-03-13 AAA REPAIR ALLERGIES Patient has no known allergies. MEDICATIONS atorvastatin (LIPITOR) 20 mg tablet Take 1 tablet by mouth once daily. metFORMIN ER (GLUCOPHAGE XR) 500 mg 24 hr tablet Take 1 tablet by mouth three times daily before meals. amLODIPine (NORVASC) 10 mg tablet Take 1 tablet by mouth once daily. lisinopril (ZESTRIL) 40 mg tablet Take 1 tablet by mouth once daily. carvedilol (COREG) 6.25 mg tablet Take 1 tablet by mouth twice daily. ibuprofen (MOTRIN) 200 mg tablet May take 2 to 4 pills up to 4 times daily (max 2400 mg per day) cinnamon bark(CINNAMON 500 MG CAP) Take one(1) tablet daily. aspirin(ECOTRIN LOW STRENGTH 81 MG TAB) Take one(1) tablet daily. ascorbic acid(VITAMIN C 500 MG TAB) Take one(1) tablet daily. FAMILY HISTORY Problem Relation Age of Onset Diabetes Mother other (Brain Tumor) Father At age 37 Heart Paternal Grandfather Diabetes Sister MR Diabetes Maternal Grandmother other (Melanoma) Sister Social History Tobacco Use Smoking status: Former Packs/day: 1.00 Years: 15.00 Additional pack years: 0.00 Total pack years: 15.00 Types: Cigarettes Quit date: 04/07/1987 Years since quittin.1 Smokeless tobacco: Never Substance Use Topics Alcohol use: Yes Comment: rarely Drug use: No ASSESSMENT/PLAN: 1. URI, acute - ICD9: 465.9, ICD10: J06.9 (primary diagnosis) 2. Sore throat - ICD9: 462, ICD10: J02.9 - STREP A MOLECULAR (POC) - neg Does not want viral swab at this time. Potential red flag symptoms discussed with the patient. Reviewed appropriate action plan to take if red flag symptoms occur. Patient agreeable to treatment plan. Donya Benites APRN.PACKING AND STAMPING MACHINE OPERATOR documented in this encounter [facility] 03-27-2023 History of Presen t illness Narrative This note was created using Sealed. Subjective Jose D Roman is a 72 year old male. HISTORY Jose D Roman is a 72 year old gentleman here for yearly exam and follow up appointment. Noted had GI illness that too ka week to resolve a couple weeks a ago. Sugars were over 200s for a while. Sugars back unde r control now. Eating normally now. Wonders about food poisoning since was also ill the same day. Chills night prior, but no fevers or chills after that.Just diarrhea. Not sure if had hepatitis B vaccine. See assessment and plan for other issues addressed. PAST MEDICAL HISTORY Diagnosis Date AAA (abdominal aortic aneurysm) (HCC) Diarrhea Diverticulosis of colon (without mention of hemorrhage) horners syndrome left Hx of endovascular stent graft for abdominal aortic aneurysm HYPERLIPIDEMIA NEC/NOS 08/13/2007 Hypertension IFG (impaired fasting glucose) Other and unspecified hyperlipidemia Type II or unspecified type diabetes mellitus without mention of complication, not stated as uncontrolled Changed to IFG after 6 years of HGA1C<6.5 on no meds; HgA1C back up to 8.0 so DM diagnosis again Current Outpatient Medications Medication Sig atorvastatin (LIPITOR) 20 mg tablet Take 1 tablet by mouth once daily. metFORMIN ER (GLUCOPHAGE XR) 500 mg 24 hr tablet Take 1 tablet by mouth three times daily before meals. amLODIPine (NORVASC) 10 mg tablet Take 1 tablet by mouth once daily. lisinopril (ZESTRIL) 40 mg tablet Take 1 tablet by mouth once daily. carvedilol (COREG) 6.25 mg tablet Take 1 tablet by mouth twice daily. ibuprofen (MOTRIN) 200 mg tablet May take 2 to 4 pills up to 4 times daily (max 2400 mg per day) cinnamon bark(CINNAMON 500 MG CAP) Take one(1) tablet daily. aspirin(ECOTRIN LOW STRENGTH 81 MG TAB) Take one(1) tablet daily. ascorbic acid(VITAMIN C 500 MG TAB) Take one(1) tablet daily. No current facility-administered medications for this visit. ALLERGIES No Known Allergies FAMILY HISTORY Problem Relation Age of Onset Diabetes Mother other (Brain Tumor) Father At age 37 Heart Paternal Grandfather Diabetes Sister MR Diabetes Maternal Grandmother other (Melanoma) Sister Social History Tobacco Use Smoking status: Former Packs/day: 1.00 Years: 15.00 Additional pack years: 0.00 Total pack years: 15.00 Types: Cigarettes Quit date: 04/07/1987 Years since quittin.9 Smokeless tobacco: Never Substance Use Topics Alcohol use: Yes Comment: rarely Drug use: No Review of Systems Objective BP 158/71 Pulse 70 Temp 36.3 C (97.4 F) Resp 18 Ht 167.6 cm (5' 6) Wt 85.7 kg (189 lb) SpO2 97% BMI 30.51 kg/m Last 5 Encounter Wt Readings: Date: Wt: 03/27/2023 85.7 kg (189 lb) 09/15/2022 85.7 kg (189 lb) 01/23/2022 88.5 kg (195 lb) 07/25/2021 88.9 kg (196 lb) 05/05/2021 88.6 kg (195 lb 6.4 oz) No waist measurement recorded Estimated body mass index is 30.51 kg/m as calculated from the following: Height as of this encounter: 167.6 cm (5' 6). Weight as of this encounter: 85.7 kg (189 lb). Last 5 Encounter BP Readings: Date: BP: 03/27/2023 158/71 09/15/2022 126/68 01/23/2022 138/74 07/25/2021 130/72 05/05/2021 136/82 03/27/23 0804 03/27/23 0847 BP: 158/71 132/62 Pulse: 70 Resp: 18 Temp: 36.3 C (97.4 F) SpO2: 97% Weight: 85.7 kg (189 lb) Height: 167.6 cm (5' 6) Physical Exam Vitals reviewed. Constitutional: Appearance: Normal appearance. HENT: Head: Normocephalic. Right Ear: Tympanic membrane, ear canal and external ear normal. Left Ear: Tympanic membrane, ear canal and external ear normal. Mouth/Throat: Mouth: Mucous membranes are moist. Pharynx: Oropharynx is clear. Eyes: Extraocular Movements: Extraocular movements intact. Conjunctiva/sclera: Conjunctivae normal. Neck: Vascular: No carotid bruit. Cardiovascular: Rate and Rhythm: Normal rate and regular rhythm. Pulses: Normal pulses. Heart sounds: Normal heart sounds. Pulmonary: Effort: Pulmonary effort is normal. Breath sounds: Normal breath sounds. Abdominal: General: Abdomen is flat. There is no distension. Palpations: Abdomen is soft. There is no mass. Tenderness: There is no abdominal tenderness. There is no guarding or rebound. Hernia: A hernia is present. Hernia is present in the umbilical area (abdominal wall defect about 1cm; easily reducible). Musculoskeletal: Cervical back: Normal range of motion. Lymphadenopathy: Cervical: No cervical adenopathy. Skin: General: Skin is warm and dry. Neurological: General: No focal deficit present. Mental Status: He is alert and oriented to person, place, and time. Psychiatric: Attention and Perception: Attention and perception normal. Mood and Affect: Mood normal. Speech: Speech normal. Behavior: Behavior normal. Thought Content: Thought content normal. Cognition and Memory: Cognition and memory normal. Judgment: Judgment normal. Feet:Shoes and socks removed, No deformities, ulcers, calluses, normal distal pulses, and sensitive to 10 gm monofilament Component Latest Ref Rng & Units 01/17/2022 09/11/2022 03/22/2023 Protein, Total 6.3 - 8.0 g/dL 6.8 6.6 6.4 Albumin 3.9 - 4.9 g/dL 4.4 4.4 4.2 Calcium 8.5 - 10.2 mg/dL 9.5 9.6 9.2 Bilirubin, Total 0.2 - 1.3 mg/dL 0.7 0.7 0.6 Alkaline Phosphatase 38 - 113 U/L 58 59 62 AST 14 - 40 U/L 15 16 20 ALT 10 - 54 U/L 22 17 21 Glucose 74 - 99 mg/dL 178 (H) 173 (H) 147 (H) BUN 9 - 24 mg/dL 15 15 16 Creatinine 0.73 - 1.22 mg/dL 0.85 0.78 0.81 Sodium 136 - 144 mmol/L 141 143 144 Potassium 3.7 - 5.1 mmol/L 4.5 4.2 3.8 Chloride 97 - 105 mmol/L 105 105 104 CO2 22 - 30 mmol/L 27 28 26 Anion Gap 9 - 18 mmol/L 9 10 14 eGFR >=60 mL/min/1.73m 93 95 94 Color Yellow Yellow Clarity Clear Clear Glucose, Urine Trace, Negative Negative Bilirubin, Urine Negative Negative Ketones, Urine Trace, Negative Trace Specific [place], Ur 1.005 - 1.030 1.020 Hemoglobin/Blood,Ur Negative, Trace Negative pH, Urine 5.0 - 8.0 5.5 Protein, Urine Trace, Negative Trace Urobilinogen Negative Negative Nitrites Negative Negative Leukest Negative, 25 [place]/uL Negative WBC, Urine 0-5 /HPF 0-5 /HPF RBC, Urine 0-3 /HPF 0-3 /HPF Hyaline Cast 0 /LPF 1-3 /LPF (A) WBC 3.70 - 11.00 k/uL 7.24 7.18 7.09 RBC 4.20 - 6.00 m/uL 4.63 4.43 4.40 Hemoglobin 13.0 - 17.0 g/dL 14.3 14.0 13.7 Hematocrit 39.0 - 51.0 % 43.4 40.0 41.0 MCV 80.0 - 100.0 fL 93.7 90.3 93.2 MCH 26.0 - 34.0 pg 30.9 31.6 31.1 MCHC 30.5 - 36.0 g/dL 32.9 35.0 33.4 RDW-CV 11.5 - 15.0 % 12.2 12.1 11.9 Platelet Count 150 - 400 k/uL 177 178 192 MPV 9.0 - 12.7 fL 11.5 11.7 12.0 Absolute nRBC <0.01 k/uL <0.01 <0.01 <0.01 Cholesterol, Total <200 mg/dL 162 130 127 Triglyceride <150 mg/dL 138 114 128 HDL Cholesterol >39 mg/dL 39 (L) 36 (L) 35 (L) Non HDL Cholesterol <130 mg/dL 123 94 92 Fasting Time hrs 12 13 14 VLDL Cholesterol <30 mg/dL 28 23 26 TC:HDL Ratio <5.10 4.15 3.61 3.63 LDL Cholesterol <100 mg/dL 95 71 66 LDL:HDL Ratio <2.54 2.44 1.97 1.89 Creatinine, Ur Random (UCRR) 20.0 - 300.0 mg/dL 244.4 Albumin, Urine Random mg/L <12.0 Albumin/Creat Ratio <30 mg/g <5 Hemoglobin A1C 4.3 - 5.6 % 8.1 (H) 7.4 (H) 7.8 (H) Estimated Average Glucose mg/dL 186 166 177 Assessment and Plan Encounter Diagnosis ICD-10-CM 1. Controlled type 2 diabetes mellitus without complication, without long-term current use of insulin (HCC) E11.9 ALBUMIN/CREAT RATIO RND UR COMP METABOLIC PANEL CBC LIPID PANEL BASIC HGB A1C Doing well overall. Just high during illness 2. Essential hypertension I10 COMP METABOLIC PANEL CBC BP improved on recheck. Good at home 120 to 130s. 3. Mixed hyperlipidemia E78.2 LIPID PANEL BASIC Just HDL low; TG and LDL to goals 4. Umbilical hernia without obstruction and without gangrene K42.9 Monitor for now; refer to neral surgeon for evaluation and treatment as indicated. Above issues addressed with patient. Patient involved in shared decision making for management of medical issues. History and medications reviewed. Epic updated as needed Refills and/or prescriptions taken care of and meds adjusted as indicated after reviewed history, exam and labs. Stay on current medications. Further evaluation and treatment as indicated. Health Maintenance reviewed. Updated record and/or ordered tests as recorded. Encouraged on efforts at healthy diet and regular exercise and adequate sleep. India Sams MD documented in this encounter [facility] 02-20-2023 Miscellaneous Notes Last office visit: 09/15/22 Next appointment scheduled: 03/27/23 Last labs: 09/11/22 Patient phones requesting refills as follows: Requested Prescriptions Pending Prescriptions Disp Refills atorvastatin (LIPITOR) 20 mg tablet 90 tablet 3 Sig: Take 1 tablet by mouth once daily. Please review and advise. April Masters LPN documented in this encounter [facility] 02-07-2023 Miscellaneous Notes Okayed EJ: 09/15/2022 NOV: 03/27/2023 Last refill: 04/19/2022 QTY: 270 Refills: 3 documented in this encounter [facility] 12-29-2022 Miscellaneous Notes Last office visit: 09/15/22 Next appointment scheduled: 03/27/23 Last labs: 09/11/22 Patient phones requesting refills as follows: Requested Prescriptions Pending Prescriptions Disp Refills amLODIPine (NORVASC) 10 mg tablet 90 tablet 3 Sig: Take 1 tablet by mouth once daily. April Masters LPN documented in this encounter [facility] 09-15-2022 History of Presen t illness Narrative This note was created using [email or web address]. Subjective Jose D Roman is a 72 year old male. Patient presents with: F/U 6 months: Labs prior SUBJECTIVE: Jose D Roman is a 72 year old year old gentleman here today for 6 month follow up appointment for review of medical conditions. Eye doctor seen yesterday for stye--started about 3 to 4 weeks ago; hot red and larger so saw eye doctor. Not able to cas[place] it so given ointment. Doing warm wet compresses. Has ankle wrap to wear when walking more. Healed from left ankle surgery. Still working on getting ROM back. 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 Advanced directives: Working on this. Surrogate decision maker is his . Will drop off copy when completed. PAST MEDICAL HISTORY Diagnosis Date AAA (abdominal aortic aneurysm) (HCC) Diarrhea Diverticulosis of colon (without mention of hemorrhage) horners syndrome left Hx of endovascular stent graft for abdominal aortic aneurysm HYPERLIPIDEMIA NEC/NOS 08/13/2007 Hypertension IFG (impaired fasting glucose) Other and unspecified hyperlipidemia Type II or unspecified type diabetes mellitus without mention of complication, not stated as uncontrolled Changed to IFG after 6 years of HGA1C<6.5 on no meds; HgA1C back up to 8.0 so DM diagnosis again Current Outpatient Medications Medication Sig carvedilol (COREG) 6.25 mg tablet Take 1 tablet by mouth twice daily. atorvastatin (LIPITOR) 20 mg tablet Take 1 tablet by mouth once daily. metFORMIN ER (GLUCOPHAGE XR) 500 mg 24 hr tablet Take 1 tablet by mouth three times daily before meals. amLODIPine (NORVASC) 10 mg tablet Take 1 tablet by mouth once daily. lisinopril (ZESTRIL, PRINIVIL) 40 mg tablet Take 1 tablet by mouth once daily. ibuprofen (MOTRIN) 200 mg tablet May take 2 to 4 pills up to 4 times daily (max 2400 mg per day) cinnamon bark(CINNAMON 500 MG CAP) Take one(1) tablet daily. aspirin(ECOTRIN LOW STRENGTH 81 MG TAB) Take one(1) tablet daily. ascorbic acid(VITAMIN C 500 MG TAB) Take one(1) tablet daily. No current facility-administered medications for this visit. Review of Systems Objective BP 126/68 Pulse 67 Temp 36.3 C (97.4 F) Resp 18 Wt 85.7 kg (189 lb) SpO2 97% BMI 30.51 kg/m Physical Exam Vitals reviewed. Constitutional: Appearance: Normal appearance. Eyes: Conjunctiva/sclera: Conjunctivae normal. Cardiovascular: Rate and Rhythm: Normal rate and regular rhythm. Heart sounds: Normal heart sounds. Pulmonary: Effort: Pulmonary effort is normal. Breath sounds: Normal breath sounds. Musculoskeletal: Left lower leg: Edema (trace to 1+ lower leg and ankle) present. Comments: Mild decreased ROM left ankle Skin: General: Skin is warm and dry. Neurological: General: No focal deficit present. Mental Status: He is alert and oriented to person, place, and time. Psychiatric: Mood and Affect: Mood normal. Behavior: Behavior normal. Thought Content: Thought content normal. Judgment: Judgment normal. Component Latest Ref Rng & Units 07/19/2021 01/17/2022 09/11/2022 Protein, Total 6.3 - 8.0 g/dL 6.4 6.8 6.6 Albumin 3.9 - 4.9 g/dL 4.4 4.4 4.4 Calcium 8.5 - 10.2 mg/dL 9.4 9.5 9.6 Bilirubin, Total 0.2 - 1.3 mg/dL 0.6 0.7 0.7 Alkaline Phosphatase 38 - 113 U/L 64 58 59 AST 14 - 40 U/L 15 15 16 Glucose 74 - 99 mg/dL 170 (H) 178 (H) 173 (H) BUN 9 - 24 mg/dL 14 15 15 Creatinine 0.73 - 1.22 mg/dL 0.83 0.85 0.78 Sodium 136 - 144 mmol/L 143 141 143 Potassium 3.7 - 5.1 mmol/L 4.0 4.5 4.2 Chloride 97 - 105 mmol/L 105 105 105 CO2 22 - 30 mmol/L 28 27 28 Anion Gap 9 - 18 mmol/L 10 9 10 ALT 10 - 54 U/L 19 22 17 eGFR- >60 eGFR-All Other Races . >60 eGFR >=60 mL/min/1.73m 93 95 WBC 3.70 - 11.00 k/uL 6.97 7.24 7.18 RBC 4.20 - 6.00 m/uL 4.66 4.63 4.43 Hemoglobin 13.0 - 17.0 g/dL 14.4 14.3 14.0 Hematocrit 39.0 - 51.0 % 43.5 43.4 40.0 MCV 80.0 - 100.0 fL 93.3 93.7 90.3 MCH 26.0 - 34.0 pg 30.9 30.9 31.6 MCHC 30.5 - 36.0 g/dL 33.1 32.9 35.0 RDW-CV 11.5 - 15.0 % 12.1 12.2 12.1 Platelet Count 150 - 400 k/uL 170 177 178 MPV 9.0 - 12.7 fL 12.1 11.5 11.7 Absolute nRBC <0.01 k/uL <0.01 <0.01 <0.01 Cholesterol, Total <200 mg/dL 140 162 130 Triglyceride <150 mg/dL 118 138 114 HDL Cholesterol >39 mg/dL 41 39 (L) 36 (L) LDL Cholesterol <100 mg/dL 75 95 71 Non HDL Cholesterol <130 mg/dL 99 123 94 Fasting Time hrs 12 12 13 VLDL Cholesterol <30 mg/dL 24 28 23 TC:HDL Ratio <5.10 3.41 4.15 3.61 LDL:HDL Ratio <2.54 1.83 2.44 1.97 Creatinine, Ur Random (UCRR) 20.0 - 300.0 mg/dL 244.4 Albumin, Urine Random mg/L <12.0 Albumin/Creat Ratio <30 mg/g <5 Hemoglobin A1C 4.3 - 5.6 % 7.9 (H) 8.1 (H) 7.4 (H) Estimated Average Glucose mg/dL 180 186 166 Assessment and Plan Encounter Diagnosis ICD-10-CM 1. Controlled type 2 diabetes mellitus without complication, without long-term current use of insulin (HCC) E11.9 COMP METABOLIC PANEL HGB A1C URINALYSIS, WITH MICROSCOPIC 2. Essential hypertension I10 COMP METABOLIC PANEL CBC 3. Mixed hyperlipidemia E78.2 LIPID PANEL BASIC Above issues addressed with patient. Patient involved in shared decision making for management of medical issues. History and medications reviewed. Epic updated as needed Refills and/or prescriptions taken care of and meds adjusted as indicated after reviewed history, exam and labs. Health Maintenance reviewed. Updated record and/or ordered tests as recorded. Encouraged on efforts at healthy diet and regular exercise and adequate sleep. Stye--managed by Dr. Arias at [facility]. Ankle fracture--Dr. Joey Sams MD documented in this encounter [facility] 04-19-2022 Miscellaneous Notes NOV 09/15/22 EJ 01/23/22 Patient electronically sent a request for the following prescription(s) Requested Prescriptions Pending Prescriptions Disp Refills metFORMIN ER (GLUCOPHAGE XR) 500 mg 24 hr tablet 270 tablet 3 Sig: Take 1 tablet by mouth three times daily before meals. Patient aware RX will be sent to pharmacy. No need to notify patient. Please review. Rosanne Marquez MA documented in this encounter [facility] 03-27-2022 Miscellaneous Notes The following approved medication requests have been transmitted electronically. Requested Prescriptions Prescriptions Disp Refills amLODIPine (NORVASC) 10 mg tablet 90 tablet 3 Sig: Take 1 tablet by mouth once daily. India Sams MD Patient has been identified by name and date of : Yes Patient phones for refill(s): Requested Prescriptions Pending Prescriptions Disp Refills amLODIPine (NORVASC) 10 mg tablet 90 tablet 3 Sig: Take 1 tablet by mouth once daily. Date of last office visit in primary care: 01/23/22 Last 2 Encounter Wt Readings: Date: Wt: 01/23/2022 88.5 kg (195 lb) 07/25/2021 88.9 kg (196 lb) Previous labs/tests for medication: Blood Pressure: BUN (mg/dL) Date Value 01/17/2022 15 07/19/2021 14 Sodium (mmol/L) Date Value 01/17/2022 141 07/19/2021 143 Last 1 Encounter BP Readings: Date: BP: 01/23/2022 138/74 Please advise. Thank you. Marlene Stevens LPN documented in this encounter [facility] 02-27-2022 Miscellaneous Notes EJ: 01/23/2022 Last refill: 05/13/2021 QTY: 90 Refills: 3 Patient's request for medication is as follows: Requested Prescriptions Pending Prescriptions Disp Refills lisinopril (ZESTRIL, PRINIVIL) 40 mg tablet 90 tablet 3 Sig: Take 1 tablet by mouth once daily. Please approve the above prescription(s) to electronically send to pharmacy. Aries Sue Ma documented in this encounter [facility] 07-25-2021 History of Presen t illness Narrative This note was created using [email or web address]. Subjective Jose D Roman is a 70 year old male. Patient presents with: F/U 6 months SUBJECTIVE: Jose D Roman is a 70 year old year old gentleman here today for 6 month follow up appointment for review of medical conditions. BP still higher in office than at home. 130s at home. Sugars riding a little high. Slower with activity than in the summer. Still getting steps in. Still uses [employer] for testing glucose. Doing well on current meds. Mild headache after had COVID--similar type of headache as when was ill. Sinus headache in front of head and around eyes. Contracted the week before Thanksgiving. doing okay too after had COVID. Probably got from [place]. PAST MEDICAL HISTORY Diagnosis Date AAA (abdominal aortic aneurysm) (HCC) Diarrhea Diverticulosis of colon (without mention of hemorrhage) horners syndrome left Hx of endovascular stent graft for abdominal aortic aneurysm HYPERLIPIDEMIA NEC/NOS 08/13/2007 Hypertension IFG (impaired fasting glucose) Other and unspecified hyperlipidemia Type II or unspecified type diabetes mellitus without mention of complication, not stated as uncontrolled Changed to IFG after 6 years of HGA1C<6.5 on no meds; HgA1C back up to 8.0 so DM diagnosis again Current Outpatient Medications Medication Sig [START ON 09/28/2021] atorvastatin (LIPITOR) 20 mg tablet Take 1 tablet by mouth once daily. metFORMIN ER (GLUCOPHAGE XR) 500 mg 24 hr tablet TAKE 1 TABLET BY MOUTH THREE TIMES DAILY BEFORE MEALS. amLODIPine (NORVASC) 10 mg tablet Take 1 tablet by mouth once daily. lisinopril (ZESTRIL, PRINIVIL) 40 mg tablet Take 1 tablet by mouth once daily. carvedilol (COREG) 6.25 mg tablet Take 1 tablet by mouth twice daily. Lancets lancets Test blood sugar(s) one time daily. Dx: Type 2 DM - Controlled E11.9 Insulin: No ibuprofen (MOTRIN) 200 mg tablet May take 2 to 4 pills up to 4 times daily (max 2400 mg per day) blood sugar diagnostic (RELION PRIME TEST STRIPS) test strip Test glucose once every 3 days or so Blood-Glucose Meter (RELION PRIME METER) mis Checks sugars every 3 days or so cinnamon bark(CINNAMON 500 MG CAP) Take one(1) tablet daily. aspirin(ECOTRIN LOW STRENGTH 81 MG TAB) Take one(1) tablet daily. ascorbic acid(VITAMIN C 500 MG TAB) Take one(1) tablet daily. No current facility-administered medications for this visit. Review of Systems Objective BP 140/82 Pulse 82 Wt 88.9 kg (196 lb) BMI 31.64 kg/m Last 5 Encounter BP Readings: Date: BP: 07/25/2021 140/82 05/05/2021 136/82 01/05/2021 146/70 08/17/2020 158/62 07/29/2020 143/71[BP Trip average[ Last 5 Encounter Wt Readings: Date: Wt: 07/25/2021 88.9 kg (196 lb) 05/05/2021 88.6 kg (195 lb 6.4 oz) 01/05/2021 88.5 kg (195 lb) 08/17/2020 88 kg (194 lb) 04/29/2019 88 kg (194 lb) 07/25/21 0853 07/25/21 0918 BP: 140/82 130/72 Pulse: 82 Weight: 88.9 kg (196 lb) Physical Exam Vitals reviewed. Constitutional: Appearance: Normal appearance. Eyes: Conjunctiva/sclera: Conjunctivae normal. Cardiovascular: Rate and Rhythm: Normal rate and regular rhythm. Heart sounds: Normal heart sounds. Pulmonary: Effort: Pulmonary effort is normal. Breath sounds: Normal breath sounds. Skin: General: Skin is warm and dry. Neurological: General: No focal deficit present. Mental Status: He is alert and oriented to person, place, and time. Psychiatric: Mood and Affect: Mood normal. Behavior: Behavior normal. Thought Content: Thought content normal. Judgment: Judgment normal. Component Latest Ref Rng & Units 05/17/2020 12/31/2020 07/19/2021 Protein, Total 6.3 - 8.0 g/dL 6.5 6.9 6.4 Albumin 3.9 - 4.9 g/dL 4.4 4.5 4.4 Calcium 8.5 - 10.2 mg/dL 9.2 9.7 9.4 Bilirubin, Total 0.2 - 1.3 mg/dL 0.7 0.6 0.6 Alkaline Phosphatase 38 - 113 U/L 64 70 64 AST 14 - 40 U/L 15 19 15 Glucose 74 - 99 mg/dL 151 (H) 160 (H) 170 (H) BUN 9 - 24 mg/dL 20 15 14 Creatinine 0.73 - 1.22 mg/dL 0.85 0.76 0.83 Sodium 136 - 144 mmol/L 142 142 143 Potassium 3.7 - 5.1 mmol/L 3.5 (L) 3.9 4.0 Chloride 97 - 105 mmol/L 105 105 105 CO2 22 - 30 mmol/L 25 26 28 Anion Gap 9 - 18 mmol/L 12 11 10 ALT 10 - 54 U/L 17 23 19 eGFR- >60 >60 >60 eGFR-All Other Races . >60 >60 >60 WBC 3.70 - 11.00 k/uL 6.25 7.20 6.97 RBC 4.20 - 6.00 m/uL 4.29 4.59 4.66 Hemoglobin 13.0 - 17.0 g/dL 13.7 14.4 14.4 Hematocrit 39.0 - 51.0 % 40.0 42.1 43.5 MCV 80.0 - 100.0 fL 93.2 91.7 93.3 MCH 26.0 - 34.0 pG 31.9 31.4 30.9 MCHC 30.5 - 36.0 g/dL 34.3 34.2 33.1 RDW-CV 11.5 - 15.0 % 12.1 12.2 12.1 Platelet Count 150 - 400 k/uL 166 168 170 MPV 9.0 - 12.7 fL 11.9 11.6 12.1 Absolute nRBC <0.01 k/uL <0.01 <0.01 <0.01 Cholesterol, Total <200 mg/dL 123 153 140 Triglyceride <150 mg/dL 93 126 118 HDL Cholesterol >39 mg/dL 37 (L) 41 41 LDL Cholesterol <100 mg/dL 67 87 75 Non HDL Cholesterol <130 mg/dL 86 112 99 Fasting Time hrs 12 12 12 VLDL Cholesterol <30 mg/dL 19 25 24 TC:HDL Ratio <5.10 3.32 3.73 3.41 LDL:HDL Ratio <2.54 1.81 2.12 1.83 Creatinine, Ur Random (UCRR) 20 - 300 mg/dL 143.3 Albumin, Urine Random mg/L <12.0 Albumin/Creat Ratio <30 mg/g Not calculated Hemoglobin A1C 4.3 - 5.6 % 7.5 (H) 7.7 (H) 7.9 (H) Estimated Average Glucose mg/dL 169 174 180 Assessment and Plan Encounter Diagnosis ICD-10-CM 1. Essential hypertension I10 COMP METABOLIC PANEL CBC 2. Mixed hyperlipidemia E78.2 LIPID PANEL BASIC 3. Controlled type 2 diabetes mellitus without complication, without long-term current use of insulin (HCC) E11.9 COMP METABOLIC PANEL HGB A1C ALBUMIN/CREAT RATIO RND UR ASSESSMENT/PLAN: 1. Essential hypertension - ICD9: 401.9, ICD10: I10 (primary diagnosis) - good control - Continue current medication(s) - Recommended regular aerobic exercise. - Recommend home blood pressure monitoring, to bring results in on next visit - Goal of BP <130/80 - COMP METABOLIC PANEL - CBC 2. Mixed hyperlipidemia - ICD9: 272.2, ICD10: E78.2 - good control - Continue current medication. - Encouraged following a low carbohydrate, healthy oil intake diet. - LIPID PANEL BASIC 3. Controlled type 2 diabetes mellitus without complication, without long-term current use of insulin (HCC) - ICD9: 250.00, ICD10: E11.9 Controlled. - Continue current medications - COMP METABOLIC PANEL - HGB A1C - ALBUMIN/CREAT RATIO RND UR 4. History COVID 19 infection--doing well now. Had in April around . Had some headaches but fine now. India Sams MD Medical Decision Making: Problems: Moderate: 2+ stable chronic illnesses Data: Unique test(s) ordered: 3+ Risk: Moderate: Drug management Medical Decision Making Level: 4 - Moderate documented in this encounter [facility] 09-11-2016 History of Past i llness Narrative Problem Noted Date Resolved Date Uncontrolled type 2 diabetes mellitus without complication, without long-term current use of insulin 09/11/2016 10/11/2017 AAA (abdominal aortic aneurysm) 11/11/2013 09/24/2016 Other and unspecified hyperlipidemia 08/13/2007 10/06/2013 HYPERGLYCEMIA 08/13/2007 10/06/2013 OVERWEIGHT 08/13/2007 10/06/2013 documented as of this encounter (statuses as of 10/17/2021) [facility]-27-2017 History of Past illness Narrative* Problem Noted Date Resolved Date Uncontrolled type 2 diabetes mellitus without complication, without long-term current use of insulin 09/11/2016 10/11/2017 AAA (abdominal aortic aneurysm) 11/11/2013 09/24/2016 Other and unspecified hyperlipidemia 08/13/2007 10/06/2013 HYPERGLYCEMIA 08/13/2007 10/06/2013 OVERWEIGHT 08/13/2007 10/06/2013 documented as of this encounter (statuses as of 02/28/2022) [facility]27-2017 History of Past illness Narrative* Problem Noted Date Resolved Date Uncontrolled type 2 diabetes mellitus without complication, without long-term current use of insulin 09/11/2016 10/11/2017 AAA (abdominal aortic aneurysm) 11/11/2013 09/24/2016 Other and unspecified hyperlipidemia 08/13/2007 10/06/2013 HYPERGLYCEMIA 08/13/2007 10/06/2013 OVERWEIGHT 08/13/2007 10/06/2013 documented as of this encounter (statuses as of 03/28/2022) [facility]27-2017 History of Past illness Narrative* Problem Noted Date Resolved Date Uncontrolled type 2 diabetes mellitus without complication, without long-term current use of insulin 09/11/2016 10/11/2017 AAA (abdominal aortic aneurysm) 11/11/2013 09/24/2016 Other and unspecified hyperlipidemia 08/13/2007 10/06/2013 HYPERGLYCEMIA 08/13/2007 10/06/2013 OVERWEIGHT 08/13/2007 10/06/2013 documented as of this encounter (statuses as of 04/08/2022) [facility]27-2017 History of Past illness Narrative* Problem Noted Date Resolved Date Uncontrolled type 2 diabetes mellitus without complication, without long-term current use of insulin 09/11/2016 10/11/2017 AAA (abdominal aortic aneurysm) 11/11/2013 09/24/2016 Other and unspecified hyperlipidemia 08/13/2007 10/06/2013 HYPERGLYCEMIA 08/13/2007 10/06/2013 OVERWEIGHT 08/13/2007 10/06/2013 documented as of this encounter (statuses as of 04/19/2022) [facility]2017 History of Past illness Narrative* Problem Noted Date Resolved Date Uncontrolled type 2 diabetes mellitus without complication, without long-term current use of insulin 09/11/2016 10/11/2017 AAA (abdominal aortic aneurysm) 11/11/2013 09/24/2016 Other and unspecified hyperlipidemia 08/13/2007 10/06/2013 HYPERGLYCEMIA 08/13/2007 10/06/2013 OVERWEIGHT 08/13/2007 10/06/2013 documented as of this encounter (statuses as of 05/02/2022) [facility]2017 History of Past illness Narrative* Problem Noted Date Resolved Date Uncontrolled type 2 diabetes mellitus without complication, without long-term current use of insulin 09/11/2016 10/11/2017 AAA (abdominal aortic aneurysm) 11/11/2013 09/24/2016 Other and unspecified hyperlipidemia 08/13/2007 10/06/2013 HYPERGLYCEMIA 08/13/2007 10/06/2013 OVERWEIGHT 08/13/2007 10/06/2013 documented as of this encounter (statuses as of 10/16/2022) [facility]-2017 History of Past illness Narrative* Problem Noted Date Diagnosed Date Resolved Date Uncontrolled type 2 diabetes mellitus without complication, without long-term current use of insulin 09/11/2016 10/11/2017 AAA (abdominal aortic aneurysm) 11/11/2013 09/24/2016 Other and unspecified hyperlipidemia 08/13/2007 10/06/2013 HYPERGLYCEMIA 08/13/2007 10/06/2013 OVERWEIGHT 08/13/2007 10/06/2013 documented as of this encounter (statuses as of 12/29/2022) [place] [address]-27-2017 History of Past illness Narrative* Problem Noted Date Diagnosed Date Resolved Date Uncontrolled type 2 diabetes mellitus without complication, without long-term current use of insulin 09/11/2016 10/11/2017 AAA (abdominal aortic aneurysm) 11/11/2013 09/24/2016 Other and unspecified hyperlipidemia 08/13/2007 10/06/2013 HYPERGLYCEMIA 08/13/2007 10/06/2013 OVERWEIGHT 08/13/2007 10/06/2013 documented as of this encounter (statuses as of 02/07/2023) [facility] History of Past illness Narrative* Problem Noted Date Diagnosed Date Resolved Date Uncontrolled type 2 diabetes mellitus without complication, without long-term current use of insulin 09/11/2016 10/11/2017 AAA (abdominal aortic aneurysm) 11/11/2013 09/24/2016 Other and unspecified hyperlipidemia 08/13/2007 10/06/2013 HYPERGLYCEMIA 08/13/2007 10/06/2013 OVERWEIGHT 08/13/2007 10/06/2013 documented as of this encounter (statuses as of 02/22/2023) [address]27-2017 History of Past illness Narrative* Problem Noted Date Diagnosed Date Resolved Date Uncontrolled type 2 diabetes mellitus without complication, without long-term current use of insulin 09/11/2016 10/11/2017 AAA (abdominal aortic aneurysm) 11/11/2013 09/24/2016 Other and unspecified hyperlipidemia 08/13/2007 10/06/2013 HYPERGLYCEMIA 08/13/2007 10/06/2013 OVERWEIGHT 08/13/2007 10/06/2013 documented as of this encounter (statuses as of 04/28/2023) [place] [address]-27-2017 History of Past illness Narrative* Problem Noted Date Diagnosed Date Resolved Date Uncontrolled type 2 diabetes mellitus without complication, without long-term current use of insulin 09/11/2016 10/11/2017 AAA (abdominal aortic aneurysm) 11/11/2013 09/24/2016 Other and unspecified hyperlipidemia 08/13/2007 10/06/2013 HYPERGLYCEMIA 08/13/2007 10/06/2013 OVERWEIGHT 08/13/2007 10/06/2013 documented as of this encounter (statuses as of 05/15/2023) [place] [address]-27-2017 History of Past illness Narrative* Problem Noted Date Diagnosed Date Resolved Date Uncontrolled type 2 diabetes mellitus without complication, without long-term current use of insulin 09/11/2016 10/11/2017 AAA (abdominal aortic aneurysm) 11/11/2013 09/24/2016 Other and unspecified hyperlipidemia 08/13/2007 10/06/2013 HYPERGLYCEMIA 08/13/2007 10/06/2013 OVERWEIGHT 08/13/2007 10/06/2013 documented as of this encounter (statuses as of 05/15/2023) [facility]-2017 History of Past illness Narrative* Problem Noted Date Diagnosed Date Resolved Date Uncontrolled type 2 diabetes mellitus without complication, without long-term current use of insulin 09/11/2016 10/11/2017 AAA (abdominal aortic aneurysm) 11/11/2013 09/24/2016 Other and unspecified hyperlipidemia 08/13/2007 10/06/2013 HYPERGLYCEMIA 08/13/2007 10/06/2013 OVERWEIGHT 08/13/2007 10/06/2013 documented as of this encounter (statuses as of 06/05/2023) [facility] note* Diagnosis Essential hypertension- Primary Unspecified essential hypertension Mixed hyperlipidemia Controlled type 2 diabetes mellitus without complication, without long-term current use of insulin (HCC) Personal history of COVID-19 documented in this encounter [facility] note* Diagnosis Essential hypertension Unspecified essential hypertension documented in this encounter [facility] note* Diagnosis Controlled type 2 diabetes mellitus without complication, without long-term current use of insulin (HCC) documented in this encounter [facility] note* Diagnosis Mixed hyperlipidemia documented in this encounter [facility] noteNo assessment information availableWUniversity [facility]als [facility] Work Phone: Evaluation note* Diagnosis Controlled type 2 diabetes mellitus without complication, without long-term current use of insulin (HCC)- Primary Essential hypertension Unspecified essential hypertension Mixed hyperlipidemia documented in this encounter [facility] note* Diagnosis Controlled type 2 diabetes mellitus without complication, without long-term current use of insulin (HCC) documented in this encounter [facility] note* Diagnosis Mixed hyperlipidemia documented in this encounter [facility] note* Diagnosis Controlled type 2 diabetes mellitus without complication, without long-term current use of insulin (HCC)- Primary Essential hypertension Unspecified essential hypertension Mixed hyperlipidemia Umbilical hernia without obstruction and without gangrene documented in this encounter [facility]* Diagnosis URI, acute- Primary Acute upper respiratory infections of unspecified site Sore throat Acute pharyngitis documented in this encounter [facility] note* Diagnosis Essential hypertension Unspecified essential hypertension documented in this encounter [facility] note* Diagnosis Controlled type 2 diabetes mellitus without complication, without long-term current use of insulin (HCC)- Primary Essential hypertension Unspecified essential hypertension Mixed hyperlipidemia Encounter for immunization Need for other specified prophylactic vaccination against single bacterial disease Encounter for long-term current use of medication documented [facility] this encounter [facility]* Diagnosis Medicare annual wellness visit, subsequent- Primary Routine general medical examination at a health care facility Controlled type 2 diabetes mellitus without complication, without long-term current use of insulin (HCC) Essential hypertension Unspecified essential hypertension Mixed hyperlipidemia Encounter for screening examination for other mental health and behavioral disorders Encounter for immunization Need for other specified prophylactic vaccination against single bacterial disease Screening for depression documented in this encounter [facility]* Diagnosis Essential hypertension Unspecified essential hypertension documented in this encounter [facility] note* Diagnosis Essential hypertension- Primary Unspecified essential hypertension Controlled type 2 diabetes mellitus without complication, without long-term current use of insulin (HCC) Mixed hyperlipidemia Hyperlipidemia associated with type 2 diabetes mellitus (HCC) Encounter for therapeutic drug monitoring [facility]* Diagnosis Controlled type 2 diabetes mellitus without complication, without long-term current use of insulin (HCC) documented in this encounter [facility]* Diagnosis Mixed hyperlipidemia documented in this encounter [facility]* Diagnosis Essential hypertension Unspecified essential hypertension [facility] Additional Instructions Implant Used?: YesWUniversity [facility]als [facility] Work Phone: Hospital Discharge instructions Additional Instructions Please return to the ER if you develop a fever over 100.4 or your pain is not controlled outpatient therapyWUniversity Hospitals [facility] Work Phone: Summary Purpose Family History No Family History Records Found Relationship Condition Age at Onset Recorded Date/T joshua mother Malignant neoplasm Unknown father Malignant neoplasm Unknown Advance Directives No Advanced Directives Records FoundDocuments on File Type Date Recorded Patient Eligibility Technician Expl anation Advance Directive(s) 07/28/2020 12:22 PM R equired Elements of a HCPoA Advance Directive(s) 07/29/2018 9:26 AM Advance Directive(s) 07/16/2018 12:12 PM Advance Directive Response Recorded Date/ Time Advance Directives No December 03 14 4:00am Living Will No June 05 1:37pm Power of Collision Estimator No June 05, 2022 1:37pm Advance Directive Response Recorded Date/ Time Advance Directives No December 03 14 5:00am Living Will No April 07 9:48pm Power of Collision Estimator No April 07, 2023 9:48pm Chief Complaint and Reason for Visit Chief Complaint PRE-OP Chief Complaint LEFT FLANK PAIN Additional Source Comments (unrecognized sect ion and content) No Status Records FoundNo Status Records FoundNo Status Records FoundNo Status Records FoundNo Status Records Found INFORMATION SOURCE (unrecogn ized section and content) DATE CREATED AUTHOR 12/11/2017 [facility] DATE CREATED AUTHOR AUTHOR'S ORGANIZ ATION 12/11/2017 [facility] DATE CREATED AUTHOR AUTHOR'S ORGANIZ ATION 09/15/2020 [facility] DATE CREATED AUTHOR AUTHOR'S ORGANIZ ATION 07/18/2022 [facility] DATE CREATED AUTHOR AUTHOR'S ORGANIZ ATION 04/08/2025 [facility] Source Comments (unrecognize d section and content) In the event this informatio n is protected by the Federal Confidentiality of Alcohol and Drug Abuse Patient Records regulations: The Federal rules restrict any use of the information to criminally investigate or prosecute any alcohol or drug abuse patient.[facility]In the event this information is protected by the Federal Confidentiality of Alcohol and Drug Abuse Patient Records regulations: The Federal rules restrict any use of the information to criminally investigate or prosecute any alcohol or drug abuse patient.[facility] HospitalIn the event this information is protected by the Federal Confidentiality of Alcohol and Drug Abuse Patient Records regulations: The Federal rules restrict any use of the information to criminally investigate or prosecute any alcohol or drug abuse patient.[facility] HospitalIn the event this information is protected by the Federal Confidentiality of Alcohol and Drug Abuse Patient Records regulations: The Federal rules restrict any use of the information to criminally investigate or prosecute any alcohol or drug abuse patient.[facility] HospitalIn the event this information is protected by the Federal Confidentiality of Alcohol and Drug Abuse Patient Records regulations: The Federal rules restrict any use of the information to criminally investigate or prosecute any alcohol or drug abuse patient.[facility] HospitalIn the event this information is protected by the Federal Confidentiality of Alcohol and Drug Abuse Patient Records regulations: The Federal rules restrict any use of the information to criminally investigate or prosecute any alcohol or drug abuse patient.[facility] HospitalIn the event this information is protected by the Federal Confidentiality of Alcohol and Drug Abuse Patient Records regulations: The Federal rules restrict any use of the information to criminally investigate or prosecute any alcohol or drug abuse patient.[facility] HospitalIn the event this information is protected by the Federal Confidentiality of Alcohol and Drug Abuse Patient Records regulations: The Federal rules restrict any use of the information to criminally investigate or prosecute any alcohol or drug abuse patient.[facility] HospitalIn the event this information is protected by the Federal Confidentiality of Alcohol and Drug Abuse Patient Records regulations: The Federal rules restrict any use of the information to criminally investigate or prosecute any alcohol or drug abuse patient.[facility] HospitalIn the event this information is protected by the Federal Confidentiality of Alcohol and Drug Abuse Patient Records regulations: The Federal rules restrict any use of the information to criminally investigate or prosecute any alcohol or drug abuse patient.[facility] HospitalIn the event this information is protected by the Federal Confidentiality of Alcohol and Drug Abuse Patient Records regulations: The Federal rules restrict any use of the information to criminally investigate or prosecute any alcohol or drug abuse patient.[facility] HospitalIn the event this information is protected by the Federal Confidentiality of Alcohol and Drug Abuse Patient Records regulations: The Federal rules restrict any use of the information to criminally investigate or prosecute any alcohol or drug abuse patient.[facility] HospitalIn the event this information is protected by the Federal Confidentiality of Alcohol and Drug Abuse Patient Records regulations: The Federal rules restrict any use of the information to criminally investigate or prosecute any alcohol or drug abuse patient.[facility] HospitalIn the event this information is protected by the Federal Confidentiality of Alcohol and Drug Abuse Patient Records regulations: The Federal rules restrict any use of the information to criminally investigate or prosecute any alcohol or drug abuse patient.[facility] HospitalIn the event this information is protected by the Federal Confidentiality of Alcohol and Drug Abuse Patient Records regulations: The Federal rules restrict any use of the information to criminally investigate or prosecute any alcohol or drug abuse patient.[facility] HospitalIn the event this information is protected by the Federal Confidentiality of Alcohol and Drug Abuse Patient Records regulations: The Federal rules restrict any use of the information to criminally investigate or prosecute any alcohol or drug abuse patient.[facility] HospitalIn the event this information is protected by the Federal Confidentiality of Alcohol and Drug Abuse Patient Records regulations: The Federal rules restrict any use of the information to criminally investigate or prosecute any alcohol or drug abuse patient.[facility] HospitalIn the event this information is protected by the Federal Confidentiality of Alcohol and Drug Abuse Patient Records regulations: The Federal rules restrict any use of the information to criminally investigate or prosecute any alcohol or drug abuse patient.[facility] HospitalIn the event this information is protected by the Federal Confidentiality of Alcohol and Drug Abuse Patient Records regulations: The Federal rules restrict any use of the information to criminally investigate or prosecute any alcohol or drug abuse patient.[facility] HospitalIn the event this information is protected by the Federal Confidentiality of Alcohol and Drug Abuse Patient Records regulations: The Federal rules restrict any use of the information to criminally investigate or prosecute any alcohol or drug abuse patient.[facility] HospitalIn the event this information is protected by the Federal Confidentiality of Alcohol and Drug Abuse Patient Records regulations: The Federal rules restrict any use of the information to criminally investigate or prosecute any alcohol or drug abuse patient.[facility] HospitalIn the event this information is protected by the Federal Confidentiality of Alcohol and Drug Abuse Patient Records regulations: The Federal rules restrict any use of the information to criminally investigate or prosecute any alcohol or drug abuse patient.[facility] Reason for Visit (unrecogniz ed section and content) Reason Comments F/U 6 months Reason Onset Date Comments Refill Request 02/27/2022 Reason Onset Date Comments Refill Request 03/25/2022 Reason Onset Date Comments Refill Request 04/19/2022 Reason Onset Date Comments Refill Request 04/29/2022 Reason Comments F/U 6 months Labs prior Reason Onset Date Comments Refill Request 12/29/2022 Reason Onset Date Comments Refill Request 02/06/2023 Reason Onset Date Comments Refill Request 02/20/2023 Reason Comments Yearly Exam 6 month follow up wi th labs prior Reason Comments Cough Congestion, sore thr oat, HELMS, fatigue x 5 days Reason Comments Patient Update cough continues and elevated blood sugars Reason Onset Date Comments Refill Request 06/04/2023 Reason Comments Medicare Wellness Exam Labs prior Reason Onset Date Comments Allied Health Visit 07/31/2024 Medication A dherence Outreach Reason Onset Date Comments Refill Request 08/02/2024 Reason Onset Date Comments Refill Request 10/30/2024 Reason Onset Date Comments Refill Request 11/22/2024 Reason Onset Date Comments Refill Request 01/25/2025 Care Teams (unrecognized sec tion and content) Bookstore Manager Relationship Specialty Start Date End Date India Sams MD [address] [place] [address] PCP - General Internal Medicine 01/03/13 Yobani Davis [address] [place] [address] [id number] NA Optometry 07/28/20 Bookstore Manager Relationship Specialty Start Date End Date India Sams MD [address] [place], [place] [id number] PCP - General Internal Medicine 01/03/13 Yobani Davis [address] [place] [address] [id number] NA Optometry 07/28/20 Bookstore Manager Relationship Specialty Start Date End Date India Sams MD [address] [place] [address] PCP - General Internal Medicine 01/03/13 Yobani Davis [address] [place] [address] [id number] NA Optometry 07/28/20 Bookstore Manager Relationship Specialty Start Date End Date India Sams MD [address] [place] [address] PCP - General Internal Medicine 01/03/13 Yobani Davis [address] [place] [address] [id number] NA Optometry 07/28/20 Bookstore Manager Relationship Specialty Start Date End Date India Sams MD [address] [place] [address] PCP - General Internal Medicine 01/03/13 Yobani Davis [address] [phone] NA Optometry 07/28/20 Bookstore Manager Relationship Specialty Start Date End Date India Sams MD [address] [place] [address] PCP - General Internal Medicine 01/03/13 Yobani Davis [address] [place] [address] [id number] NA Optometry 07/28/20 Bookstore Manager Relationship Specialty Start Date End Date India Sams MD [address] [place] [address] PCP - General Internal Medicine 01/03/13 Yobani Davis [address] [place] [address] NA Optometry 07/28/20 Bookstore Manager Relationship Specialty Start Date End Date India Sams MD [address] [place] [address] PCP - General Internal Medicine 01/03/13 Yobani Davis [address] [place] [address] [id number] NA Optometry 07/28/20 Team Status: Active Member Role Status Dates Dr. India Sams MD Family Provider Active Dr. India Sams MD Primary Care Provider Active Team Status: Inactive Member Role Status Dates Dr. India Sams MD Primary Care Provider Active Dr. Gabe Arevalo DO Emergency Provider Active Bookstore Manager Relationship Specialty Start Date End Date India Sams MD [address] [place] [address] PCP - General Internal Medicine 01/03/13 Yobani Davis, OD [address] [place] [address] [id number] NA Optometry 07/28/20 Bookstore Manager Relationship Specialty Start Date End Date India Sams MD [address] [place] [address] PCP - General Internal Medicine 01/03/13 Yobani Davis, OD [address] [place] [address] [id number] NA Optometry 07/28/20 Bookstore Manager Relationship Specialty Start Date End Date India Sams MD [address] [place] [address] PCP - General Internal Medicine 01/03/13 Yobani Davis, OD [address] [place] [address] [phone] NA Optometry 07/28/20 Bookstore Manager Relationship Specialty Start Date End Date India Sams MD [address] [place] [address] PCP - General Internal Medicine 01/03/13 Yobani Davis, OD [address] [place] [address] 00502 NA Optometry 07/28/20 Bookstore Manager Relationship Specialty Start Date End Date India Sams MD [address] [place] [address] PCP - General Internal Medicine 01/03/13 Yobani Davis, OD [address] [place] [address] [phone] NA Optometry 07/28/20 Bookstore Manager Relationship Specialty Start Date End Date India Sams MD [address] [place] [address] PCP - General Internal Medicine 01/03/13 Yobani Davis, OD [address] [place] [address] [id number] NA Optometry 07/28/20 Bookstore Manager Relationship Specialty Start Date End Date India Sams MD [address] [place] [address] PCP - General Internal Medicine 01/03/13 Yobani Davis, OD [address] [place] [address] [id number] NA Optometry 07/28/20 Abigail Harkins, TECHNICAL SUPPORT ANALYST.SENIOR EDITOR [address] [place] [address] Field Marketing Team Leader Internal Medicine 05/26/24 Marium Valerio TECHNICAL SUPPORT ANALYST.PACKING AND STAMPING MACHINE OPERATOR [address] [place] [id number] [facility] Internal Medicine 05/26/24 Bookstore Manager Relationship Specialty Start Date End Date India Sams MD [address] [place] [address] PCP - General Internal Medicine 01/03/13 Yobani Davis, OD [address] [place] [address] [id number] NA Optometry 07/28/20 Abigail Harkins, TECHNICAL SUPPORT ANALYST.SENIOR EDITOR [address] [place] [address] Field Marketing Team Leader Internal Medicine 05/26/24 Marium Valerio TECHNICAL SUPPORT ANALYST.PACKING AND STAMPING MACHINE OPERATOR [facility] [place] [address] Field Marketing Team Leader Internal Medicine 05/26/24 Bookstore Manager Relationship Specialty Start Date End Date India Sams MD [address] [place] [address] PCP - General Internal Medicine 01/03/13 Yobani Davis, OD [address] [place] [id number] NA Optometry 07/28/20 Abigail Harkins, TECHNICAL SUPPORT ANALYST.SENIOR EDITOR [address] [place] [address] Field Marketing Team Leader Internal Medicine 05/26/24 Marium Valerio TECHNICAL SUPPORT ANALYST.PACKING AND STAMPING MACHINE OPERATOR [address] [place] [address] Field Marketing Team Leader Internal Medicine 09/09/24 Bookstore Manager Relationship Specialty Start Date End Date India Sams MD [address] [place] [address] PCP - General Internal Medicine 01/03/13 Yobani Davis, OD [address] [place] [id number] NA Optometry 07/28/20 Abigail Harkins, TECHNICAL SUPPORT ANALYST.SENIOR EDITOR [address] [place] [address] Field Marketing Team Leader Internal Medicine 05/26/24 Marium Valerio TECHNICAL SUPPORT ANALYST.PACKING AND STAMPING MACHINE OPERATOR [address] [place] [address] Field Marketing Team Leader Internal Medicine 09/09/24 Bookstore Manager Relationship Specialty Start Date End Date India Sams MD [address] [place] [address] PCP - General Internal Medicine 01/03/13 Yobani Davis, OD [address] [place] [id number] NA Optometry 07/28/20 Marium Vaelrio APRN.PACKING AND STAMPING MACHINE OPERATOR [address] [place], [place] [address] [facility] Internal Medicine 09/09/24 Abigail Harkins APRN.SENIOR EDITOR [address] [place], [place] [id number] [facility] Internal Medicine 11/05/24 Bookstore Manager Relationship Specialty Start Date End Date India Sams MD [address] [place], [place] [id number] PCP - General Internal Medicine 01/03/13 Yobani Davis OD [address] [place] [id number] NA Optometry 07/28/20 Marium Valerio APRN.PACKING AND STAMPING MACHINE OPERATOR [address] [place], [place] [id number] [facility] Internal Medicine 09/09/24 Abigail Harkins APRN.SENIOR EDITOR [address] [place], [place] [id number] [facility] Internal Medicine 11/05/24 Goals (unrecognized section and content) Goals may be documented in a n alternate section FOR RECORDS PERTAINING TO PATIENTS WHO ARE OR HAVE BEEN ENROLLED IN A CHEMICAL DEPENDENCY/SUBSTANCEABUSE PROGRAM, SOME INFORMATION MAY BE OMITTED. This clinical summary was aggregated from multiple sources. Caution should be exercised in using it in the provision of clinical care. This summary normalizes information from multiple sources, and as a consequence, information in this document may materially change the coding, format and clinical context of patient data. In addition, data may be omitted in some cases. CLINICAL DECISIONS SHOULD BE BASED ON THE PRIMARY CLINICAL RECORDS. [facility]. provides no warranty or guarantee of the accuracy or completeness of information in this document.
[2025-04-26] MEDS: Lidocaine 1% (20 ml mdv) 20 ML Vial INFILT (15:30)
[2025-04-26] MEDS: Lidocaine/Epi/Tetracaine 50 ML 1 APPLIC TOPICAL (15:31)
--- NOTE | 2025-04-26 16:01 | EX.ED.GENINJ ---
HPI History of Present Illness Chief Complaint: Laceration Informant: patient and spouse/S.O. Narrative Narrative: 74-year-old male presenting to the emergency room with a chief complaint of finger laceration. Patient states that he was trying to open an object with a knife when he cut his right thumb. He notes tetanus up-to-date. Bleeding controlled with pressure. He is left-handed. Tetanus [facility]ization: <[facility] History Wears glasses Back pain Dietary restriction Former smoker History of stress test Cardiology follow-up encounter Hyperlipidemia HTN (hypertension) Diabetes AAA (abdominal aortic aneurysm) without rupture Home Medications ?Medication ?Instructions ?Recorded ?Last Taken ?Type amlodipine 5 mg tablet 5 mg PO DAILY 10/31/16 06/08/22 History ascorbic acid (vitamin C) 500 mg 500 mg PO DAILY@0800 10/31/16 10/31/16 History tablet aspirin 81 mg chewable tablet 81 mg PO DAILY@0800 10/31/16 10/31/16 History atorvastatin 20 mg tablet 20 mg PO QHS 10/31/16 10/30/16 History cinnamon bark 500 mg capsule 500 mg PO DAILY 10/31/16 10/31/16 History lisinopril 30 mg tablet 40 mg PO DAILY 10/31/16 06/08/22 History metformin 500 mg tablet,extended 500 mg PO TID 08/03/17 Unknown History release 24 hr carvedilol 6.25 mg tablet 6.25 mg PO BID 06/05/22 06/08/22 History ketorolac 10 mg tablet 10 mg PO Q6H PRN pain 5 days #20 04/07/23 Unknown Rx tabs ondansetron 4 mg disintegrating 4 mg PO TID PRN nausea and 04/07/23 Unknown Rx tablet vomiting #21 tabs oxycodone-acetaminophen 5 mg-325 1 tab PO Q6H PRN pain 3 days #12 04/07/23 Unknown Rx mg tablet (Percocet) tabs tamsulosin 0.4 mg capsule (Flomax) 0.4 mg PO DAILY #14 caps 04/07/23 Unknown Rx Allergy/AdvReac Type Severity Reaction Status Date / Time No Known Allergies Allergy Verified 04/26/25 13:02 Family History Mother Cancer lung Father Cancer brain Surgical History S/P colonoscopy S/P tonsillectomy Status post AAA (abdominal aortic aneurysm) repair Social History Smoking Status: Former smoker ROS ROS ED Constitutional Constitutional ED: Denies chills, fever(s) or weight loss Eyes Eyes: Denies change in vision or diplopia ENT ENT ED: Denies ear pain, rhinorrhea or sore throat Cardiovascular Cardiovascular: Denies chest pain, orthopnea, palpitations or racing heartbeat Respiratory/Chest Respiratory/Chest: Denies cough, dyspnea or orthopnea Gastrointestinal Gastrointestinal: Denies abdominal pain, diarrhea, nausea or vomiting Genitourinary Genitourinary ED: Denies dysuria, hematuria or urinary frequency Musculoskeletal Musculoskeletal: Denies arthralgias or myalgias Integumentary Reports other Details: see HPI ; Denies abscess or rash Neurologic Neurologic: Denies headache(s) or weakness Psychiatric Psychiatric: Denies anxiety, depression, suicidal ideation or suicidal thoughts Endocrine Endocrinology: Denies polydipsia, polyphagia or polyuria Allergic/Immunologic Allergic/Immunologic ED: Denies mouth swelling, tongue swelling or urticaria EXAM Physical Exam Const Vital Signs: 04/26/25 13:01 Temperature 97.6 F L Temperature Source Oral Pulse Rate 65 Respiratory Rate 18 Blood Pressure 150/74 H Blood Pressure Mean 99 Pulse Ox 99 Oxygen Delivery Method Room Air Positive well nourished and well developed General Appearance ED: well developed and NAD HEENT Reports normocephalic, head/scalp atraumatic and moist mucous membranes Eyes PERRL and EOMs intact bilaterally Neck no lymphadenopathy, supple and no JVD Resp normal respiratory effort and clear to auscultation bilaterally Cardio regular rate, regular rhythm and no murmurs GI normal to inspection, nondistended, normoactive bowel sounds and non-tender Palpation: soft Back/Spine no CVA tenderness and normal ROM Extremity Extremity Narrative: There is a 2.5 cm laceration over the medial surface of the right thumb extending down to the interphalangeal joint. He appears neurovascularly intact. There is normal tendon function. General Extremety ED: Negative for edema General Extremity: Negative for edema Neuro oriented x3 and CN's II-XII intact bilaterally Sensorium / Orientation: alert Motor Exam: strength 5/5 throughout Psych mental status grossly normal Mood & Affect: Negative for depressed or tearful Skin no rashes or lesions noted and no wounds MDM MDM MDM Narrative Medical decision making narrative: Differential diagnosis includes laceration, neurovascular injury, tendon injury bone injury nailbed injury Wound was locally anesthetized using LAT and then 1% lidocaine. Was washed with Shur-Clens and explored. I do not see any tendon deficits or obvious neurovascular injury. There is no nail injury. It does not appear deep to the joint. It was closed using a total of 5 simple erupted 5-0 Ethilon sutures. Stitches will need to be removed 7 to 10 days. Local wound care discussed with patient follow-up with primary care return if worsening or concerns History & Record Review Discussion w/independent historian: Patient and Significant other Discharge Plan Triage Chief Complaint: Laceration ED Provider: Wali Lane Dx/Rx/DC Orders Clinical Impression: Finger laceration Instructions: ED Hand Laceration- All Closures Prescriptions: No Action metformin 500 mg tablet extended release 24 hr 500 mg PO TID atorvastatin 20 MG tablet 20 mg PO QHS amlodipine 5 MG tablet 5 mg PO DAILY ascorbic acid (vitamin C) 500 MG tablet 500 mg PO DAILY@0800 lisinopril 30 MG tablet 40 mg PO DAILY aspirin 81 MG tablet,chewable 81 mg PO DAILY@0800 cinnamon bark 500 MG capsule 500 mg PO DAILY carvedilol 6.25 mg Tablet 6.25 mg PO BID Rx Instructions: must administer with a meal/food tamsulosin [Flomax] 0.4 mg capsule 0.4 mg PO DAILY Qty: 14 0RF ondansetron 4 mg tablet,disintegrating 4 mg PO TID PRN (Reason: nausea and vomiting) Qty: 21 0RF ketorolac 10 mg tablet 10 mg PO Q6H PRN (Reason: pain) 5 Days Qty: 20 0RF oxycodone-acetaminophen [Percocet] 5-325 mg tablet 1 tab PO Q6H PRN (Reason: pain) 3 Days Qty: 12 0RF Primary Care Provider: Gladys Sams Referrals: Gladys Sams MD [Primary Care Provider, Internal Medicine] Referral Note: appt next sunday for suture removal Print Language: Nigerian Disposition Disposition: Home, Self Care
[2025-04-26 16:12] VITALS: BP 149/69; PULSE 73; RESP 14; TEMP 36.1; O2SAT 100
== END 2025-04-26 16:13 | disposition home or self-care (01) ==
PROVIDERS: Emergency Provider Emergency Medicine; PCP Internal Medicine; Visit Provider Emergency Medicine
DX: S61.011A Laceration without foreign body of right thumb without damage to nail, initial encounter (principal); E11.69 Type 2 diabetes mellitus with other specified complication; W26.0XXA Contact with knife, initial encounter; E78.5 Hyperlipidemia, unspecified; I10 Essential (primary) hypertension; Z79.82 Long term (current) use of aspirin; Z79.84 Long term (current) use of oral hypoglycemic drugs; Z79.899 Other long term (current) drug therapy; Z87.891 Personal history of nicotine dependence
CPT/HCPCS: 12001; 99283